=== PATIENT | male | born 1935 | race Caucasian/White ===

== ENCOUNTER 2017-12-12 15:28 | Inpatient (IN) | payer MEDICARE, OTHER, SELFPAY ==
[2017-12-12 15:45] VITALS: BP 153/55; PULSE 68; RESP 19; TEMP 37; O2SAT 97
--- NOTE | 2017-12-12 16:36 | DI.RAD.S_ITS ---
PROCEDURE: XR KNEE RT 3V INDICATIONS: pain TECHNIQUE: 3 views of the knee were acquired. COMPARISON: None. FINDINGS: Bones: No fractures or dislocations but there is calcific tendinitis involving the quadriceps tendon insertion on the superior anterior border of the patella and also the patellar tendon insertion on the anterior tibial tubercle. No suspicious bony lesions. Soft tissues: No definite joint effusion but there does appear to be mild soft tissue swelling in the suprapatellar soft tissues seen on the lateral view and also anterior to the patella on the patellar sunrise view. No suspicious soft tissue calcifications. IMPRESSION: A fracture is not seen. There is soft tissue swelling adjacent to the upper anterior border of the patella and perhaps this results from some recent form of trauma to the soft tissues. Please also correlate for whether infection in the soft tissues might be present. Incidental mode is made of mild calcific tendinitis as discussed. Dictated by: Eran Delatorre M.D. on 12/12/2017 at 16:58 Approved by: Eran Delatorre M.D. on 12/12/2017 at 17:01
[2017-12-12 16:41] VITALS: BMI 24.5
[2017-12-12 16:53] VITALS: BP 153/55; PULSE 68; RESP 19; TEMP 37; O2SAT 97
--- NOTE | 2017-12-12 17:14 | PM.HP.1 ---
History of Present Illness Date Patient Seen: 12/12/17 Time Patient Seen: 13:16 Chief complaint: DIRECT ADMIT Narrative: Patient has a known hx of severe gout for some time. He developed particular pain in r knee a cuple mos ago that grew increasingly disabling, to the point were he has spend most of the ensuing mos in bed, ardly able to get to the bath or other ADLs. Has pain diffusely, but sarah in the knee. Wif finally talked him in to being seen, so was brought to office by brother in law, who said it was all they could do to get him out of his bedroom and into the car, did not feel they could do the reverse. Pt feels OK about admission and SNF as needed. Just wants help with the pain and to get backon his feet. Given this admission was required, and feel he is likely to need more than 2 mn staty to get this sorted out and tx underway. Patient History Comment: CABG Ankle surgery Greater tuberosity fx, ORIF Family & Social History Family History: Reviewed 12/12/17 by Andrew Alexandra MD Family history unavailable: No Social History: household members spouse,family,children Safety & Behavioral: Feels Safe in Current Yes Environment Been Physically Hurt or No Threatened By a Person Suicidal Ideation Description None Suicide Plan Description No Plan Tobacco & Substance use: Smoking Status Never smoker alcohol intake current alcohol intake frequency a few times a month Substance Use Type does not use Meds Home Medications Medication Instructions Recorded Confirmed Type probenecid 500 mg PO AMCC #0 tab 02/16/16 History sertraline 100 mg PO QDAY #0 tab 02/16/16 History VITAMIN D (Vitamin D3) 5,000 u PO QDAY #0 06/23/17 History clopidogrel [Plavix] 75 mg PO 1200 #30 tab 06/29/17 Rx pantoprazole [Protonix] 40 mg IV Q12H #30 tab 06/29/17 Rx prednisone 60 mg PO QDAY 14 Days #0 tab 06/29/17 Rx probenecid 500 mg PO AMCC #30 tab 06/29/17 Rx sertraline [Zoloft] 100 mg PO 1200 #30 06/29/17 Rx clopidogrel PO DAILY 12/12/17 History Review of Systems Constitutional Constitutional: Reports body ache(s), Reports fatigue, Reports malaise and Reports weakness Eyes Eyes: Reports system reviewed; no additional complaints, except as documented ENT Ears, Nose, Mouth, and Throat: Yes system reviewed; no additional complaints, except as documented Cardiovascular Cardiovascular: Reports system reviewed; no additional complaints, except as documented Respiratory Respiratory: Reports system reviewed and no additional complaints, except as documented Gastrointestinal Gastrointestinal: Reports system reviewed and no additional complaints, except as documented Genitourinary Genitourinary: Reports system reviewed and no additional complaints, except as documented Musculoskeletal Musculoskeletal: Reports abnormal gait, Reports myalgias, Reports arthralgias, Reports joint swelling and Reports muscle weakness Integumentary/Breasts Skin/Breast: Reports system reviewed and no additional complaints, except as documented Neurologic Neurologic: Reports abnormal gait, Reports confusion and Reports weakness Psychiatric Psychiatric: Reports confusion and Reports depression Endocrine Endocrine: Reports system reviewed and no additional complaints, except as documented and Reports fatigue Hematologic/Lymphatic Hematologic/Lymphatic: Reports system reviewed and no additional complaints, except as documented Allergic/Immunologic Allergic/Immunologic: Reports system reviewed and no additional complaints, except as documented Exam Vital Signs (past 8 hours): Vital Signs - 8 hr 12/12/17 15:45 12/12/17 16:53 Temperature 98.6 F 98.6 F Pulse Rate 68 68 Respiratory Rate 19 19 Blood Pressure 153/55 H 153/55 H Pulse Oximetry 97 97 Pulse Oximetry 97 Const General: frail appearing and ill appearing [facility] Head: normocephalic and atraumatic Ears: external ears normal Nose: external nose normal Face and sinus: normal facial exam Mouth: oral mucosae normal Teeth and gingiva: dentition normal Eyes General: appearance normal, both eyes and all related structures Neck Neck: normal visual inspection Thyroid: thyroid normal Chest Chest: normal inspection of the chest Resp Effort & Inspection: normal respiratory effort and able to speak in complete sentences Cardio Palpation: normal PMI Rate: regular rate Rhythm: regular rhythm GI Inspection: normal to inspection Palpation: soft and no hepatosplenomegaly Auscultation: normal bowel sounds Back/Spine/Pelvis Back: normal to inspection and back tenderness Thoracic/Lumbar Spine: thoracic and lumbar spine normal to inspection Skin General: no rashes or lesions noted Neuro General: alert, awake, oriented x3, moves all extremities, no focal motor deficits and CN's II-XI intact bilaterally Cognition: abnormal cognition Speech: speech normal Gait: ataxic Motor: muscle tone normal throughout Extrem Right upper extremity: normal to inspection Left upper extremity: normal to inspection Right lower extremity: knee Details: tenderness and swelling Left lower extremity: foot Details: tenderness Psych Appearance: grossly normal Mental Status: mental status grossly normal Assessment & Plan (1) Gout: Problem details: Chronic and worsening, now profoundly disabling Current visit: Yes Status: Acute (2) Gouty tophi: Problem details: multiple, some painful Current visit: Yes Status: Acute (3) Generalized weakness: Problem details: Worsening, essentially bed-bound Current visit: Yes Status: Acute (4) Myalgia: Problem details: Some hx of PMR Current visit: Yes Status: Acute (5) Arthralgia: Problem details: as above Current visit: Yes Status: Acute (6) Chronic renal failure, stage 3 (moderate): Problem details: long hx Current visit: No Status: Acute (7) Coronary artery disease: Problem details: not a current concern Current visit: No Status: Acute (8) Depression: Problem details: ongoing medication Current visit: No Status: Acute (9) Hyperlipidemia: Problem details: on med Current visit: No Status: Acute (10) Polymyalgia rheumatica: Problem details: not certain of current status, followed by rheum. Current visit: No Status: Acute (11) Systolic murmur: Current visit: No Status: Acute (12) Chronic pain: Problem details: as above. Current visit: Yes Status: Acute (13) Anemia: Current visit: No Status: Acute Plan: Assessment/Plan Narrative: will treat gout aggressively with combo of uloric, colchicine, prednisone, and narcotics. Check x-ray of knee, and labs. Eval by PT and OT. Likely SNF to follow. Quality VTE Deep Vein Thrombosis/Pulmonary Embolism Present on Admission: No
[2017-12-12] MEDS: PANTOPRAZOLE 40 MG VIAL IV (17:31)
[2017-12-12] MEDS: predniSONE 20 MG TABLET 60 MG PO (17:31)
[2017-12-12] MEDS: SERTRALINE 50 MG TABLET 100 MG PO (17:31)
[2017-12-12] MEDS: OXYCODONE IR 10 MG TABLET PO (17:32)
[2017-12-12 17:54] LABS: Hematocrit 31.6 % (41-53); Hemoglobin 10.4 g/dL (13.5-17.5); Mean Corpuscular HGB Conc 32.8 % (30-36); Mean Corpuscular Hemoglobin 28.3 PG (26-34); Mean Corpuscular Volume 86.2 fL (80-100); Platelet Count 256 X10^3/uL (150-400); Red Blood Cell Count 3.66 X10^6/uL (4.5-5.9); Red Cell Distribution Width 17.9 % (11.6-14.8); White Blood Cell Count 11.6 X10^3/uL (4.5-11.0)
[2017-12-12 17:59] LABS: Add Manual Diff / Slide Review YES
[2017-12-12 19:06] LABS: Alanine Aminotransferase 59 IU/L (21-72); Albumin 3.4 g/dL (3.5-5.0); Albumin Globulin Ratio 0.9 (1.0-2.8); Alkaline Phosphatase 78 U/L (38-126); Aspartate Aminotransferase 36 IU/L (17-59); Bilirubin Total 0.4 mg/dL (0.2-1.3); Blood Urea Nitrogen 64 mg/dL (9-20); Calcium 9.7 mg/dL (8.4-10.2); Carbon Dioxide 22 mmol/L (22-32); Chloride 107 mmol/L (98-107); Estimated Glomerular Filt Rate 32.3 mL/min (>60); Globulin 3.7 g/dL (1.7-4.1); Glucose 116 mg/dL (80-110); HEMOLYSIS 41 (0-50); Potassium 4.2 mmol/L (3.4-5.1); Sodium 142 mmol/L (137-145); Total Protein 7.1 g/dL (6.3-8.2); Uric Acid 5.7 mg/dL (3.5-8.5)
[2017-12-12 19:08] LABS: Neutrophils Absolute Manual 8816 /uL (3000-5900); Nucleated Red Blood Cells 1 #/Diff; Total Cells Counted 100
[2017-12-12 19:09] LABS: Anisocytosis 1+
[2017-12-12 20:30] VITALS: BP 156/74; PULSE 69; RESP 19; TEMP 37.1; O2SAT 96
[2017-12-12 20:37] LABS: Erythrocyte Sedimentation Rate 133 MM/HR (0-15)
[2017-12-12] MEDS: COLCHICINE 0.6 MG TABLET PO (20:55)
[2017-12-12 23:00] VITALS: BP 164/71; PULSE 55; RESP 16; TEMP 36.7; O2SAT 98
[2017-12-13] VITALS (10 sets, daily range): BP systolic 147–191; BP diastolic 60–81; PULSE 47–59; RESP 16–18; TEMP 35.8–37.1; O2SAT 95–99
[2017-12-13] MEDS: OXYCODONE IR 10 MG TABLET PO ×4 (00:21→23:50)
[2017-12-13] MEDS: PANTOPRAZOLE 40 MG VIAL IV ×2 (04:26→16:54)
[2017-12-13] MEDS: SODIUM CHLORIDE 0.9% FLUSH 10 ML IV ×4 (04:26→21:09)
[2017-12-13] MEDS: COLCHICINE 0.6 MG TABLET PO (09:16)
[2017-12-13] MEDS: ENOXAPARIN 40 MG/0.4 ML SYRINGE SUBCUT (09:16)
[2017-12-13] MEDS: FEBUXOSTAT PO (09:17)
[2017-12-13] MEDS: predniSONE 20 MG TABLET 60 MG PO (09:21)
[2017-12-13] MEDS: SERTRALINE 50 MG TABLET 100 MG PO (09:21)
--- NOTE | 2017-12-13 12:21 | PT.IIE ---
Current Diagnoses Anemia, unspecified (12/12/17) Hyperlipidemia, unspecified (12/12/17) Major depressive disorder, single episode, unspecified (12/12/17) Atherosclerotic heart disease of [place] coronary artery without angina pectoris (12/12/17) Chronic gout, unspecified, with tophus (tophi) (12/12/17) Pain in unspecified joint (12/12/17) Polymyalgia rheumatica (12/12/17) Myalgia (12/12/17) Chronic kidney disease, stage 3 (moderate) (12/12/17) Cardiac murmur, unspecified (12/12/17) Physical Therapy Inpatient Evaluation/Re-Eval M1 PT/OT-IP Prior Functional Status Start: 12/13/17 12:10 Freq: NEEDED Status: Active Protocol: Document 12/13/17 12:11 AB (Rec: 12/13/17 12:21 AB [id number]) Medical Review Prior Functional Status Medical History Reviewed Yes Mobility and Gait per daughter: pt requires assists with all tasks. spouse has been assistng pt for the ~ last 7 months and pt not able to ambulate without physical assist even with use of FWW. Activities of Daily Living and IADL's requires assist with all ADLs Social History Household Members spouse Living Arrangements House Number of Floors (Floors) Two Floors Number of Stairs To Enter/Railing? 1 step to enter; 15 steps + landing+15 steps to 2nd floor bed room with R rail ascending Home Environment Standard Height Toilet Walk in Shower Home Equipment Front Wheel Walker Shower Seat with Backrest Employment Status Retired M2 PT-IP Current Condition Start: 12/13/17 12:10 Freq: NEEDED Status: Active Protocol: Document 12/13/17 12:11 AB (Rec: 12/13/17 12:21 AB [id number]) Physical Therapy Current Condition Current Condition Evaluation Date 12/13/17 Treatment Diagnosis R knee pain Onset Date 12/12/17 M3 PT-IP Subjective Start: 12/13/17 12:10 Freq: NEEDED Status: Active Protocol: Document 12/13/17 12:11 AB (Rec: 12/13/17 12:21 AB [id number]) Subjective Physical Therapy Visit Type Type Initial Evaluation Visit Start Time 10:55 Visit Stop Time 11:30 Total Visit Minutes 35 Number of LEASING PROPERTY MANAGER Visits 0 Physical Therapy Visit Comments Patient Comments pt agreeable to do therapy Therapy Pain Assessment Pain When Pain Assessed At Rest Pain Present Pain Present Pain Reported Location Right Knee Intensity 6 Scale Used Numeric (1 - 10) M4 PT-IP Mobility and Gait Start: 12/13/17 12:10 Freq: NEEDED Status: Active Protocol: Document 12/13/17 12:11 AB (Rec: 12/13/17 12:21 AB [id number]) PT-Bed Mobility Assessment Supine to Sit Supine to Sit Standby Assistance Bedrails PT-Transfer Assessment Sit to and From Stand Sit to and from Stand Moderate Assistance Maximum Assistance Transfers Transfer Destination Chair Comments Mobility Comments required mod to max A and cues for sit <>stand; initially was not weight bearing on R knee and required instruction/ cue to weight bear Gait Assessment Gait Gait Assistance Required: Moderate Assistance Maximum Assistance Distance (Feet) (feet) 15 Able to Maintain Weight Bearing Status Yes During Gait Assistive Devices Assistive Device Gait Belt Front Wheeled Walker Gait Deviations General Gait Pattern Antalgic Decreased Stride Length Decreased Feet Clearance Factors Limiting Gait Function Factors Limiting Gait Function Decreased Activity Tolerance Decreased Strength Pain Poor Balance Poor Safety Awareness Comments Gait Comments increase R knee flexion during standing/ambulation; initial ambulation requiring mod A but required max A towards end of ambulation PT-Balance Assessment Sitting Balance and Reactions Static Sitting Balance Ability Good Dynamic Sitting Balance Ability Fair Standing Balance and Reactions Static Standing Balance Ability Fair Dynamic Standing Balance Ability Poor M5 PT-IP Objective Assessments Start: 12/13/17 12:10 Freq: NEEDED Status: Active Protocol: Document 12/13/17 12:11 AB (Rec: 12/13/17 12:21 AB [id number]) Orientation Orientation/Cognition Level of Alertness Alert Orientation Name Place Situation Safety Awareness Decreased Safety Awareness Memory Description Short Term Impaired Jail Impaired Gross Range of Motion Lower Extremity ROM Assessment Bilaterally Impaired Impairments R knee flexion contracture of ~ 30 deg Strength Lower Extremity Strength Assessment Bilaterally Impaired Comments Strength Comments RLE 3+/5 LLE4-/5 M6 PT-IP Treatment Start: 12/13/17 12:10 Freq: NEEDED Status: Active Protocol: Document 12/13/17 12:11 AB (Rec: 12/13/17 12:21 AB [id number]) Physical Therapy Treatment Education Education Provided Safety M7 PT-IP Assessment and Plan Start: 12/13/17 12:10 Freq: NEEDED Status: Active Protocol: Document 12/13/17 12:11 AB (Rec: 12/13/17 12:21 AB [id number]) PT Summary Assessment and Plan Potential Rehabilitation Potential Fair Status of Condition at Evaluation Evolving Summary Impairments Pain ROM Strength Balance Tone Cognition Bed Mobility Transfers Gait Activity Tolerance Assessment Summary pt requiring mod to max A with mobility and has decrease activity tolerance requiring increase assistance towards end of ambulation. pt will require SNF rehab to improve function. Goals Bed Mobility Goal Contact Guard Assistance Transfer Goal Contact Guard Assistance Gait Goal Contact Guard Assistance Gait Distance 50 Other Goals up/down 1 step using FWW; ~ 30 steps using R rail ascending CGA Days to Meet Goals 5 Frequency of Treatment Frequency Of Treatment Twice a Day Treatment Plan Physical Therapy Treatment Plan Bed Mobility Training Transfer Training Gait Training Therapeutic Exercise Balance Retraining Post Op Education Discharge Planning Hot or Cold Pack Neuromuscular Re-ed Coordination Retraining Manual Therapy Other Recommendations and Next Treatment ambulation Focus Recommendations To Nursing Amount of Assist Needed 1 Person Assist Discharge Recommendations PT Discharge Recommendations SNF Rehab Provider Visit Care Team Role Provider Type Richard Espino MD Other Providers Physician Primary Care Provider Specialty: Family Practice Andrew Alexandra MD Admit Provider Physician Attending Provider Specialty: Family Practice
--- NOTE | 2017-12-13 13:19 | P.PN_ITS ---
Subjective Date Patient Seen: 12/13/17 Time Patient Seen: 13:13 Interval history: Patient continues with stable vital signs. Labs pending for this morning's findings. Blood pressure is elevated probably secondary to discomfort. Patient quite weak from weeks if not more of immobility secondary to pain. She has had severe and refractory gout being managed by Oncology also a component of polymyalgia rheumatica. All these things leading to sed rates of 130+. Patient also has significant component of depression as well as chronic pain. All these think are affecting clear cognitive behavior patient refused to come in for medical appointment until medication becomes too ill to take care of ADLs and gets weak enough that he can get out of bed no component of chest pain or significant shortness of breath. X-rays and lab work show borderline white count normal x-ray of knee except for soft tissue which could be a gouty tophus. Patient is on prednisone now should start the level things out in short order will need PT and probably Exam Vital Signs (past 8 hours): Vital Signs - 8 hr 3 12/13/17 08:00 12/13/17 09:20 12/13/17 12:09 Temperature 98.1 F 97.8 F Pulse Rate 47 L 55 L Respiratory Rate 18 17 Blood Pressure 166/68 H 158/81 H Pulse Oximetry 98 95 99 Pulse Oximetry 99 Oxygen Delivery Method Room Air Oxygen Flow Rate 0 Narrative Exam Narrative: Patient alert and responsive speaking clearly Other signs stable afebrile PERRLA Neck without mass or thyromegaly Lungs clear to auscultation and percussion Cardiovascular shows regular rate rhythm without as the 3 does have slight systolic murmur unchanged and no significant edema except around inflammatory areas of gout. GI with no CVA area pain and. No mass no pedal splenomegaly no rebound and no guarding. Back is spine and pelvis unremarkable. Skin is diffuse areas of inflammatory tophi I doubt there primarily infectious. I think that there probably large gouty deposits which if patient has some severe and refractory gout on multiple medications has not been hydrating or managing very well at home. Neuro shows patient alert oriented sensorimotor intact and symmetrical. Psych shows patient to be depressed flat affect not clearly mentating extremely well Objective Labs Result Diagrams: 12/12/17 17:20 12/12/17 17:20 Labs: Laboratory Results - last 24 hr 06/05/18 06/05/18 06/05/18 17:20 17:20 17:20 WBC 11.6 H RBC 3.66 L Hgb 10.4 L Hct 31.6 L MCV 86.2 MCH 28.3 MCHC 32.8 RDW 17.9 H Plt Count 256 Neut % (Auto) Not Reportable Lymph % (Auto) Not Reportable Mcdonough % (Auto) Not Reportable Eos % (Auto) Not Reportable Baso % (Auto) Not Reportable Total Counted 100 Seg Neutrophils % 76.0 H Lymphocytes % (Manual) 16.0 L Monocytes % (Manual) 5.0 Eosinophils % (Manual) 1.0 L Myelocytes % 2.0 H Neutrophils # (Manual) 8816 H Nucleated RBCs 1 H RBC Morphology Not Reportable Anisocytosis 1+ H ESR 133 H Sodium 142 Potassium 4.2 Chloride 107 Carbon Dioxide 22 BUN 64 H Creatinine 2.00 H Estimated GFR 32.3 L BUN/Creatinine Ratio 32.0 H Glucose 116 H Uric Acid 5.7 Calcium 9.7 Total Bilirubin 0.4 AST 36 ALT 59 Alkaline Phosphatase 78 Total Protein 7.1 Albumin 3.4 L Globulin 3.7 Albumin/Globulin Ratio 0.9 L Assessment & Plan Plan: Assessment/Plan Narrative: Assessment 1. Patient with severe refractory gout with intolerance of a number of medications. Patient is admitted for hydration started and prednisone initiated will continue on Uloric as well. Assessment 2. Weakness think patient is be come dehydrated and immobilized by pain to the point where he is unable stand move himself safely in anyway anticipate extended period of physical therapy required to get him to a safe point. Assessment 3. History of PMR. This could account for a muscular component to some of his pain as opposed to just gouty arthropathy. Has had elevated sed rate to 130 and that would match more with the polymyalgia component. Very complex presentation. Assessment 4. Chronic renal failure with acute renal failure superimposed. Creatinine at 2. Will hydrate and monitor values. 4. Assessment 5. Dehydration the patient was mobilized not drinking fluids while this has led to aggravation of his gout and also lead to constipation issues I think as well. Will give fluids and work on oral hydration Assessment 6 anemia. I think this is the anemia of chronic disease as well as probably related to his renal functions. Patient has continued to have long- term outs patient management with Rheumatology as well as Nephrology for managing this and all probability will monitor currently here anticipated hydration may dilute his hematocrit some. Quality VTE Deep Vein Thrombosis/Pulmonary Embolism Present on Admission: No
[2017-12-13] MEDS: CLOPIDOGREL 75 MG TABLET PO (13:58)
[2017-12-13] MEDS: DEXTROSE 5%-0.9% NS 1,000 ML 125 ML IV ×2 (14:00→22:11)
[2017-12-13 14:38] LABS: Hemoglobin 10.4 g/dL (13.5-17.5); Mean Corpuscular HGB Conc 32.5 % (30-36); Mean Corpuscular Hemoglobin 28.2 PG (26-34); Mean Corpuscular Volume 86.5 fL (80-100); Platelet Count 250 X10^3/uL (150-400); Red Blood Cell Count 3.71 X10^6/uL (4.5-5.9); Red Cell Distribution Width 17.9 % (11.6-14.8)
[2017-12-13 14:39] LABS: Add Manual Diff / Slide Review YES
[2017-12-13 14:58] LABS: Alanine Aminotransferase 54 IU/L (21-72); Albumin 3.1 g/dL (3.5-5.0); Alkaline Phosphatase 81 U/L (38-126); Aspartate Aminotransferase 21 IU/L (17-59); BUN Creatinine Ratio 32.8 (6-22); Bilirubin Total 0.3 mg/dL (0.2-1.3); Blood Urea Nitrogen 59 mg/dL (9-20); Calcium 9.5 mg/dL (8.4-10.2); Carbon Dioxide 19 mmol/L (22-32); Chloride 104 mmol/L (98-107); Estimated Glomerular Filt Rate 36.5 mL/min (>60); Globulin 3.2 g/dL (1.7-4.1); Glucose 162 mg/dL (80-110); HEMOLYSIS < 15 (0-50); Potassium 5.1 mmol/L (3.4-5.1); Sodium 138 mmol/L (137-145); Total Protein 6.3 g/dL (6.3-8.2)
--- NOTE | 2017-12-13 16:32 | PT.IPTN ---
Current Diagnoses Anemia, unspecified (12/12/17) Hyperlipidemia, unspecified (12/12/17) Major depressive disorder, single episode, unspecified (12/12/17) Atherosclerotic heart disease of [place] coronary artery without angina pectoris (12/12/17) Chronic gout, unspecified, with tophus (tophi) (12/12/17) Pain in unspecified joint (12/12/17) Polymyalgia rheumatica (12/12/17) Myalgia (12/12/17) Chronic kidney disease, stage 3 (moderate) (12/12/17) Cardiac murmur, unspecified (12/12/17) Physical Therapy Treatment Note M2 PT-IP Current Condition Start: 12/13/17 12:10 Freq: NEEDED Status: Active Protocol: Document 12/13/17 16:18 TMS (Rec: 12/13/17 16:32 TMS [id number]) Physical Therapy Current Condition Current Condition Evaluation Date 12/13/17 Treatment Diagnosis R knee pain Onset Date 12/12/17 M3 PT-IP Subjective Start: 12/13/17 12:10 Freq: NEEDED Status: Active Protocol: Document 12/13/17 16:18 TMS (Rec: 12/13/17 16:32 TMS [id number]) Subjective Physical Therapy Visit Type Type Treatment Note Visit Start Time 15:55 Visit Stop Time 16:15 Total Visit Minutes 20 Number of MEDICAL RECORDS LIBRARY PROFESSOR Visits 1 Physical Therapy Visit Comments Patient Comments Pt. sitting in chair, states he walked to bathroom earlier. M4 PT-IP Mobility and Gait Start: 12/13/17 12:10 Freq: NEEDED Status: Active Protocol: Document 12/13/17 16:18 TMS (Rec: 12/13/17 16:32 TMS [id number]) PT-Transfer Assessment Sit to and From Stand Sit to and from Stand Minimal Assistance Equipment Transfer Assistive Device Front Wheeled Walker Orthotic/Prosthetic Devices or Brace: No Transfers Transfer Destination Chair Comments Mobility Comments Less assist needed for sit> stand this PM, needed min-A and cues. Gait Assessment Gait Gait Assistance Required: Minimum Assistance 1 Person Assist Distance (Feet) (feet) 25 Able to Maintain Weight Bearing Status Yes During Gait Assistive Devices Assistive Device Gait Belt Front Wheeled Walker Gait Deviations General Gait Pattern Antalgic Decreased Stride Length Decreased Feet Clearance Factors Limiting Gait Function Factors Limiting Gait Function Decreased Activity Tolerance Decreased Strength Pain Poor Balance Poor Safety Awareness Comments Gait Comments Pt. unable to put full weight on right foot with gait, needed cues to use U.E's more, also cues for sequencing. PT-Balance Assessment Sitting Balance and Reactions Static Sitting Balance Ability Good Dynamic Sitting Balance Ability Fair Standing Balance and Reactions Static Standing Balance Ability Fair Dynamic Standing Balance Ability Poor M5 PT-IP Objective Assessments Start: 12/13/17 12:10 Freq: NEEDED Status: Active Protocol: Document 12/13/17 12:11 AB (Rec: 12/13/17 12:21 AB [id number]) Orientation Orientation/Cognition Level of Alertness Alert Orientation Name Place Situation Safety Awareness Decreased Safety Awareness Memory Description Short Term Impaired Long-Term Impaired Gross Range of Motion Lower Extremity ROM Assessment Bilaterally Impaired Impairments R knee flexion contracture of ~ 30 deg Strength Lower Extremity Strength Assessment Bilaterally Impaired Comments Strength Comments RLE 3+/5 LLE4-/5 M6 PT-IP Treatment Start: 12/13/17 12:10 Freq: NEEDED Status: Active Protocol: Document 12/13/17 12:11 AB (Rec: 12/13/17 12:21 AB [id number]) Physical Therapy Treatment Education Education Provided Safety M7 PT-IP Assessment and Plan Start: 12/13/17 12:10 Freq: NEEDED Status: Active Protocol: Document 12/13/17 16:18 TMS (Rec: 12/13/17 16:32 TMS [id number]) PT Summary Assessment and Plan Frequency of Treatment Frequency Of Treatment Twice a Day Treatment Plan Physical Therapy Treatment Plan Bed Mobility Training Transfer Training Gait Training Therapeutic Exercise Coordination Retraining Recommendations To Nursing Amount of Assist Needed 1 Person Assist Discharge Recommendations PT Discharge Recommendations SNF Rehab
--- NOTE | 2017-12-13 16:32 | PT.IPTN ---
Current Diagnoses Anemia, unspecified (12/12/17) Hyperlipidemia, unspecified (12/12/17) Major depressive disorder, single episode, unspecified (12/12/17) Atherosclerotic heart disease of [place] coronary artery without angina pectoris (12/12/17) Chronic gout, unspecified, with tophus (tophi) (12/12/17) Pain in unspecified joint (12/12/17) Polymyalgia rheumatica (12/12/17) Myalgia (12/12/17) Chronic kidney disease, stage 3 (moderate) (12/12/17) Cardiac murmur, unspecified (12/12/17) Physical Therapy Treatment Note M2 PT-IP Current Condition Start: 12/13/17 12:10 Freq: NEEDED Status: Active Protocol: Document 12/13/17 16:18 TMS (Rec: 12/13/17 16:32 TMS [id number]) Physical Therapy Current Condition Current Condition Evaluation Date 12/13/17 Treatment Diagnosis R knee pain Onset Date 12/12/17 M3 PT-IP Subjective Start: 12/13/17 12:10 Freq: NEEDED Status: Active Protocol: Document 12/13/17 16:18 TMS (Rec: 12/13/17 16:32 TMS [id number]) Subjective Physical Therapy Visit Type Type Treatment Note Visit Start Time 15:55 Visit Stop Time 16:15 Total Visit Minutes 20 Number of CRANK HAND Visits 1 Physical Therapy Visit Comments Patient Comments Pt. sitting in chair, states he walked to bathroom earlier. M4 PT-IP Mobility and Gait Start: 12/13/17 12:10 Freq: NEEDED Status: Active Protocol: Document 12/13/17 16:18 TMS (Rec: 12/13/17 16:32 TMS [id number]) PT-Transfer Assessment Sit to and From Stand Sit to and from Stand Minimal Assistance Equipment Transfer Assistive Device Front Wheeled Walker Orthotic/Prosthetic Devices or Brace: No Transfers Transfer Destination Chair Comments Mobility Comments Less assist needed for sit> stand this PM, needed min-A and cues. Gait Assessment Gait Gait Assistance Required: Minimum Assistance 1 Person Assist Distance (Feet) (feet) 25 Able to Maintain Weight Bearing Status Yes During Gait Assistive Devices Assistive Device Gait Belt Front Wheeled Walker Gait Deviations General Gait Pattern Antalgic Decreased Stride Length Decreased Feet Clearance Factors Limiting Gait Function Factors Limiting Gait Function Decreased Activity Tolerance Decreased Strength Pain Poor Balance Poor Safety Awareness Comments Gait Comments Pt. unable to put full weight on right foot with gait, needed cues to use U.E's more, also cues for sequencing. PT-Balance Assessment Sitting Balance and Reactions Static Sitting Balance Ability Good Dynamic Sitting Balance Ability Fair Standing Balance and Reactions Static Standing Balance Ability Fair Dynamic Standing Balance Ability Poor M5 PT-IP Objective Assessments Start: 12/13/17 12:10 Freq: NEEDED Status: Active Protocol: Document 12/13/17 12:11 AB (Rec: 12/13/17 12:21 AB [id number]) Orientation Orientation/Cognition Level of Alertness Alert Orientation Name Place Situation Safety Awareness Decreased Safety Awareness Memory Description Short Term Impaired Mcfp Impaired Gross Range of Motion Lower Extremity ROM Assessment Bilaterally Impaired Impairments R knee flexion contracture of ~ 30 deg Strength Lower Extremity Strength Assessment Bilaterally Impaired Comments Strength Comments RLE 3+/5 LLE4-/5 M6 PT-IP Treatment Start: 12/13/17 12:10 Freq: NEEDED Status: Active Protocol: Document 12/13/17 12:11 AB (Rec: 12/13/17 12:21 AB [id number]) Physical Therapy Treatment Education Education Provided Safety M7 PT-IP Assessment and Plan Start: 12/13/17 12:10 Freq: NEEDED Status: Active Protocol: Document 12/13/17 16:18 TMS (Rec: 12/13/17 16:32 TMS [id number]) PT Summary Assessment and Plan Frequency of Treatment Frequency Of Treatment Twice a Day Treatment Plan Physical Therapy Treatment Plan Bed Mobility Training Transfer Training Gait Training Therapeutic Exercise Coordination Retraining Recommendations To Nursing Amount of Assist Needed 1 Person Assist Discharge Recommendations PT Discharge Recommendations SNF Rehab
[2017-12-13 16:52] LABS: Neutrophils Absolute Manual 10010 /uL (3000-5900); Total Cells Counted 100
[2017-12-13 16:53] LABS: Anisocytosis 1+
--- NOTE | 2017-12-13 19:41 | OT.IP.EVAL ---
Current Diagnoses Anemia, unspecified (12/12/17) Hyperlipidemia, unspecified (12/12/17) Major depressive disorder, single episode, unspecified (12/12/17) Atherosclerotic heart disease of [place] coronary artery without angina pectoris (12/12/17) Chronic gout, unspecified, with tophus (tophi) (12/12/17) Pain in unspecified joint (12/12/17) Polymyalgia rheumatica (12/12/17) Myalgia (12/12/17) Chronic kidney disease, stage 3 (moderate) (12/12/17) Cardiac murmur, unspecified (12/12/17) Occupational Therapy Inpatient Evaluation/Re-Eval M1 PT/OT-IP Prior Functional Status Start: 12/13/17 19:26 Freq: NEEDED Status: Active Protocol: Document 12/13/17 19:26 CARLOS (Rec: 12/13/17 19:41 RAGHAVENDRA [id number]) Medical Review Prior Functional Status Medical History Reviewed Yes Diet/Fluid Consistency Regular Communication WFL Mobility and Gait per daughter: pt requires assists with all tasks. spouse has been assisting pt for the ~ last 7 months and pt not able to ambulate without physical assist even with use of FWW. 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 Social History Household Members spouse Living Arrangements House Number of Floors (Floors) Two Floors Number of Stairs To Enter/Railing? 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 M2 OT-IP Current Condition Start: 12/13/17 19:26 Freq: Status: Active Protocol: Document 12/13/17 19:26 CARLOS (Rec: 12/13/17 19:41 RAGHAVENDRA [id number]) Occupational Therapy Current Condition Current Condition Evaluation Date 12/13/17 Treatment Diagnosis decreased self care and functional mobility Diagnosis Onset Date 12/12/17 M3 OT- IP Subjective and Pain Start: 12/13/17 19:26 Freq: Status: Active Protocol: Document 12/13/17 19:26 PJKatty (Rec: 12/13/17 19:41 [facility] [id number]) OT- Subjective Occupational Therapy Visit Type Type Initial Evaluation Visit Start Time 14:35 Visit Stop Time 15:00 Total Visit Minutes 25 Occupational Therapy Visit Comments Patient Comments I have really gotten weaker over the past couple months. Patient/Caregiver Goals to be able to walk and go home OT Pain Assessment Pain When Pain Assessed At Rest Pain Present Pain Present Pain Reported Location Right Knee Intensity 2 Scale Used Numeric (1 - 10) Description Chronic Pain Behaviors Facial Grimacing Management Techniques Timing of Activity with Medications M4 OT- IP ADL's Start: 12/13/17 19:26 Freq: Status: Active Protocol: Document 12/13/17 19:26 PJ (Rec: 12/13/17 19:41 [facility] [id number]) OT [id number] General Evaluation Self-Feeding Ability Independent OT ADL-Grooming General Evaluation Grooming Ability Standby Assistance Comments OT Grooming Comments after set up in bed for face washing OT ADL-Dressing General Eval Upper Body Dressing Ability Minimal Assistance Lower Body Dressing Ability Total Assistance Comments OT Dressing Comments Min assist with gown in bed. Pt unable to reach below knees due to knee pain and stiffness. Pt has no AED at home. OT ADL-Toileting General Evaluation Toileting Ability Maximum Assistance OT ADL-Bathing Bathing Type Bathing Type Sponge Bath General Evaluation Bathing Ability Maximal Assistance M5 OT- IP IADL's Start: 12/13/17 19:26 Freq: Status: Active Protocol: Document 12/13/17 19:26 PJ (Rec: 12/13/17 19:41 [facility] [id number]) OT-Instrumental Activities of Daily Living Deficits IADL Deficits Identified Deficits Home Safety Awareness Awareness of Need for Assistance at Home Good Awareness Medication Management Medication Management Caregiver Provides Supervision Money Management Money Management Caregiver Provides Supervision Meal Preparation Meal Preparation Caregiver Provides Assist Police Surgeon Police Surgeon Caregiver Provides Assist Driving Driving Caregiver Provides Assist M6 OT- IP Functional Cognition Start: 12/13/17 19:26 Freq: Status: Active Protocol: Document 12/13/17 19:26 PJ (Rec: 12/13/17 19:41 [facility] [id number]) Cognitive Factors Limiting Selfcare Function Cognitive Ability Level of Alertness Alert Patient Orientation Name Attention Span Ability Capable of Focused Attention Ability to Follow Commands Able to Follow One Step Commands Memory Description Short Term Impaired Safety Awareness Underestimates Need for Assistance Problem Solving Ability Needs Assist to Identify Solutions Cognitive Comments Cognitive Assessment Comments Pt needs min cues for exact date and year. Mildly slowed speed of processing noted. OT- Vision and Hearing OT- Hearing Assessment OT- Hearing Assessment WFL OT- Vision Assessment Visual Acuity WFL Glasses For Reading M8 OT- IP Objective Assessments Start: 12/13/17 19:26 Freq: Status: Active Protocol: Document 12/13/17 19:26 PJ (Rec: 12/13/17 19:41 PJ [id number]) OT Gross Range of Motion Upper Extremity Range of Motion Assessment Left Impaired ROM Impairments B shoulder scaption limited to about 110 degrees by stiffness. OT Strength Upper Extremity Strength Assessment Bilaterally Impaired Shoulder 4-/5 Elbow 4/5 Hand 4-/5 Comments Strength Comments generally decreased BUE strength, no focal weakness noted OT- Coordination Assessment Comments Coordination Comments appears WFL BUE, but with stiffness in IP's OT-Muscle Tone Assessment Muscle Tone WNL Yes OT Sensation Assessment Comments Summary Comments Pt denies sensory deficits in BUE's Edema Edema Present Edema Comments R knee and L elbow swollen M9 OT- IP Assessment and Plan Start: 12/13/17 19:26 Freq: Status: Active Protocol: Document 12/13/17 19:26 PJM (Rec: 12/13/17 19:41 PJ [id number]) OT Summary Assessment and Plan Potential Analytic Complexity at Evaluation Low Summary OT Impairments Pain Strength Balance Functional Mobility Dressing Toileting Bathing Toilet Transfers Shower Transfers Assessment Summary Low complexity OT assessment completed. Pt has performance deficits in BUE strength/ endurance , all functional mobility/transfers, standing grooming, dressing, bathing and toileting. Pt does not appear safe to return home at this time and note that he has 2 flights of stairs up to his bedroom. He states there is no shower on the main floor. Recommend SNF at d/c for further subacute rehab services. Goals Grooming Goal Standby Assistance Dressing Goal Minimal Assistance Dressing Stick Long Handled Shoe Horn Lathe [place] Toileting Goal Minimal Assistance Bathing Goal Moderate Assistance Grab Bars Hand Held Shower Sprayer Long Handled Sponge or Council Toilet Transfer Goal Contact Guard Assistance Bedside Commode Shower Transfer Goal Minimal Assistance OT-Other Goals Pt will score WNL on cognitive screening task. Pt will complete BUE ex program with min cues. Days to Meet Goals 3 Frequency of Treatment Frequency Of Treatment Once a Day Treatment Plan OT Treatment Plan ADL Training Therapeutic Exercises Patient/Family Education Discharge Planning Discharge Recommendations OT Discharge Recommendations SNF Rehab
--- NOTE | 2017-12-13 23:41 | PC.NURSE ---
Patients concerned with with cognitive status, states he has become increasingly forgetful. BA active and call light within reach.
[2017-12-14] VITALS (9 sets, daily range): BP systolic 152–192; BP diastolic 57–91; PULSE 53–71; RESP 16–20; TEMP 36.5–36.8; O2SAT 97–98
[2017-12-14] MEDS: PANTOPRAZOLE 40 MG VIAL IV ×2 (03:59→17:03)
[2017-12-14 05:47] LABS: Hematocrit 27.6 % (41-53); Hemoglobin 9.1 g/dL (13.5-17.5); Mean Corpuscular HGB Conc 33.1 % (30-36); Mean Corpuscular Hemoglobin 28.3 PG (26-34); Mean Corpuscular Volume 85.6 fL (80-100); Platelet Count 222 X10^3/uL (150-400); Red Blood Cell Count 3.22 X10^6/uL (4.5-5.9); Red Cell Distribution Width 17.8 % (11.6-14.8); White Blood Cell Count 11.6 X10^3/uL (4.5-11.0)
[2017-12-14 05:48] LABS: Add Manual Diff / Slide Review YES
[2017-12-14] MEDS: OXYCODONE IR 10 MG TABLET PO (06:03)
[2017-12-14 06:16] LABS: Neutrophils Absolute Manual 9048 /uL (3000-5900); Total Cells Counted 100
[2017-12-14 06:17] LABS: Anisocytosis 1+; Rouleaux 2+
[2017-12-14] MEDS: DEXTROSE 5%-0.9% NS 1,000 ML 125 ML IV ×2 (06:30→15:49)
--- NOTE | 2017-12-14 09:06 | OT.IP.TRT ---
Current Diagnoses Anemia, unspecified (12/12/17) Hyperlipidemia, unspecified (12/12/17) Major depressive disorder, single episode, unspecified (12/12/17) Atherosclerotic heart disease of [place] coronary artery without angina pectoris (12/12/17) Chronic gout, unspecified, with tophus (tophi) (12/12/17) Pain in unspecified joint (12/12/17) Polymyalgia rheumatica (12/12/17) Myalgia (12/12/17) Chronic kidney disease, stage 3 (moderate) (12/12/17) Cardiac murmur, unspecified (12/12/17) Occupational Therapy Treatment Note M2 OT-IP Current Condition Start: 12/13/17 19:26 Freq: Status: Active Protocol: Document 12/13/17 19:26 PJ (Rec: 12/13/17 19:41 [facility] [id number]) Occupational Therapy Current Condition Current Condition Evaluation Date 12/13/17 Treatment Diagnosis decreased self care and functional mobility Diagnosis Onset Date 12/12/17 M3 OT- IP Subjective and Pain Start: 12/13/17 19:26 Freq: Status: Active Protocol: Document 12/14/17 08:45 [facility] (Rec: 12/14/17 09:06 [facility] [id number]) OT- Subjective Occupational Therapy Visit Type Type Treatment Note Visit Start Time 07:55 Visit Stop Time 08:25 Total Visit Minutes 30 Occupational Therapy Visit Comments Patient Comments Pt states know has gotten weak . OT Pain Assessment Pain When Pain Assessed At Rest Pain Present Pain Present Pain Reported M4 OT- IP ADL's Start: 12/13/17 19:26 Freq: Status: Active Protocol: Document 12/14/17 08:45 [facility] (Rec: 12/14/17 09:06 [facility] [id number]) OT ADL-Grooming General Evaluation Grooming Ability Minimal Assistance Comments OT Grooming Comments Chika for balance while standing at the sink, assist for opening all items. M5 OT- IP IADL's Start: 12/13/17 19:26 Freq: Status: Active Protocol: Document 12/13/17 19:26 PJ (Rec: 12/13/17 19:41 [facility] [id number]) OT-Instrumental Activities of Daily Living Deficits IADL Deficits Identified Deficits Home Safety Awareness Awareness of Need for Assistance at Home Good Awareness Medication Management Medication Management Caregiver Provides Supervision Money Management Money Management Caregiver Provides Supervision Meal Preparation Meal Preparation Caregiver Provides Assist Spot Welder Body Assembly Spot Welder Body Assembly Caregiver Provides Assist Driving Driving Caregiver Provides Assist M6 OT- IP Functional Cognition Start: 12/13/17 19:26 Freq: Status: Active Protocol: Document 12/14/17 08:45 [facility] (Rec: 12/14/17 09:06 [facility] [id number]) Cognitive Factors Limiting Selfcare Function Cognitive Ability Level of Alertness Alert Patient Orientation Name Attention Span Ability Capable of Focused Attention Ability to Follow Commands Able to Follow One Step Commands Memory Description Short Term Impaired Halfway Impaired Safety Awareness Underestimates Need for Assistance Problem Solving Ability Needs Assist to Identify Solutions Cognitive Comments Cognitive Assessment Comments Pt states nows that he has difficulty for STM and healviily relizes on his family for assist. M7 OT- IP Mobility and Balance Start: 12/13/17 19:26 Freq: Status: Active Protocol: Document 12/14/17 08:45 [facility] (Rec: 12/14/17 09:06 [facility] [id number]) OT- Bed Mobility Assessment Rolling Type of Rolling Roll to Left Level of Assistance Standby Assistance Bedrails Supine to Sit Supine to Sit Assist Standby Assistance Bedrails Scooting Scooting to Edge of Bed Standby Assistance OT-Transfer Assessment Sit to and From Stand Sit to and from Stand Minimal Assistance Moderate Assistance Transfers Transfer Ability Standby Assistance Technique Transfer Destination Chair Transfer Technique Stand Step Pivot Devices Transfer Assistive Devices Gait Belt Front Wheeled Walker Comments Mobility Comments Pt needing assist for vc for safety to be sure to push up from surface before standing and also needing assist from sit to stand and steadying once up as pt heavily uses arms on FWW and only putting 30% on his weight on RLE due to knee pain. OT- Balance Assessment Sitting Balance and Reactions Static Sitting Balance Ability Good Dynamic Sitting Balance Ability Fair Standing Balance and Reactions Static Standing Balance Ability Poor Dynamic Standing Balance Ability Poor M8 OT- IP Objective Assessments Start: 12/13/17 19:26 Freq: Status: Active Protocol: Document 12/13/17 19:26 PJM (Rec: 12/13/17 19:41 PJM [id number]) OT Gross Range of Motion Upper Extremity Range of Motion Assessment Left Impaired ROM Impairments B shoulder scaption limited to about 110 degrees by stiffness. OT Strength Upper Extremity Strength Assessment Bilaterally Impaired Shoulder 4-/5 Elbow 4/5 Hand 4-/5 Comments Strength Comments generally decreased BUE strength, no focal weakness noted OT- Coordination Assessment Comments Coordination Comments appears WFL BUE, but with stiffness in IP's OT-Muscle Tone Assessment Muscle Tone WNL Yes OT Sensation Assessment Comments Summary Comments Pt denies sensory deficits in BUE's Edema Edema Present Edema Comments R knee and L elbow swollen M9 OT- IP Assessment and Plan Start: 12/13/17 19:26 Freq: Status: Active Protocol: Document 12/14/17 08:45 [facility] (Rec: 12/14/17 09:06 [facility] [id number]) OT Summary Assessment and Plan Potential Analytic Complexity at Evaluation Low Summary OT Impairments Pain Strength Balance Functional Mobility Dressing Toileting Bathing Toilet Transfers Shower Transfers Progress Towards Goals Slow Progress due to Pain Slow Progress due to Activity Tolerance Slow Progress due to Cognition Goals Grooming Goal Standby Assistance Dressing Goal Minimal Assistance Dressing Stick Long Handled Shoe [place] Toileting Goal Minimal Assistance Bathing Goal Moderate Assistance Grab Bars Hand Held Shower Sprayer Long Handled Sponge or [place] Toilet Transfer Goal Contact Guard Assistance Bedside Commode Shower Transfer Goal Minimal Assistance Days to Meet Goals 3 Frequency of Treatment Frequency Of Treatment Once a Day Treatment Plan OT Treatment Plan ADL Training Therapeutic Exercises Patient/Family Education Discharge Planning Discharge Recommendations OT Discharge Recommendations SNF Rehab
--- NOTE | 2017-12-14 09:12 | PT.IPTN ---
Current Diagnoses Anemia, unspecified (12/12/17) Hyperlipidemia, unspecified (12/12/17) Major depressive disorder, single episode, unspecified (12/12/17) Atherosclerotic heart disease of [place] coronary artery without angina pectoris (12/12/17) Chronic gout, unspecified, with tophus (tophi) (12/12/17) Pain in unspecified joint (12/12/17) Polymyalgia rheumatica (12/12/17) Myalgia (12/12/17) Chronic kidney disease, stage 3 (moderate) (12/12/17) Cardiac murmur, unspecified (12/12/17) Physical Therapy Treatment Note M2 PT-IP Current Condition Start: 12/13/17 12:10 Freq: NEEDED Status: Active Protocol: Document 12/13/17 16:18 TMS (Rec: 12/13/17 16:32 TMS [id number]) Physical Therapy Current Condition Current Condition Evaluation Date 12/13/17 Treatment Diagnosis R knee pain Onset Date 12/12/17 M3 PT-IP Subjective Start: 12/13/17 12:10 Freq: NEEDED Status: Active Protocol: Document 12/13/17 16:18 TMS (Rec: 12/13/17 16:32 TMS [id number]) Subjective Physical Therapy Visit Type Type Treatment Note Visit Start Time 15:55 Visit Stop Time 16:15 Total Visit Minutes 20 Number of PANMAN Visits 1 Physical Therapy Visit Comments Patient Comments Pt. sitting in chair, states he walked to bathroom earlier. M4 PT-IP Mobility and Gait Start: 12/13/17 12:10 Freq: NEEDED Status: Active Protocol: Document 12/13/17 16:18 TMS (Rec: 12/13/17 16:32 TMS [id number]) PT-Transfer Assessment Sit to and From Stand Sit to and from Stand Minimal Assistance Equipment Transfer Assistive Device Front Wheeled Walker Orthotic/Prosthetic Devices or Brace: No Transfers Transfer Destination Chair Comments Mobility Comments Less assist needed for sit> stand this PM, needed min-A and cues. Gait Assessment Gait Gait Assistance Required: Minimum Assistance 1 Person Assist Distance (Feet) (feet) 25 Able to Maintain Weight Bearing Status Yes During Gait Assistive Devices Assistive Device Gait Belt Front Wheeled Walker Gait Deviations General Gait Pattern Antalgic Decreased Stride Length Decreased Feet Clearance Factors Limiting Gait Function Factors Limiting Gait Function Decreased Activity Tolerance Decreased Strength Pain Poor Balance Poor Safety Awareness Comments Gait Comments Pt. unable to put full weight on right foot with gait, needed cues to use U.E's more, also cues for sequencing. PT-Balance Assessment Sitting Balance and Reactions Static Sitting Balance Ability Good Dynamic Sitting Balance Ability Fair Standing Balance and Reactions Static Standing Balance Ability Fair Dynamic Standing Balance Ability Poor M5 PT-IP Objective Assessments Start: 12/13/17 12:10 Freq: NEEDED Status: Active Protocol: Document 12/13/17 12:11 AB (Rec: 12/13/17 12:21 AB [id number]) Orientation Orientation/Cognition Level of Alertness Alert Orientation Name Place Situation Safety Awareness Decreased Safety Awareness Memory Description Short Term Impaired Alf Impaired Gross Range of Motion Lower Extremity ROM Assessment Bilaterally Impaired Impairments R knee flexion contracture of ~ 30 deg Strength Lower Extremity Strength Assessment Bilaterally Impaired Comments Strength Comments RLE 3+/5 LLE4-/5 M6 PT-IP Treatment Start: 12/13/17 12:10 Freq: NEEDED Status: Active Protocol: Document 12/13/17 12:11 AB (Rec: 12/13/17 12:21 AB [id number]) Physical Therapy Treatment Education Education Provided Safety M7 PT-IP Assessment and Plan Start: 12/13/17 12:10 Freq: NEEDED Status: Active Protocol: Document 12/13/17 16:18 TMS (Rec: 12/13/17 16:32 TMS [id number]) PT Summary Assessment and Plan Frequency of Treatment Frequency Of Treatment Twice a Day Treatment Plan Physical Therapy Treatment Plan Bed Mobility Training Transfer Training Gait Training Therapeutic Exercise Coordination Retraining Recommendations To Nursing Amount of Assist Needed 1 Person Assist Discharge Recommendations PT Discharge Recommendations SNF Rehab
--- NOTE | 2017-12-14 09:20 | PC.NURSE ---
reported elevated BP to dr. Espino this morning when he saw patient. Patient up to chair with ot, ate breakfast. comfortable at this time with iv fluids infusing. continue to monitor.
[2017-12-14] MEDS: predniSONE 20 MG TABLET 60 MG PO (09:41)
[2017-12-14] MEDS: FEBUXOSTAT PO (09:42)
[2017-12-14] MEDS: ENOXAPARIN 40 MG/0.4 ML SYRINGE SUBCUT (09:42)
[2017-12-14] MEDS: SERTRALINE 50 MG TABLET 100 MG PO (09:42)
[2017-12-14] MEDS: COLCHICINE 0.6 MG TABLET PO ×2 (09:42→21:51)
--- NOTE | 2017-12-14 11:33 | PT.IPTN ---
Current Diagnoses Anemia, unspecified (12/12/17) Hyperlipidemia, unspecified (12/12/17) Major depressive disorder, single episode, unspecified (12/12/17) Atherosclerotic heart disease of [place] coronary artery without angina pectoris (12/12/17) Chronic gout, unspecified, with tophus (tophi) (12/12/17) Pain in unspecified joint (12/12/17) Polymyalgia rheumatica (12/12/17) Myalgia (12/12/17) Chronic kidney disease, stage 3 (moderate) (12/12/17) Cardiac murmur, unspecified (12/12/17) Physical Therapy Treatment Note M2 PT-IP Current Condition Start: 12/13/17 12:10 Freq: NEEDED Status: Active Protocol: Document 12/14/17 10:30 GGD (Rec: 12/14/17 11:32 GGD [id number]) Physical Therapy Current Condition Current Condition Evaluation Date 12/13/17 Treatment Diagnosis R knee pain Onset Date 12/12/17 M3 PT-IP Subjective Start: 12/13/17 12:10 Freq: NEEDED Status: Active Protocol: Document 12/14/17 10:30 GGD (Rec: 12/14/17 11:32 GGD [id number]) Subjective Physical Therapy Visit Type Type Treatment Note Visit Start Time 10:05 Visit Stop Time 10:30 Total Visit Minutes 25 Number of PATTERN GATER Visits 2 Physical Therapy Visit Comments Patient Comments Pt states he needs to use the bathroom. Therapy Pain Assessment Pain When Pain Assessed At Rest M4 PT-IP Mobility and Gait Start: 12/13/17 12:10 Freq: NEEDED Status: Active Protocol: Document 12/14/17 10:30 GGD (Rec: 12/14/17 11:32 GGD [id number]) PT-Transfer Assessment Sit to and From Stand Sit to and from Stand Minimal Assistance Equipment Transfer Assistive Device Front Wheeled Walker Orthotic/Prosthetic Devices or Brace: No Transfers Transfer Destination Chair Toilet Gait Assessment Gait Gait Assistance Required: Contact Guard Assist 1 Person Assist Distance (Feet) (feet) 50 Assistive Devices Assistive Device Gait Belt Front Wheeled Walker Gait Deviations General Gait Pattern Antalgic Decreased Stride Length Decreased Feet Clearance Factors Limiting Gait Function Factors Limiting Gait Function Decreased Activity Tolerance Decreased Strength Pain Poor Balance Poor Safety Awareness Comments Gait Comments Pt heavy use of UE with gait. M5 PT-IP Objective Assessments Start: 12/13/17 12:10 Freq: NEEDED Status: Active Protocol: Document 12/13/17 12:11 AB (Rec: 12/13/17 12:21 AB [id number]) Orientation Orientation/Cognition Level of Alertness Alert Orientation Name Place Situation Safety Awareness Decreased Safety Awareness Memory Description Short Term Impaired Agency Service Coordinator Impaired Gross Range of Motion Lower Extremity ROM Assessment Bilaterally Impaired Impairments R knee flexion contracture of ~ 30 deg Strength Lower Extremity Strength Assessment Bilaterally Impaired Comments Strength Comments RLE 3+/5 LLE4-/5 M6 PT-IP Treatment Start: 12/13/17 12:10 Freq: NEEDED Status: Active Protocol: Document 12/14/17 10:30 GGD (Rec: 12/14/17 11:32 GGD [id number]) Physical Therapy Treatment Exercises Exercises Ankle Pumps Quad Sets Heel Slides M7 PT-IP Assessment and Plan Start: 12/13/17 12:10 Freq: NEEDED Status: Active Protocol: Document 12/14/17 10:30 GGD (Rec: 12/14/17 11:32 GGD [id number]) PT Summary Assessment and Plan Summary Assessment Summary Pt improving with mobility and need less assist for sit to stand. He still has heavy use of UE and decrease weight bearing tolerance with gait. Frequency of Treatment Frequency Of Treatment Twice a Day Treatment Plan Other Recommendations and Next Treatment bed mobility, gait and knee Focus rom Recommendations To Nursing Amount of Assist Needed 1 Person Assist Discharge Recommendations PT Discharge Recommendations SNF Rehab
[2017-12-14] MEDS: CLOPIDOGREL 75 MG TABLET PO (13:16)
--- NOTE | 2017-12-14 14:05 | PT.IPTN ---
Current Diagnoses Anemia, unspecified (12/12/17) Hyperlipidemia, unspecified (12/12/17) Major depressive disorder, single episode, unspecified (12/12/17) Atherosclerotic heart disease of [place] coronary artery without angina pectoris (12/12/17) Chronic gout, unspecified, with tophus (tophi) (12/12/17) Pain in unspecified joint (12/12/17) Polymyalgia rheumatica (12/12/17) Myalgia (12/12/17) Chronic kidney disease, stage 3 (moderate) (12/12/17) Cardiac murmur, unspecified (12/12/17) Physical Therapy Treatment Note M2 PT-IP Current Condition Start: 12/13/17 12:10 Freq: NEEDED Status: Active Protocol: Document 12/14/17 13:51 GGD (Rec: 12/14/17 14:05 GGD [email or web address]) Physical Therapy Current Condition Current Condition Evaluation Date 12/13/17 Treatment Diagnosis R knee pain Onset Date 12/12/17 M3 PT-IP Subjective Start: 12/13/17 12:10 Freq: NEEDED Status: Active Protocol: Document 12/14/17 13:51 GGD (Rec: 12/14/17 14:05 GGD [email or web address]) Subjective Physical Therapy Visit Type Type Treatment Note Visit Start Time 13:10 Visit Stop Time 13:45 Total Visit Minutes 30 Number of [place] AND SILVERWARE SALESPERSON Visits 3 Physical Therapy Visit Comments Patient Comments Pt states that he just got to bed. M4 PT-IP Mobility and Gait Start: 12/13/17 12:10 Freq: NEEDED Status: Active Protocol: Document 12/14/17 13:51 GGD (Rec: 12/14/17 14:05 GGD [email or web address]) PT-Bed Mobility Assessment Supine to Sit Supine to Sit Standby Assistance Bedrails Sit to Supine Sit to Supine Standby Assistance PT-Transfer Assessment Sit to and From Stand Sit to and from Stand Contact Guard Assistance Use of Upper Extremities Equipment Transfer Assistive Device Front Wheeled Walker Orthotic/Prosthetic Devices or Brace: No Transfers Transfer Destination Bed Toilet Comments Mobility Comments Pt uses other LE to lift right LE. Gait Assessment Gait Gait Assistance Required: Contact Guard Assist 1 Person Assist Distance (Feet) (feet) 50 Assistive Devices Assistive Device Gait Belt Front Wheeled Walker Gait Deviations General Gait Pattern Antalgic Decreased Stride Length Decreased Feet Clearance Factors Limiting Gait Function Factors Limiting Gait Function Decreased Activity Tolerance Decreased Strength Pain Poor Balance Poor Safety Awareness Comments Gait Comments Pt fatigues quickly with gait. M5 PT-IP Objective Assessments Start: 12/13/17 12:10 Freq: NEEDED Status: Active Protocol: Document 12/13/17 12:11 AB (Rec: 12/13/17 12:21 AB [id number]) Orientation Orientation/Cognition Level of Alertness Alert Orientation Name Place Situation Safety Awareness Decreased Safety Awareness Memory Description Short Term Impaired Correction Impaired Gross Range of Motion Lower Extremity ROM Assessment Bilaterally Impaired Impairments R knee flexion contracture of ~ 30 deg Strength Lower Extremity Strength Assessment Bilaterally Impaired Comments Strength Comments RLE 3+/5 LLE4-/5 M6 PT-IP Treatment Start: 12/13/17 12:10 Freq: NEEDED Status: Active Protocol: Document 12/14/17 13:51 GGD (Rec: 12/14/17 14:05 GGD [email or web address]) Physical Therapy Treatment Exercises Exercises Ankle Pumps Quad Sets Heel Slides Straight Leg Raises M7 PT-IP Assessment and Plan Start: 12/13/17 12:10 Freq: NEEDED Status: Active Protocol: Document 12/14/17 13:51 GGD (Rec: 12/14/17 14:05 GGD [email or web address]) PT Summary Assessment and Plan Summary Assessment Summary Pt need cues for safety with mobility. He need cues for gait Frequency of Treatment Frequency Of Treatment Twice a Day Treatment Plan Other Recommendations and Next Treatment bed mobility, gait and knee Focus rom Recommendations To Nursing Amount of Assist Needed 1 Person Assist Discharge Recommendations PT Discharge Recommendations SNF Rehab
--- NOTE | 2017-12-14 14:47 | CM.DANOTE ---
DCP Assessment: Pt is an 81 yo male, resident of [place]. Pt under obs for severe gout pain and weakness. Pt's PCP is Dr Espino; Insurance is Medicare/[employer]. Reviewed chart, spoke w/Dr Espino, spoke w/UR RN Mikey, pt remains observation status and PT/OT recommending SNF. Met w/pt, his Twyla and his dtr (lives in [place], spouse in [place], their 2 yo son here also). Pt/spouse have 3 adult children, one son lives locally but is unable to provide any assistance d/t demands from his job. Twyla teary throughout our conversation as she describes pt's decline since June and pt's multiple falls at home. Pt awake during our conversation but does not care to be a part of it; watches TV. Twyla reviews her concerns re pt's (inpatient) admission in June: that PT did not complete a thorough assessment of pt's functional limitations. PT recommended pt DC home in June; notes indicate pt was walking 200 feet w/SBA on Jun 28 2017. Pt went home w/HH. Twyla complains of pt's sporadic and extensive weakness sec to his severe and refractory gout. He has fallen multiple times at home and Twyla has had to call family or friends to come and assist her get pt up from the floor. Pt has h/o IV infusion for his gout/polymyalgia. Twyla does not want to take pt home and states many times that pt is not safe to come home at this time. Twyla also relays concern about pt's declining cognitive status. Pt w/notable confusion at home re where he is. Pt also has become increasingly agitated and negative over slight changes in his environment. Twyla would like pt to DC to a SNF before coming home, in hopes pt will make remarkable progress w/skilled PT/OT at SNF. Reviewed obs status vs inpt briefly in relation to SNF and DC planning options. Twyla quite upset that pt is not an inpt and requested addtl information from UR RN about this determination. Mikey, BOOM RN, to f/u. Twyla mentioned she might be able to fund a private cost SNF stay with some creative financing. Following closely. This DIRECTOR PHARMACOLOGY will need to review DCP options again w/spouse Monday. MARYAN Ahmadi
[2017-12-14] MEDS: METOPROLOL ER 25 MG TABLET PO (21:50)
[2017-12-14] MEDS: SODIUM CHLORIDE 0.9% FLUSH 10 ML IV (21:51)
--- NOTE | 2017-12-14 22:18 | PC.NURSE ---
[place] note: Dr. Espino notified regarding BP 190/84, patient at rest, denied pain. No headache, dizziness, or blurry vision. New order obtained, resume home medication Metopropol 25 mg PO. Patient ambulated in hallway with steady gait noted, using front wheel walker.
[2017-12-15] VITALS (13 sets, daily range): BP systolic 148–195; BP diastolic 59–95; PULSE 48–75; RESP 16–20; TEMP 36.4–37; O2SAT 96–99
[2017-12-15] MEDS: OXYCODONE IR 10 MG TABLET PO (00:08)
--- NOTE | 2017-12-15 01:10 | PC.NURSE ---
Pt is alert and oriented, forgetful. he has elevated BP 190's. Pt received metoprolol PO during olga lidia shift and oxycodone at midnight, but BP still around 190's. he is asymptomatic. his pain is 3-4/10. pt is comfortable laying in bed and wanting to sleep. pulse 64bpm. notified MD. orders were to monitor pt and see how he is in the morning since pulse is 64.
[2017-12-15] MEDS: DEXTROSE 5%-0.9% NS 1,000 ML 125 ML IV ×3 (01:25→17:45)
[2017-12-15] MEDS: PANTOPRAZOLE 40 MG VIAL IV ×2 (03:50→16:36)
[2017-12-15 05:20] LABS: Hematocrit 27.2 % (41-53); Hemoglobin 8.9 g/dL (13.5-17.5); Mean Corpuscular HGB Conc 32.7 % (30-36); Mean Corpuscular Hemoglobin 28.3 PG (26-34); Mean Corpuscular Volume 86.4 fL (80-100); Platelet Count 216 X10^3/uL (150-400); Red Blood Cell Count 3.15 X10^6/uL (4.5-5.9); Red Cell Distribution Width 17.6 % (11.6-14.8); White Blood Cell Count 11.1 X10^3/uL (4.5-11.0)
[2017-12-15 05:22] LABS: Alanine Aminotransferase 43 IU/L (21-72); Albumin 2.5 g/dL (3.5-5.0); Albumin Globulin Ratio 0.8 (1.0-2.8); Alkaline Phosphatase 64 U/L (38-126); Aspartate Aminotransferase 20 IU/L (17-59); Bilirubin Total 0.2 mg/dL (0.2-1.3); Blood Urea Nitrogen 45 mg/dL (9-20); Calcium 8.6 mg/dL (8.4-10.2); Carbon Dioxide 19 mmol/L (22-32); Chloride 111 mmol/L (98-107); Globulin 3.1 g/dL (1.7-4.1); Glucose 144 mg/dL (80-110); HEMOLYSIS < 15 (0-50); Potassium 4.5 mmol/L (3.4-5.1); Sodium 139 mmol/L (137-145); Total Protein 5.6 g/dL (6.3-8.2)
[2017-12-15 05:23] LABS: Add Manual Diff / Slide Review YES
[2017-12-15 05:56] LABS: Anisocytosis 2+
--- NOTE | 2017-12-15 08:08 | PT.IPTN ---
Current Diagnoses Anemia, unspecified (12/12/17) Hyperlipidemia, unspecified (12/12/17) Major depressive disorder, single episode, unspecified (12/12/17) Atherosclerotic heart disease of [place] coronary artery without angina pectoris (12/12/17) Chronic gout, unspecified, with tophus (tophi) (12/12/17) Pain in unspecified joint (12/12/17) Polymyalgia rheumatica (12/12/17) Myalgia (12/12/17) Chronic kidney disease, stage 3 (moderate) (12/12/17) Cardiac murmur, unspecified (12/12/17) Physical Therapy Treatment Note M2 PT-IP Current Condition Start: 12/13/17 12:10 Freq: NEEDED Status: Active Protocol: Document 12/14/17 13:51 GGD (Rec: 12/14/17 14:05 GGD [email or web address]) Physical Therapy Current Condition Current Condition Evaluation Date 12/13/17 Treatment Diagnosis R knee pain Onset Date 12/12/17 M3 PT-IP Subjective Start: 12/13/17 12:10 Freq: NEEDED Status: Active Protocol: Document 12/15/17 08:01 AMB (Rec: 12/15/17 08:07 AMB [email or web address]) Subjective Physical Therapy Visit Type Type Treatment Note Visit Start Time 07:40 Visit Stop Time 08:00 Total Visit Minutes 20 Number of CANCER REGISTRY MANAGER Visits 0 Physical Therapy Visit Comments Patient Comments Pt in bed, present in the room. Therapy Pain Assessment Pain When Pain Assessed At Rest Pain Present Pain Present Pain Reported M4 PT-IP Mobility and Gait Start: 12/13/17 12:10 Freq: NEEDED Status: Active Protocol: Document 12/15/17 08:01 AMB (Rec: 12/15/17 08:07 AMB [email or web address]) PT-Bed Mobility Assessment Supine to Sit Supine to Sit Standby Assistance Bedrails Sit to Supine Sit to Supine Standby Assistance PT-Transfer Assessment Sit to and From Stand Sit to and from Stand Standby Assistance Use of Upper Extremities Equipment Transfer Assistive Device Front Wheeled Walker Orthotic/Prosthetic Devices or Brace: No Transfers Transfer Destination Chair Comments Mobility Comments Pt uses other LE to lift right LE. Gait Assessment Gait Gait Assistance Required: Contact Guard Assist 1 Person Assist Distance (Feet) (feet) 75 Assistive Devices Assistive Device Gait Belt Front Wheeled Walker Gait Deviations General Gait Pattern Antalgic Decreased Stride Length Decreased Feet Clearance Factors Limiting Gait Function Factors Limiting Gait Function Decreased Activity Tolerance Decreased Strength Pain Poor Balance Poor Safety Awareness Comments Gait Comments Antalgic gait decreased once patient was walking for the first 20 feet, but then increased the last 20 feet. M5 PT-IP Objective Assessments Start: 12/13/17 12:10 Freq: NEEDED Status: Active Protocol: Document 12/13/17 12:11 AB (Rec: 12/13/17 12:21 AB [id number]) Orientation Orientation/Cognition Level of Alertness Alert Orientation Name Place Situation Safety Awareness Decreased Safety Awareness Memory Description Short Term Impaired Detention Impaired Gross Range of Motion Lower Extremity ROM Assessment Bilaterally Impaired Impairments R knee flexion contracture of ~ 30 deg Strength Lower Extremity Strength Assessment Bilaterally Impaired Comments Strength Comments RLE 3+/5 LLE4-/5 M6 PT-IP Treatment Start: 12/13/17 12:10 Freq: NEEDED Status: Active Protocol: Document 12/14/17 13:51 GGD (Rec: 12/14/17 14:05 GGD [email or web address]) Physical Therapy Treatment Exercises Exercises Ankle Pumps Quad Sets Heel Slides Straight Leg Raises M7 PT-IP Assessment and Plan Start: 12/13/17 12:10 Freq: NEEDED Status: Active Protocol: Document 12/15/17 08:01 AMB (Rec: 12/15/17 08:07 AMB [email or web address]) PT Summary Assessment and Plan Summary Assessment Summary Blood pressure increased this morning, nursing aware. 194/ 83 after walking, 179/98 at 6am at rest per nursing. Frequency of Treatment Frequency Of Treatment Twice a Day Recommendations To Nursing Amount of Assist Needed 1 Person Assist Discharge Recommendations PT Discharge Recommendations SNF Rehab
--- NOTE | 2017-12-15 08:30 | P.PN_ITS ---
Subjective Date Patient Seen: 12/14/17 Time Patient Seen: 08:00 Interval history: Patient with severe inflammatory gouty arthropathy renal failure superimposed I think probably a component of polymyalgia rheumatica with sed rate to 133 and had been and so a weakened and debilitated by Disease unable to move stand secondary to severe pain. Had been falling at home and knee x-ray obtained shows no clear evidence of fracture. Patient seems a little more clear mind this morning and has had a assisted ambulation around in the ward for short distance. Patient clearly so debilitated and weakened he is going to need rehabilitation after this admission. High-dose steroids are affecting his inflammatory gout but there also affecting blood sugars and and blood pressure and certainly dangers for his kidney function and cognitive function. Work on trying to an improved blood pressure control watch blood sugars closely and try and improve his strength with rehab Exam Vital Signs (past 8 hours): Vital Signs - 8 hr 3 12/15/17 00:40 12/15/17 00:50 12/15/17 04:00 Temperature 98.3 F Pulse Rate 64 50 L Respiratory Rate 16 Blood Pressure 194/70 H 195/80 H 191/70 H Pulse Oximetry 97 Pulse Oximetry 97 Oxygen Delivery Method Room Air Oxygen Flow Rate 0 Narrative Exam Narrative: Patient sits in bed seems alert but I think is not following extremely well. PRLA a EOMs intact Neck without mass Lungs clear to auscultation and percussion The CV is shows regular rate and rhythm with occasional extrasystole but no murmur S3 and no edema except Abdomen nontender no hepatosplenomegaly or mass Neuro shows symmetrical sensory and motor function some numbness in feet but minimal Back without significant lesion Skin with inflammatory areas around presumed gouty areas Objective Labs Result Diagrams: 12/15/17 04:54 12/15/17 04:54 Labs: Laboratory Results - last 24 hr 12/15/17 12/15/17 04:54 04:54 WBC 11.1 H RBC 3.15 L Hgb 8.9 L Hct 27.2 L MCV 86.4 MCH 28.3 MCHC 32.7 RDW 17.6 H Plt Count 216 Neut % (Auto) Not Reportable Lymph % (Auto) Not Reportable [place] % (Auto) Not Reportable Eos % (Auto) Not Reportable Baso % (Auto) Not Reportable Seg Neutrophils % 79.0 H Band Neutrophils % 3.0 Lymphocytes % (Manual) 14.0 L Monocytes % (Manual) 3.0 Myelocytes % 1.0 H RBC Morphology Not Reportable Anisocytosis 2+ H Sodium 139 Potassium 4.5 Chloride 111 H Carbon Dioxide 19 L BUN 45 H Creatinine 1.50 H Estimated GFR 45.0 L BUN/Creatinine Ratio 30.0 H Glucose 144 H Calcium 8.6 Total Bilirubin 0.2 AST 20 ALT 43 Alkaline Phosphatase 64 Total Protein 5.6 L Albumin 2.5 L Globulin 3.1 Albumin/Globulin Ratio 0.8 L Assessment & Plan Plan: Assessment/Plan Narrative: Assessment 1. Patient with severe weakness and debility secondary to poorly defined inflammatory process. Some of this is gouty and a patient's severe refractory back out but uric acid levels currently normal and tophi are severe and patient may also have a component of polymyalgia rheumatica. Unclear which of these is the primary culprit at this point were treating with anti- inflammatories levels of steroids aggressively. Assessment 2. Hypertension so this is by I think steroid related some at at this point is having been off of some of his medicines at the time of admission. Some of this is probably pain related have re-initiated beta- blockers will add amlodipine today and low-dose trying to get better blood pressure control to preserve renal function and cognitive function. Assessment 3 renal failure chronic with acute superimposed on a little bit persistent at this point will continue hydration Assessment for anemia no clear bleeding source but merits further evaluation certainly a contributor to weakness and could be based on his renal function with the decreased erythropoietin levels Assessment 5 history of atherosclerotic cardiovascular disease stable at this time with appropriate medications continued Quality VTE Deep Vein Thrombosis/Pulmonary Embolism Present on Admission: No
--- NOTE | 2017-12-15 08:33 | PM.CN ---
History of Present Illness Reason for consult: UR Physicain Advisor Consult Narrative: 81-year-old male with severe worsening gout unable to ambulate admitted under observation status for treatment and assessment. Patient with chronic renal failure with mild worsening of creatinine now back to baseline and mild chronic anemia. Patient being treated with steroids and colchicine for the gout also physical therapy. Patient does not appear to meet criteria for inpatient admission would recommend continued observation status. Will continue to monitor his medical progress. If the clinical condition changes he may be appropriate for inpatient at some point. [facility] Family History: Reviewed 12/12/17 by Andrew Alexandra MD Social History household members: spouse Smoking Status: Never smoker alcohol intake: current Meds Home Medications Medication Instructions Recorded Confirmed Type cholecalciferol (vitamin D3) 5,000 unit PO DAILY #0 06/23/17 12/13/17 History [Vitamin D3] atorvastatin 20 mg PO DAILY 12/12/17 12/13/17 History clopidogrel 75 mg PO DAILY 12/12/17 12/13/17 History colchicine 0.6 mg PO DIRECTED 12/12/17 12/13/17 History febuxostat [Uloric] 40 mg PO DAILY 12/12/17 12/13/17 History prednisone 1 dose PO DIRECTED 12/12/17 12/13/17 History probenecid 500 mg PO DAILY 12/12/17 12/13/17 History sertraline 100 mg PO DAILY 12/12/17 12/13/17 History pantoprazole [Protonix] 40 mg PO QAM 12/13/17 12/13/17 History metoprolol succinate 25 mg PO QAM 12/14/17 12/15/17 History Allergies Allergy/AdvReac Type Severity Reaction Status Date / Time No Known Drug Allergies Allergy Verified 12/12/17 21:16 Exam Vital Signs (past 8 hours): Vital Signs - 8 hr 12/15/17 00:40 12/15/17 00:50 12/15/17 04:00 Temperature 98.3 F Pulse Rate 64 50 L Respiratory Rate 16 Blood Pressure 194/70 H 195/80 H 191/70 H Pulse Oximetry 97 Pulse Oximetry 97 Oxygen Delivery Method Room Air Oxygen Flow Rate 0 Objective Labs Result Diagrams: 12/15/17 04:54 12/15/17 04:54 Labs: Laboratory Results - last 24 hr 12/15/17 12/15/17 04:54 04:54 WBC 11.1 H RBC 3.15 L Hgb 8.9 L Hct 27.2 L MCV 86.4 MCH 28.3 MCHC 32.7 RDW 17.6 H Plt Count 216 Neut % (Auto) Not Reportable Lymph % (Auto) Not Reportable [place] % (Auto) Not Reportable Eos % (Auto) Not Reportable Baso % (Auto) Not Reportable Seg Neutrophils % 79.0 H Band Neutrophils % 3.0 Lymphocytes % (Manual) 14.0 L Monocytes % (Manual) 3.0 Myelocytes % 1.0 H RBC Morphology Not Reportable Anisocytosis 2+ H Sodium 139 Potassium 4.5 Chloride 111 H Carbon Dioxide 19 L BUN 45 H Creatinine 1.50 H Estimated GFR 45.0 L BUN/Creatinine Ratio 30.0 H Glucose 144 H Calcium 8.6 Total Bilirubin 0.2 AST 20 ALT 43 Alkaline Phosphatase 64 Total Protein 5.6 L Albumin 2.5 L Globulin 3.1 Albumin/Globulin Ratio 0.8 L
--- NOTE | 2017-12-15 08:38 | P.PN_ITS ---
Subjective Date Patient Seen: 12/15/17 Time Patient Seen: 08:30 Interval history: Patient continues to be weak and in great deal of pain. Diffuse gouty arthropathy and gouty tophi. Patient on steroids and response to initial sed rate of 133 and the setting at this time. Patient also has renal failure chronic with acute superimposed and creatinine is a little bit better today. Patient's hypertension spiked into the 190s systolic and we reinstituted beta-gabby that for some reason had been admitted from home it from his admission orders and patient pressure still high will initiate treatment with amlodipine. 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 Exam Vital Signs (past 8 hours): Vital Signs - 8 hr 3 12/15/17 00:40 12/15/17 00:50 12/15/17 04:00 Temperature 98.3 F Pulse Rate 64 50 L Respiratory Rate 16 Blood Pressure 194/70 H 195/80 H 191/70 H Pulse Oximetry 97 Pulse Oximetry 97 Oxygen Delivery Method Room Air Oxygen Flow Rate 0 Narrative Exam Narrative: Patient generally confused but agreeable answering questions with some lack of clarity PERRLA and EOMs are intact Lungs are clear to auscultation and percussion CV is shows regular rate and rhythm with occasional extra beat no S3 no significant edema edema Abdomen nontender patient is eating well no massive pedal splenomegaly rebound or guarding shows continued incontinence Back shows no signs of skin breakdown pressure lesions no CVA area pain Neuro shows patient to be confused but overall agreeable not able answer in- depth questions about what may have been going on prior to his admission but Extremities patient has a number of inflammatory reddened areas with gouty tophi in all extremities Objective Labs Result Diagrams: 12/15/17 04:54 12/15/17 04:54 Labs: Laboratory Results - last 24 hr 12/15/17 12/15/17 04:54 04:54 WBC 11.1 H RBC 3.15 L Hgb 8.9 L Hct 27.2 L MCV 86.4 MCH 28.3 MCHC 32.7 RDW 17.6 H Plt Count 216 Neut % (Auto) Not Reportable Lymph % (Auto) Not Reportable Brown % (Auto) Not Reportable Eos % (Auto) Not Reportable Baso % (Auto) Not Reportable Seg Neutrophils % 79.0 H Band Neutrophils % 3.0 Lymphocytes % (Manual) 14.0 L Monocytes % (Manual) 3.0 Myelocytes % 1.0 H RBC Morphology Not Reportable Anisocytosis 2+ H Sodium 139 Potassium 4.5 Chloride 111 H Carbon Dioxide 19 L BUN 45 H Creatinine 1.50 H Estimated GFR 45.0 L BUN/Creatinine Ratio 30.0 H Glucose 144 H Calcium 8.6 Total Bilirubin 0.2 AST 20 ALT 43 Alkaline Phosphatase 64 Total Protein 5.6 L Albumin 2.5 L Globulin 3.1 Albumin/Globulin Ratio 0.8 L Assessment & Plan Plan: Assessment/Plan Narrative: Assessment 1. Severe inflammatory condition which seems to involve very severe gout with diffuse gouty tophi and diffuse inflammatory gouty arthritis but also with a component of something that seems very much like polymyalgia rheumatica. He is responding to high-dose steroids at this point. However these are worse aggravating with sugar issues blood pressure issues fluid retention issues so a complicated picture. Assessment to patient's hypertension significantly exacerbated over night with systolic pressures into the 190. Patient without chest pain shortness of breath dizziness neurologic change or headache. Have reinstituted his beta- gabby as of yesterday but no improvement yet this morning will continue that as long as his heart rate is not too low. Will add low-dose amlodipine of 5 mg to his management at this point and see how about pressures go through the day today. Assessment 3. Chronic renal failure with acute renal failure superimposed little bit better today. Hydration seems to be helping that and possibly treating with steroids may be helping as well. I will continue with current regimen regimen for those Assessment 4. Anemia patient's blood count has dropped a little bit over the last 24 hr. No evidence of bleeding and I suspect it is fluid dilution. Another component for his anemia could be his chronic renal failure with a decreased erythropoietin production 5. Depression patient does seem stable at this point will continue with current regimen Assessment 6. I think there is a component of the dimension after talking with family is having very difficult time with clear D and functioning at home for getting safety issues that are important number of falls and progressively worsening ability to participate in his own care Quality VTE Deep Vein Thrombosis/Pulmonary Embolism Present on Admission: No
--- NOTE | 2017-12-15 08:40 | P.CONS_ITS ---
History of Present Illness Reason for consult: UR Physicain Advisor Consult Narrative: 81-year-old male with severe worsening gout unable to ambulate admitted under observation status for treatment and assessment. Patient with chronic renal failure with mild worsening of creatinine now back to baseline and mild chronic anemia. Patient being treated with steroids and colchicine for the gout also physical therapy. Patient does not appear to meet criteria for inpatient admission would recommend continued observation status. Will continue to monitor his medical progress. If the clinical condition changes he may be appropriate for inpatient at some point. [facility] Family History: Reviewed 12/12/17 by Andrew Alexandra MD Social History household members: spouse Smoking Status: Never smoker alcohol intake: current Meds Home Medications Medication Instructions Recorded Confirmed Type cholecalciferol (vitamin D3) 5,000 unit PO DAILY #0 06/23/17 12/13/17 History [Vitamin D3] atorvastatin 20 mg PO DAILY 12/12/17 12/13/17 History clopidogrel 75 mg PO DAILY 12/12/17 12/13/17 History colchicine 0.6 mg PO DIRECTED 12/12/17 12/13/17 History febuxostat [Uloric] 40 mg PO DAILY 12/12/17 12/13/17 History prednisone 1 dose PO DIRECTED 12/12/17 12/13/17 History probenecid 500 mg PO DAILY 12/12/17 12/13/17 History sertraline 100 mg PO DAILY 12/12/17 12/13/17 History pantoprazole [Protonix] 40 mg PO QAM 12/13/17 12/13/17 History metoprolol succinate 25 mg PO QAM 12/14/17 12/15/17 History Allergies Allergy/AdvReac Type Severity Reaction Status Date / Time No Known Drug Allergies Allergy Verified 12/12/17 21:16 Exam Vital Signs (past 8 hours): Vital Signs - 8 hr 3 12/15/17 00:40 12/15/17 00:50 12/15/17 04:00 Temperature 98.3 F Pulse Rate 64 50 L Respiratory Rate 16 Blood Pressure 194/70 H 195/80 H 191/70 H Pulse Oximetry 97 Pulse Oximetry 97 Oxygen Delivery Method Room Air Oxygen Flow Rate 0 Objective Labs Result Diagrams: 12/15/17 04:54 12/15/17 04:54 Labs: Laboratory Results - last 24 hr 12/15/17 12/15/17 04:54 04:54 WBC 11.1 H RBC 3.15 L Hgb 8.9 L Hct 27.2 L MCV 86.4 MCH 28.3 MCHC 32.7 RDW 17.6 H Plt Count 216 Neut % (Auto) Not Reportable Lymph % (Auto) Not Reportable [place] % (Auto) Not Reportable Eos % (Auto) Not Reportable Baso % (Auto) Not Reportable Seg Neutrophils % 79.0 H Band Neutrophils % 3.0 Lymphocytes % (Manual) 14.0 L Monocytes % (Manual) 3.0 Myelocytes % 1.0 H RBC Morphology Not Reportable Anisocytosis 2+ H Sodium 139 Potassium 4.5 Chloride 111 H Carbon Dioxide 19 L BUN 45 H Creatinine 1.50 H Estimated GFR 45.0 L BUN/Creatinine Ratio 30.0 H Glucose 144 H Calcium 8.6 Total Bilirubin 0.2 AST 20 ALT 43 Alkaline Phosphatase 64 Total Protein 5.6 L Albumin 2.5 L Globulin 3.1 Albumin/Globulin Ratio 0.8 L
[2017-12-15] MEDS: COLCHICINE 0.6 MG TABLET PO ×2 (09:06→20:24)
[2017-12-15] MEDS: ENOXAPARIN 40 MG/0.4 ML SYRINGE SUBCUT (09:06)
[2017-12-15] MEDS: AMLODIPINE 5 MG TABLET PO (09:06)
[2017-12-15] MEDS: predniSONE 20 MG TABLET 60 MG PO (09:08)
[2017-12-15] MEDS: SERTRALINE 50 MG TABLET 100 MG PO (09:09)
[2017-12-15] MEDS: FEBUXOSTAT PO (09:09)
[2017-12-15] MEDS: METOPROLOL ER 25 MG TABLET PO (09:16)
[2017-12-15] MEDS: CLOPIDOGREL 75 MG TABLET PO (11:49)
--- NOTE | 2017-12-15 12:31 | OT.IP.TRT ---
Current Diagnoses Anemia, unspecified (12/12/17) Hyperlipidemia, unspecified (12/12/17) Major depressive disorder, single episode, unspecified (12/12/17) Atherosclerotic heart disease of false pass coronary artery without angina pectoris (12/12/17) Chronic gout, unspecified, with tophus (tophi) (12/12/17) Pain in unspecified joint (12/12/17) Polymyalgia rheumatica (12/12/17) Myalgia (12/12/17) Chronic kidney disease, stage 3 (moderate) (12/12/17) Cardiac murmur, unspecified (12/12/17) Occupational Therapy Treatment Note M2 OT-IP Current Condition Start: 12/13/17 19:26 Freq: Status: Active Protocol: Document 12/13/17 19:26 PJM (Rec: 12/13/17 19:41 PJM [id number]) Occupational Therapy Current Condition Current Condition Evaluation Date 12/13/17 Treatment Diagnosis decreased self care and functional mobility Diagnosis Onset Date 12/12/17 M3 OT- IP Subjective and Pain Start: 12/13/17 19:26 Freq: Status: Active Protocol: Document 12/15/17 11:45 [facility] (Rec: 12/15/17 12:30 [facility] [id number]) OT- Subjective Occupational Therapy Visit Type Type Treatment Note Visit Start Time 11:45 Visit Stop Time 12:10 Total Visit Minutes 25 Occupational Therapy Visit Comments Patient Comments Pt wanting to go to the bathroom. OT Pain Assessment Pain When Pain Assessed At Rest Pain Present Pain Present Pain Reported Location Right Knee Intensity 5 Scale Used Numeric (1 - 10) Description Chronic Pain Behaviors Facial Grimacing Management Techniques Timing of Activity with Medications M4 OT- IP ADL's Start: 12/13/17 19:26 Freq: Status: Active Protocol: Document 12/15/17 11:45 [facility] (Rec: 12/15/17 12:30 [facility] [id number]) OT ADL-Toileting General Evaluation Toileting Ability Moderate Assistance Areas Needing Assistance Manage Clothing Devices Toileting Assistive Devices Grab Bars Comments OT Toileting Comments MOD for balance and clothing management , pt very unsteady on his feet when not holding onto objects. M5 OT- IP IADL's Start: 12/13/17 19:26 Freq: Status: Active Protocol: Document 12/13/17 19:26 PJM (Rec: 12/13/17 19:41 PJM [id number]) OT-Instrumental Activities of Daily Living Deficits IADL Deficits Identified Deficits Home Safety Awareness Awareness of Need for Assistance at Home Good Awareness Medication Management Medication Management Caregiver Provides Supervision Money Management Money Management Caregiver Provides Supervision Meal Preparation Meal Preparation Caregiver Provides Assist Radiology Receptionist Radiology Receptionist Caregiver Provides Assist Driving Driving Caregiver Provides Assist M6 OT- IP Functional Cognition Start: 12/13/17 19:26 Freq: Status: Active Protocol: Document 12/15/17 11:45 [facility] (Rec: 12/15/17 12:30 [facility] [id number]) Cognitive Factors Limiting Selfcare Function Cognitive Ability Level of Alertness Alert Patient Orientation Name Attention Span Ability Capable of Focused Attention Ability to Follow Commands Able to Follow One Step Commands Memory Description Short Term Impaired Breeder Hen Service Technician Impaired Safety Awareness Underestimates Need for Assistance Problem Solving Ability Needs Assist to Identify Solutions Cognitive Comments Cognitive Assessment Comments Pt still needing vc for safety , forgot still holding toilet paper which he had just cleaned himself. M7 OT- IP Mobility and Balance Start: 12/13/17 19:26 Freq: Status: Active Protocol: Document 12/15/17 11:45 [facility] (Rec: 12/15/17 12:30 [facility] [id number]) OT- Bed Mobility Assessment Rolling Type of Rolling Roll to Left Level of Assistance Standby Assistance Bedrails OT-Transfer Assessment Sit to and From Stand Sit to and from Stand Minimal Assistance Moderate Assistance Transfers Transfer Ability Standby Assistance Technique Transfer Destination Chair Transfer Technique Stand Step Pivot Devices Transfer Assistive Devices Gait Belt Front Wheeled Walker M8 OT- IP Objective Assessments Start: 12/13/17 19:26 Freq: Status: Active Protocol: Document 12/13/17 19:26 PJ (Rec: 12/13/17 19:41 PJM [id number]) OT Gross Range of Motion Upper Extremity Range of Motion Assessment Left Impaired ROM Impairments B shoulder scaption limited to about 110 degrees by stiffness. OT Strength Upper Extremity Strength Assessment Bilaterally Impaired Shoulder 4-/5 Elbow 4/5 Hand 4-/5 Comments Strength Comments generally decreased BUE strength, no focal weakness noted OT- Coordination Assessment Comments Coordination Comments appears WFL BUE, but with stiffness in IP's OT-Muscle Tone Assessment Muscle Tone WNL Yes OT Sensation Assessment Comments Summary Comments Pt denies sensory deficits in BUE's Edema Edema Present Edema Comments R knee and L elbow swollen M9 OT- IP Assessment and Plan Start: 12/13/17 19:26 Freq: Status: Active Protocol: Document 12/15/17 11:45 [facility] (Rec: 12/15/17 12:30 [facility] [id number]) OT Summary Assessment and Plan Potential Analytic Complexity at Evaluation Low Summary OT Impairments Pain Strength Balance Functional Mobility Dressing Toileting Bathing Toilet Transfers Shower Transfers Progress Towards Goals Slow Progress due to Pain Slow Progress due to Activity Tolerance Slow Progress due to Cognition Goals Days to Meet Goals 3 Frequency of Treatment Frequency Of Treatment Once a Day Treatment Plan OT Treatment Plan ADL Training Therapeutic Exercises Patient/Family Education Discharge Planning Other Treatment Recommendations and Next Attmpt to shower pt if Treatment Focus appropriate. Discharge Recommendations OT Discharge Recommendations SNF Rehab
[2017-12-15] MEDS: MORPHINE PCA 30 MG/30 ML PCA.VIAL IV ×2 (14:21→21:32)
[2017-12-15] MEDS: methylPREDNISolone 125 MG/2 ML VIAL 60 MG IV ×2 (14:28→21:23)
--- NOTE | 2017-12-15 15:49 | PC.NURSE ---
Addendum entered by Octavio Saeed R.N. 12/15/17 19:07: Had a long conversation with (Megan) in ward concerning recent changes in patients behavior. reports these concerns have not yet been discussed fully with Dr. Espino and this nurse did encourage that to happen. states patient has been increasingly forgetful, aggitated about little things such as things dropping out of his hand or items being on the floor. Patient also has been at moments thinking of things and having inappropriate responses to thoughts. explains one time patient was thinking of a famous astronaut and patient began to get very tearful and remorseful about person and no longer being alive. Patient the other evening also believed to be in a hotel when he was in his own room. is concerns that these new cognitive changes may be related to some early onset of dementia. Discussed following up with Dr. Espino regarding these concerns and perhaps a consult with a neuro and a CT scan may be helpful for patient to further explore what the underlining cause of this change may be if any. asked this nurse If I would be willing to make mention of this conversation that was exchanged, thus prompting this note entry. Also discussed w/ possibility of patient being able to d/c to SNIF after he has had 3 midnight stays to be able to rehab at facility and cont. treatment if need be. is very happy and appreciative w/ this plan and encouraging of d/c to SN. Original Note: Addendum entered by Octavio Saeed R.N. 12/15/17 16:15: Patient has returned back to bed from walking in halls w/ PT. Per PT patient did better today then prev. days and patient reports he feels good w/ his walking. Patient is A&O x3 but is known to be forgetful, impulsive and a bit concussed at times. Patient has yet to have any of these sxs for olga lidia shift nurse. IVF infusing per MAR orders, BUFFING WHEEL INSPECTOR in place per MAR orders and patient has used 1mg since beginning of olga lidia shift. RLE (Knee and foot) appear to be slightly edematous but is cool to the touch w/ no erythema. Discussed Hx of Gout w/ patient, discussed if he was aware of the Gout diet. Asked if he would like more information on this said diet, patient states he believes his was already given information on this. If is seen on olga lidia shift, this nurse will discuss this w/ . call light w/in reach, bed in low pos. alarm is active. Original Note: PT in room w/ patient working. Nurse will return to do shift asses. after PT has finished.
--- NOTE | 2017-12-15 16:14 | CM.DPC ---
DCP Cont: Spoke w/Dr Reynolds and Dr Espino this morning. Pt qualifies for inpt status and has been changed as of today 12/15/17. This PANTRY GOODS MAKER was unable to contact spouse Twyla today to review DCP options. Did not see spouse or dtr at bedside today. Following closely. Pt will need SNF stay and has been made an inpt as of today. Pt/spouse agree SNF will be needed, and now SNF choice needs to be confirmed. [facility]
--- NOTE | 2017-12-15 16:34 | PT.IPTN ---
Current Diagnoses Anemia, unspecified (12/12/17) Hyperlipidemia, unspecified (12/12/17) Major depressive disorder, single episode, unspecified (12/12/17) Atherosclerotic heart disease of [place]ag[place] coronary artery without angina pectoris (12/12/17) Chronic gout, unspecified, with tophus (tophi) (12/12/17) Pain in unspecified joint (12/12/17) Polymyalgia rheumatica (12/12/17) Myalgia (12/12/17) Chronic kidney disease, stage 3 (moderate) (12/12/17) Cardiac murmur, unspecified (12/12/17) Physical Therapy Treatment Note M2 PT-IP Current Condition Start: 12/13/17 12:10 Freq: NEEDED Status: Active Protocol: Document 12/15/17 16:22 TMS (Rec: 12/15/17 16:34 TMS [id number]) Physical Therapy Current Condition Current Condition Evaluation Date 12/13/17 Treatment Diagnosis R knee pain Onset Date 12/12/17 M3 PT-IP Subjective Start: 12/13/17 12:10 Freq: NEEDED Status: Active Protocol: Document 12/15/17 16:22 TMS (Rec: 12/15/17 16:34 TMS [id number]) Subjective Physical Therapy Visit Type Type Treatment Note Visit Start Time 15:45 Visit Stop Time 16:10 Total Visit Minutes 25 Number of CAGER OPERATOR Visits 1 Physical Therapy Visit Comments Patient Comments Son present initially, pt. willing to walk. Therapy Pain Assessment Pain When Pain Assessed At Rest Pain Present Pain Present Pain Reported M4 PT-IP Mobility and Gait Start: 12/13/17 12:10 Freq: NEEDED Status: Active Protocol: Document 12/15/17 16:22 TMS (Rec: 12/15/17 16:34 TMS [id number]) PT-Bed Mobility Assessment Supine to Sit Supine to Sit Standby Assistance Bedrails Sit to Supine Sit to Supine Standby Assistance Scooting Scooting to Edge of Bed Standby Assistance PT-Transfer Assessment Sit to and From Stand Sit to and from Stand Standby Assistance Use of Upper Extremities Equipment Transfer Assistive Device Front Wheeled Walker Orthotic/Prosthetic Devices or Brace: No Comments Mobility Comments Pt uses left LE to lift right LE into bed. Pt. stood at bedside with FWW/CGA to use urinal. Gait Assessment Gait Gait Assistance Required: Contact Guard Assist 1 Person Assist Distance (Feet) (feet) 125 Able to Maintain Weight Bearing Status Yes During Gait Assistive Devices Assistive Device Gait Belt Front Wheeled Walker Gait Deviations General Gait Pattern Antalgic Decreased Stride Length Decreased Feet Clearance Factors Limiting Gait Function Factors Limiting Gait Function Decreased Activity Tolerance Decreased Strength Pain Poor Balance Poor Safety Awareness Comments Gait Comments Pt. needed cues for gait sequencing. Initially unable to do step through gait pattern, needs cues to slow down with gait. M5 PT-IP Objective Assessments Start: 12/13/17 12:10 Freq: NEEDED Status: Active Protocol: Document 12/13/17 12:11 AB (Rec: 12/13/17 12:21 AB [id number]) Orientation Orientation/Cognition Level of Alertness Alert Orientation Name Place Situation Safety Awareness Decreased Safety Awareness Memory Description Short Term Impaired Bale Coverer Impaired Gross Range of Motion Lower Extremity ROM Assessment Bilaterally Impaired Impairments R knee flexion contracture of ~ 30 deg Strength Lower Extremity Strength Assessment Bilaterally Impaired Comments Strength Comments RLE 3+/5 LLE4-/5 M6 PT-IP Treatment Start: 12/13/17 12:10 Freq: NEEDED Status: Active Protocol: Document 12/15/17 16:22 TMS (Rec: 12/15/17 16:34 TMS [id number]) Physical Therapy Treatment Exercises Exercises Ankle Pumps Heel Slides Short Arc Quads M7 PT-IP Assessment and Plan Start: 12/13/17 12:10 Freq: NEEDED Status: Active Protocol: Document 12/15/17 16:22 TMS (Rec: 12/15/17 16:34 TMS [id number]) PT Summary Assessment and Plan Summary Assessment Summary BP improved since this AM; 164 /76. Pt. moves too quickly at times, needs cues for safety when on feet. Frequency of Treatment Frequency Of Treatment Twice a Day Treatment Plan Other Recommendations and Next Treatment bed mobility, gait and knee Focus rom Recommendations To Nursing Amount of Assist Needed 1 Person Assist Discharge Recommendations PT Discharge Recommendations SNF Rehab
[2017-12-16] VITALS (8 sets, daily range): BP systolic 129–179; BP diastolic 61–89; PULSE 50–62; RESP 14–18; TEMP 36.1–36.9; O2SAT 95–100
[2017-12-16] MEDS: PANTOPRAZOLE 40 MG VIAL IV ×2 (04:39→16:48)
[2017-12-16] MEDS: DEXTROSE 5%-0.9% NS 1,000 ML 125 ML IV (04:39)
[2017-12-16] MEDS: methylPREDNISolone 125 MG/2 ML VIAL 60 MG IV ×3 (05:20→21:24)
[2017-12-16] MEDS: MORPHINE PCA 30 MG/30 ML PCA.VIAL IV ×3 (06:23→21:27)
[2017-12-16 06:51] LABS: Hematocrit 26.9 % (41-53); Hemoglobin 8.9 g/dL (13.5-17.5); Mean Corpuscular HGB Conc 33.1 % (30-36); Mean Corpuscular Hemoglobin 28.5 PG (26-34); Mean Corpuscular Volume 86.1 fL (80-100); Platelet Count 222 X10^3/uL (150-400); Red Blood Cell Count 3.13 X10^6/uL (4.5-5.9); Red Cell Distribution Width 17.8 % (11.6-14.8); White Blood Cell Count 11.1 X10^3/uL (4.5-11.0)
[2017-12-16 06:55] LABS: Add Manual Diff / Slide Review YES
[2017-12-16 07:02] LABS: Alanine Aminotransferase 44 IU/L (21-72); Albumin 2.7 g/dL (3.5-5.0); Alkaline Phosphatase 65 U/L (38-126); Aspartate Aminotransferase 17 IU/L (17-59); BUN Creatinine Ratio 31.7 (6-22); Bilirubin Total 0.2 mg/dL (0.2-1.3); Blood Urea Nitrogen 38 mg/dL (9-20); Calcium 8.4 mg/dL (8.4-10.2); Carbon Dioxide 21 mmol/L (22-32); Chloride 111 mmol/L (98-107); Estimated Glomerular Filt Rate 58.3 mL/min (>60); Globulin 2.8 g/dL (1.7-4.1); Glucose 195 mg/dL (80-110); HEMOLYSIS < 15 (0-50); Potassium 4.2 mmol/L (3.4-5.1); Sodium 140 mmol/L (137-145); Total Protein 5.5 g/dL (6.3-8.2)
[2017-12-16 07:25] LABS: Neutrophils Absolute Manual 9213 /uL (3000-5900); Total Cells Counted 100
[2017-12-16] MEDS: AMLODIPINE 5 MG TABLET PO (08:21)
[2017-12-16] MEDS: METOPROLOL ER 25 MG TABLET PO (08:21)
[2017-12-16] MEDS: FEBUXOSTAT PO (08:21)
[2017-12-16] MEDS: COLCHICINE 0.6 MG TABLET PO ×2 (08:21→21:23)
[2017-12-16] MEDS: ENOXAPARIN 40 MG/0.4 ML SYRINGE SUBCUT (08:21)
[2017-12-16] MEDS: SERTRALINE 50 MG TABLET 100 MG PO (08:21)
--- NOTE | 2017-12-16 10:30 | PT.IPTN ---
Current Diagnoses Anemia, unspecified (12/12/17) Hyperlipidemia, unspecified (12/12/17) Major depressive disorder, single episode, unspecified (12/12/17) Atherosclerotic heart disease of [place] coronary artery without angina pectoris (12/12/17) Chronic gout, unspecified, with tophus (tophi) (12/12/17) Pain in unspecified joint (12/12/17) Polymyalgia rheumatica (12/12/17) Myalgia (12/12/17) Chronic kidney disease, stage 3 (moderate) (12/12/17) Cardiac murmur, unspecified (12/12/17) Physical Therapy Treatment Note M2 PT-IP Current Condition Start: 12/13/17 12:10 Freq: NEEDED Status: Active Protocol: Document 12/16/17 09:28 RCC (Rec: 12/16/17 10:30 [facility] [id number]) Physical Therapy Current Condition Current Condition Evaluation Date 12/13/17 Treatment Diagnosis R knee pain Onset Date 12/12/17 Weight Bearing Status Weight Bearing Status Weight Bear as Tolerated M3 PT-IP Subjective Start: 12/13/17 12:10 Freq: NEEDED Status: Active Protocol: Document 12/16/17 09:28 RCC (Rec: 12/16/17 10:30 [facility] [id number]) Subjective Physical Therapy Visit Type Type Treatment Note Visit Start Time 09:03 Visit Stop Time 09:28 Total Visit Minutes 25 Notes Pt switched to inpatient status per CM on 12/15/2017. Number of ESE TEACHER Visits 0 Physical Therapy Visit Comments Patient Comments Pt reports that he still does not feel strong enough to try stairs, he does not think he could manage at home at this point. Therapy Pain Assessment Pain When Pain Assessed At Rest Pain Present Pain Present Pain Reported Location Right Knee Intensity 2 Scale Used Numeric (1 - 10) Description Burning Sharp Pain Behaviors Facial Grimacing Pain Management Techniques Modification of Treatment M4 PT-IP Mobility and Gait Start: 12/13/17 12:10 Freq: NEEDED Status: Active Protocol: Document 12/16/17 09:28 RCC (Rec: 12/16/17 10:30 [facility] [id number]) PT-Bed Mobility Assessment Sit to Supine Sit to Supine Contact Guard Assistance Scooting Scooting to Edge of Bed Standby Assistance Scooting Up and Down in Bed Minimal Assistance PT-Transfer Assessment Sit to and From Stand Sit to and from Stand Contact Guard Assistance Equipment Transfer Assistive Device Front Wheeled Walker Orthotic/Prosthetic Devices or Brace: No Transfers Transfer Destination Bed Transfer Technique Stand Step Pivot Comments Mobility Comments LLE to support RLE getting into bed. CGA standing at EOB to urinate, but pt required assistance with management of gown and urinal. Gait Assessment Gait Gait Assistance Required: Contact Guard Assist 1 Person Assist Distance (Feet) (feet) 130 Able to Maintain Weight Bearing Status Yes During Gait Assistive Devices Assistive Device Gait Belt Front Wheeled Walker Gait Deviations General Gait Pattern Antalgic Decreased Stride Length Decreased Feet Clearance Step-to Gait Factors Limiting Gait Function Factors Limiting Gait Function Decreased Activity Tolerance Decreased Strength Limited Range of Motion Pain Poor Balance Poor Safety Awareness Comments Gait Comments Step-to pattern due to R knee pain (L foot step-to, decreased foot clearance) PT-Balance Assessment Sitting Balance and Reactions Static Sitting Balance Ability Good Dynamic Sitting Balance Ability Fair Standing Balance and Reactions Static Standing Balance Ability Fair Dynamic Standing Balance Ability Fair M5 PT-IP Objective Assessments Start: 12/13/17 12:10 Freq: NEEDED Status: Active Protocol: Document 12/13/17 12:11 AB (Rec: 12/13/17 12:21 AB [id number]) Orientation Orientation/Cognition Level of Alertness Alert Orientation Name Place Situation Safety Awareness Decreased Safety Awareness Memory Description Short Term Impaired Organizational Effectiveness Director Impaired Gross Range of Motion Lower Extremity ROM Assessment Bilaterally Impaired Impairments R knee flexion contracture of ~ 30 deg Strength Lower Extremity Strength Assessment Bilaterally Impaired Comments Strength Comments RLE 3+/5 LLE4-/5 M7 PT-IP Assessment and Plan Start: 12/13/17 12:10 Freq: NEEDED Status: Active Protocol: Document 12/16/17 09:28 RCC (Rec: 12/16/17 10:30 [facility] [id number]) PT Summary Assessment and Plan Summary Assessment Summary Pt still unable to achieve R knee extension fully, therefore demonstrates increased R knee flexion throughout gait, and unable to perform step-through gait pattern. Pt's activity tolerance appears to be improving slowly, but is making improvements and demonstrates that pt is benefitting from skilled physical therapy services. Pt is not safe at this time to d/ c home, as he is unable to tolerate stairs which he will need to be able to manage 15 steps x2 to be able to get to/ from bedroom of his home. Goals Bed Mobility Goal Contact Guard Assistance Transfer Goal Contact Guard Assistance Gait Goal Contact Guard Assistance Gait Distance 50 Other Goals up/down 1 step using FWW; ~ 30 steps using R rail ascending CGA Days to Meet Goals 5 Frequency of Treatment Frequency Of Treatment Twice a Day Treatment Plan Physical Therapy Treatment Plan Transfer Training Gait Training Therapeutic Exercise Balance Retraining Other Recommendations and Next Treatment prog. gait, knee ROM and Focus strength, stairs when able Recommendations To Nursing Amount of Assist Needed 1 Person Assist Discharge Recommendations PT Discharge Recommendations SNF Rehab
[2017-12-16] MEDS: CLOPIDOGREL 75 MG TABLET PO (12:01)
--- NOTE | 2017-12-16 12:04 | P.PN_ITS ---
Subjective Date Patient Seen: 12/16/17 Time Patient Seen: 11:59 Interval history: Feeling a bit better. I see him just after he has had a shower with OT and that seemed to go okay. His right leg is feeling a bit stronger a little less pain but still needs quite a bit of assistance. Otherwise okay no chest pain now appetite is okay a little concerned about the frequency of urination he says this is ongoing and has been treated in various ways in the past without much success but would be willing to try something again. Also reviewed for the record his code status preference and he is inclined to request full code. Exam Vital Signs (past 8 hours): Vital Signs - 8 hr 3 12/16/17 08:19 Temperature 97.0 F L Pulse Rate 62 Respiratory Rate 16 Blood Pressure 129/68 H Pulse Oximetry 100 Pulse Oximetry 100 Oxygen Delivery Method Room Air Oxygen Flow Rate 0 Narrative Exam Narrative: In bed lying quietly no acute distress conversant and appropriate. HEENT unremarkable neck is benign chest is clear heart regular without murmur abdomen soft nontender nondistended normoactive bowel tones right knee shows some tenderness a little puffy but improved other extremities benign neurologically benign Objective Labs Result Diagrams: 12/16/17 06:44 12/16/17 06:44 Labs: Laboratory Results - last 24 hr 12/16/17 12/16/17 06:44 06:44 WBC 11.1 H RBC 3.13 L Hgb 8.9 L Hct 26.9 L MCV 86.1 MCH 28.5 MCHC 33.1 RDW 17.8 H Plt Count 222 Neut % (Auto) Not Reportable Lymph % (Auto) Not Reportable [place] % (Auto) Not Reportable Eos % (Auto) Not Reportable Baso % (Auto) Not Reportable Total Counted 100 Seg Neutrophils % 80.0 H Band Neutrophils % 3.0 Lymphocytes % (Manual) 17.0 L Neutrophils # (Manual) 9213 H RBC Morphology Not Reportable Sodium 140 Potassium 4.2 Chloride 111 H Carbon Dioxide 21 L BUN 38 H Creatinine 1.20 Estimated GFR 58.3 L BUN/Creatinine Ratio 31.7 H Glucose 195 H Calcium 8.4 Total Bilirubin 0.2 AST 17 ALT 44 Alkaline Phosphatase 65 Total Protein 5.5 L Albumin 2.7 L Globulin 2.8 Albumin/Globulin Ratio 1.0 Assessment & Plan (1) Generalized weakness: Problem details: Somewhat better, slow progress after being essentially bed-bound for months. Current visit: Yes Status: Acute (2) Gout: Problem details: Somewhat better I suspected due at least in part due to higher dose IV steroids now. Current visit: Yes Status: Acute (3) Arthralgia: Problem details: As above Current visit: Yes Status: Acute (4) Anemia: Problem details: Somewhat worse seems to be more of an acute on chronic process no evidence of blood loss will check nutritional indices Current visit: No Status: Acute (5) BPH loc w urin obs/LUTS: Problem details: Will start tamsulosin consider other options. May need to consider Urology for other options. Current visit: Yes Status: Acute (6) Chronic pain: Problem details: as above. Current visit: Yes Status: Acute (7) Coronary artery disease: Problem details: not a current concern Current visit: No Status: Acute (8) Depression: Problem details: ongoing medication Current visit: No Status: Acute Plan: Assessment/Plan Narrative: Continue all for now will follow labs for anemia, cut back his IV fluids a bit. Continue OT and PT. Still likely to require SNF after discharge. May be ready for that on Monday. Quality VTE Deep Vein Thrombosis/Pulmonary Embolism Present on Admission: No
--- NOTE | 2017-12-16 12:30 | OT.IP.EVAL ---
Current Diagnoses Anemia, unspecified (12/12/17) Hyperlipidemia, unspecified (12/12/17) Major depressive disorder, single episode, unspecified (12/12/17) Atherosclerotic heart disease of [place] coronary artery without angina pectoris (12/12/17) Chronic gout, unspecified, with tophus (tophi) (12/12/17) Pain in unspecified joint (12/12/17) Polymyalgia rheumatica (12/12/17) Myalgia (12/12/17) Chronic kidney disease, stage 3 (moderate) (12/12/17) Benign prostatic hyperplasia with lower urinary tract symptoms (12/12/17) Cardiac murmur, unspecified (12/12/17) Occupational Therapy Inpatient Evaluation/Re-Eval M1 PT/OT-IP Prior Functional Status Start: 12/13/17 19:26 Freq: NEEDED Status: Active Protocol: Document 12/13/17 19:26 PJKatty (Rec: 12/13/17 19:41 PJ [id number]) Medical Review Prior Functional Status Medical History Reviewed Yes Diet/Fluid Consistency Regular Communication WFL Mobility and Gait per daughter: pt requires assists with all tasks. spouse has been assistng pt for the ~ last 7 months and pt not able to ambulate without physical assist even with use of FWW. Activities of Daily Living and IADL's requires assist with all ADLs Prior Functional Level (Other details) does all IADLS and helps manage their [employer] business. Social History Household Members spouse Living Arrangements House Number of Floors (Floors) Two Floors Number of Stairs To Enter/Railing? 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 M2 OT-IP Current Condition Start: 12/13/17 19:26 Freq: Status: Active Protocol: Document 12/13/17 19:26 PJM (Rec: 12/13/17 19:41 PJ [id number]) Occupational Therapy Current Condition Current Condition Evaluation Date 12/13/17 Treatment Diagnosis decreased self care and functional mobility Diagnosis Onset Date 12/12/17 M3 OT- IP Subjective and Pain Start: 12/13/17 19:26 Freq: Status: Active Protocol: Document 12/16/17 10:50 [facility] (Rec: 12/16/17 12:29 [facility] [id number]) OT- Subjective Occupational Therapy Visit Type Type Treatment Note Visit Start Time 10:50 Visit Stop Time 11:50 Total Visit Minutes 60 Occupational Therapy Visit Comments Patient Comments Pt wanting to use the bathroom and shower. Patient/Caregiver Goals To be able to get stronger and do more for himself. OT Pain Assessment Pain When Pain Assessed At Rest Pain Present Pain Present Pain Reported Location Right Knee Intensity 3 Scale Used Numeric (1 - 10) Description Chronic Pain Behaviors Facial Grimacing M4 OT- IP ADL's Start: 12/13/17 19:26 Freq: Status: Active Protocol: Document 12/16/17 10:50 [facility] (Rec: 12/16/17 12:29 [facility] [id number]) OT ADL-Grooming General Evaluation Grooming Ability Contact Guard Assistance Comments OT Grooming Comments CGA at times for balacne when pt not holding FWW or counter. VC for completeness of sequencing for tasks. OT ADL-Dressing General Eval Upper Body Dressing Ability Minimal Assistance Lower Body Dressing Ability Maximum Assistance Comments OT Dressing Comments Today increased ability to assist with LB dressing, able to pull up and down brief, and estela left leg into brief. OT ADL-Toileting General Evaluation Toileting Ability Minimal Assistance Areas Needing Assistance Manage Clothing Devices Toileting Assistive Devices Grab Bars Comments OT Toileting Comments Improved to MARLENA for balance while pt doing clothing and pericare needs. OT ADL-Bathing Bathing Type Bathing Type Shower General Evaluation Bathing Ability Moderate Assistance Areas Needing Assistance Retrieving/Setting Up Items Wash/Dry Back Wash/Dry Lower Extremities Devices Bathing Equipment Hand Held Shower Sprayer Shower Chair with Arms Grab Bars Comments OT Bathing Comments Assist for back , and LE, and MARLENA for balance while standing. MAX vc for completeness and sequencing as needing reminders to wash pericare area. Pt heavily relizes on the grab bars while standing. Decreased safety as trying to place head on the wall to help with his balance while standing versus just use of shower chair to sit. M5 OT- IP IADL's Start: 12/13/17 19:26 Freq: Status: Active Protocol: Document 12/13/17 19:26 PJM (Rec: 12/13/17 19:41 PJM [id number]) OT-Instrumental Activities of Daily Living Deficits IADL Deficits Identified Deficits Home Safety Awareness Awareness of Need for Assistance at Home Good Awareness Medication Management Medication Management Caregiver Provides Supervision Money Management Money Management Caregiver Provides Supervision Meal Preparation Meal Preparation Caregiver Provides Assist Refund Clerk Refund Clerk Caregiver Provides Assist Driving Driving Caregiver Provides Assist M6 OT- IP Functional Cognition Start: 12/13/17 19:26 Freq: Status: Active Protocol: Document 12/16/17 10:50 [facility] (Rec: 12/16/17 12:29 [facility] [id number]) Cognitive Factors Limiting Selfcare Function Cognitive Ability Level of Alertness Alert Patient Orientation Name Attention Span Ability Capable of Focused Attention Ability to Follow Commands Able to Follow One Step Commands Memory Description Short Term Impaired Intermediate Impaired Safety Awareness Underestimates Need for Assistance Problem Solving Ability Needs Assist to Identify Solutions Cognitive Comments Cognitive Assessment Comments VC for safety, place hand back before sitting and to help push up, keep FWW in front of him at all times, and sequncing through ADl needs. M7 OT- IP Mobility and Balance Start: 12/13/17 19:26 Freq: Status: Active Protocol: Document 12/16/17 10:50 [facility] (Rec: 12/16/17 12:29 [facility] [id number]) OT- Bed Mobility Assessment Rolling Type of Rolling Roll to Left Level of Assistance Standby Assistance Bedrails OT-Transfer Assessment Sit to and From Stand Sit to and from Stand Minimal Assistance Moderate Assistance Transfers Transfer Ability Contact Guard Assistance Technique Transfer Destination Chair Transfer Technique Stand Step Pivot Devices Transfer Assistive Devices Gait Belt Front Wheeled Walker OT- Balance Assessment Sitting Balance and Reactions Static Sitting Balance Ability Good Dynamic Sitting Balance Ability Good Standing Balance and Reactions Static Standing Balance Ability Fair Dynamic Standing Balance Ability Poor M8 OT- IP Objective Assessments Start: 12/13/17 19:26 Freq: Status: Active Protocol: Document 12/13/17 19:26 PJ (Rec: 12/13/17 19:41 [facility] [id number]) OT Gross Range of Motion Upper Extremity Range of Motion Assessment Left Impaired ROM Impairments B shoulder scaption limited to about 110 degrees by stiffness. OT Strength Upper Extremity Strength Assessment Bilaterally Impaired Shoulder 4-/5 Elbow 4/5 Hand 4-/5 Comments Strength Comments generally decreased BUE strength, no focal weakness noted OT- Coordination Assessment Comments Coordination Comments appears WFL BUE, but with stiffness in IP's OT-Muscle Tone Assessment Muscle Tone WNL Yes OT Sensation Assessment Comments Summary Comments Pt denies sensory deficits in BUE's Edema Edema Present Edema Comments R knee and L elbow swollen M9 OT- IP Assessment and Plan Start: 12/13/17 19:26 Freq: Status: Active Protocol: Document 12/16/17 10:50 [facility] (Rec: 12/16/17 12:29 [facility] [id number]) OT Summary Assessment and Plan Potential Rehabilitation Potential Good Analytic Complexity at Evaluation Low Summary OT Impairments Pain Strength Balance Functional Mobility Dressing Toileting Bathing Toilet Transfers Shower Transfers Progress Towards Goals Slow Progress due to Pain Slow Progress due to Activity Tolerance Slow Progress due to Cognition Goals Dressing Goal Minimal Assistance Dressing Stick Long Handled Shoe [place] [employer] Security Engineer Toileting Goal Standby Assistance Bathing Goal Minimal Assistance Toilet Transfer Goal Standby Assistance Shower Transfer Goal Standby Assistance OT-Other Goals OT goals upgraded as pt doing better. Days to Meet Goals 5 Frequency of Treatment Frequency Of Treatment Once a Day Treatment Plan OT Treatment Plan ADL Training Therapeutic Exercises Patient/Family Education Discharge Planning Other Treatment Recommendations and Next Safety for Adl needs. Treatment Focus Discharge Recommendations OT Discharge Recommendations SNF Rehab
[2017-12-16] MEDS: TAMSULOSIN 0.4 MG CAPSULE PO (12:54)
[2017-12-16] MEDS: DEXTROSE 5%-0.9% NS 1,000 ML 75 ML IV (13:30)
--- NOTE | 2017-12-16 15:40 | PT.IPTN ---
Current Diagnoses Anemia, unspecified (12/12/17) Hyperlipidemia, unspecified (12/12/17) Major depressive disorder, single episode, unspecified (12/12/17) Atherosclerotic heart disease of [place] coronary artery without angina pectoris (12/12/17) Chronic gout, unspecified, with tophus (tophi) (12/12/17) Pain in unspecified joint (12/12/17) Polymyalgia rheumatica (12/12/17) Myalgia (12/12/17) Chronic kidney disease, stage 3 (moderate) (12/12/17) Benign prostatic hyperplasia with lower urinary tract symptoms (12/12/17) Cardiac murmur, unspecified (12/12/17) Physical Therapy Treatment Note M2 PT-IP Current Condition Start: 12/13/17 12:10 Freq: NEEDED Status: Active Protocol: Document 12/16/17 15:00 [facility] (Rec: 12/16/17 15:40 [facility] [id number]) Physical Therapy Current Condition Current Condition Evaluation Date 12/13/17 Treatment Diagnosis R knee pain Onset Date 12/12/17 Weight Bearing Status Weight Bearing Status Weight Bear as Tolerated M3 PT-IP Subjective Start: 12/13/17 12:10 Freq: NEEDED Status: Active Protocol: Document 12/16/17 15:00 [facility] (Rec: 12/16/17 15:40 [facility] [id number]) Subjective Physical Therapy Visit Type Type Treatment Note Visit Start Time 14:45 Visit Stop Time 15:00 Total Visit Minutes 15 Notes Pt switched to inpatient status per on 12/15/2017. Number of TEXT TRANSCRIBER Visits 0 Physical Therapy Visit Comments Patient Comments Pt agreeable to ambulate, states pain is improving but still using MOLECULAR TECHNOLOGIST. Therapy Pain Assessment Pain When Pain Assessed At Rest Pain Present Pain Present Pain Reported Location Right Knee Intensity 4 Scale Used Numeric (1 - 10) Description Burning Sharp Pain Behaviors Facial Grimacing Pain Management Techniques Modification of Treatment M4 PT-IP Mobility and Gait Start: 12/13/17 12:10 Freq: NEEDED Status: Active Protocol: Document 12/16/17 15:00 [facility] (Rec: 12/16/17 15:40 [facility] [id number]) PT-Bed Mobility Assessment Supine to Sit Supine to Sit Contact Guard Assistance Sit to Supine Sit to Supine Contact Guard Assistance Scooting Scooting to Edge of Bed Standby Assistance PT-Transfer Assessment Sit to and From Stand Sit to and from Stand Contact Guard Assistance Equipment Transfer Assistive Device Front Wheeled Walker Orthotic/Prosthetic Devices or Brace: No Transfers Transfer Destination Bed Transfer Technique Stand Step Pivot Comments Mobility Comments LLE assist RLE back into bed but able to do short SLR to get out with the RLE. Gait Assessment Gait Gait Assistance Required: Contact Guard Assist 1 Person Assist Distance (Feet) (feet) 140 Able to Maintain Weight Bearing Status Yes During Gait Assistive Devices Assistive Device Gait Belt Front Wheeled Walker Gait Deviations General Gait Pattern Antalgic Decreased Stride Length Decreased Feet Clearance Step-to Gait Factors Limiting Gait Function Factors Limiting Gait Function Decreased Activity Tolerance Decreased Strength Limited Range of Motion Pain Poor Balance Poor Safety Awareness Comments Gait Comments Slight increase in step length on the L, but still step-to PT-Balance Assessment Sitting Balance and Reactions Static Sitting Balance Ability Good Dynamic Sitting Balance Ability Fair Standing Balance and Reactions Static Standing Balance Ability Fair Dynamic Standing Balance Ability Fair Device Used FWW M5 PT-IP Objective Assessments Start: 12/13/17 12:10 Freq: NEEDED Status: Active Protocol: Document 12/13/17 12:11 AB (Rec: 12/13/17 12:21 AB [id number]) Orientation Orientation/Cognition Level of Alertness Alert Orientation Name Place Situation Safety Awareness Decreased Safety Awareness Memory Description Short Term Impaired Line Clearance Foreman Impaired Gross Range of Motion Lower Extremity ROM Assessment Bilaterally Impaired Impairments R knee flexion contracture of ~ 30 deg Strength Lower Extremity Strength Assessment Bilaterally Impaired Comments Strength Comments RLE 3+/5 LLE4-/5 M6 PT-IP Treatment Start: 12/13/17 12:10 Freq: NEEDED Status: Active Protocol: Document 12/16/17 15:00 [facility] (Rec: 12/16/17 15:40 [facility] [id number]) Physical Therapy Treatment Exercises Exercises Short Arc Quads M7 PT-IP Assessment and Plan Start: 12/13/17 12:10 Freq: NEEDED Status: Active Protocol: Document 12/16/17 15:00 [facility] (Rec: 12/16/17 15:40 [facility] [id number]) PT Summary Assessment and Plan Summary Assessment Summary Pt initially slightly unsteady standing due to pain in R knee, and unable to achieve full R knee extension at any time during mobility. Pt is below his prior level of function, and began to have increased antalgic gait and fatigue with ambulation using FWW. Goals Bed Mobility Goal Contact Guard Assistance Transfer Goal Contact Guard Assistance Gait Goal Contact Guard Assistance Gait Distance 50 Other Goals up/down 1 step using FWW; ~ 30 steps using R rail ascending CGA Days to Meet Goals 5 Frequency of Treatment Frequency Of Treatment Twice a Day Treatment Plan Physical Therapy Treatment Plan Transfer Training Gait Training Therapeutic Exercise Balance Retraining Other Recommendations and Next Treatment continue gait, R knee Focus exercises, stairs when able. Recommendations To Nursing Amount of Assist Needed 1 Person Assist Discharge Recommendations PT Discharge Recommendations SNF Rehab
[2017-12-17] VITALS (11 sets, daily range): BP systolic 141–194; BP diastolic 64–101; PULSE 50–62; RESP 16; TEMP 36.3–37; O2SAT 95–98
[2017-12-17] MEDS: DEXTROSE 5%-0.9% NS 1,000 ML 75 ML IV ×2 (02:40→14:41)
[2017-12-17] MEDS: PANTOPRAZOLE 40 MG VIAL IV ×2 (04:30→16:35)
[2017-12-17] MEDS: methylPREDNISolone 125 MG/2 ML VIAL 60 MG IV ×3 (04:45→20:15)
[2017-12-17 05:37] LABS: BUN Creatinine Ratio 29.2 (6-22); Blood Urea Nitrogen 38 mg/dL (9-20); Calcium 8.7 mg/dL (8.4-10.2); Carbon Dioxide 22 mmol/L (22-32); Chloride 110 mmol/L (98-107); Estimated Glomerular Filt Rate 53.1 mL/min (>60); Glucose 164 mg/dL (80-110); HEMOLYSIS < 15 (0-50); Potassium 4.1 mmol/L (3.4-5.1); Sodium 141 mmol/L (137-145)
[2017-12-17 05:46] LABS: Hematocrit 28.3 % (41-53); Hemoglobin 9.2 g/dL (13.5-17.5); Mean Corpuscular HGB Conc 32.7 % (30-36); Mean Corpuscular Hemoglobin 28.1 PG (26-34); Mean Corpuscular Volume 85.9 fL (80-100); Platelet Count 224 X10^3/uL (150-400); Red Blood Cell Count 3.29 X10^6/uL (4.5-5.9); Red Cell Distribution Width 18.2 % (11.6-14.8); White Blood Cell Count 13.6 X10^3/uL (4.5-11.0)
[2017-12-17 05:48] LABS: HEMOLYSIS < 15 (0-50); Iron 57 ug/dL (49-181)
[2017-12-17 05:56] LABS: Add Manual Diff / Slide Review YES
[2017-12-17 05:59] LABS: Percent Iron Saturation 23 % (20-50); Total Iron Binding Capacity 253 ug/dL (261-462); Transferrin 183 mg/dL (206-381)
[2017-12-17] MEDS: MORPHINE PCA 30 MG/30 ML PCA.VIAL IV ×3 (06:18→22:29)
[2017-12-17 06:42] LABS: Folate 4.6 ng/mL (2.76-20.0); Vitamin B12 824 pg/mL (239-931)
[2017-12-17 07:56] LABS: Anisocytosis 1+; Neutrophils Absolute Manual 11016 /uL (3000-5900); Total Cells Counted 100
[2017-12-17 07:57] LABS: Hypochromasia 1+
[2017-12-17] MEDS: AMLODIPINE 5 MG TABLET PO (09:16)
[2017-12-17] MEDS: COLCHICINE 0.6 MG TABLET PO ×2 (09:16→20:15)
[2017-12-17] MEDS: ENOXAPARIN 40 MG/0.4 ML SYRINGE SUBCUT (09:17)
[2017-12-17] MEDS: METOPROLOL ER 25 MG TABLET PO (09:17)
[2017-12-17] MEDS: TAMSULOSIN 0.4 MG CAPSULE PO (09:18)
[2017-12-17] MEDS: SERTRALINE 50 MG TABLET 100 MG PO (09:18)
--- NOTE | 2017-12-17 09:58 | PC.NURSE ---
Addendum entered by Millicent Anderson R.N. 12/17/17 13:20: Ambulated [facility] with PT twice after lunch, then back to bed per patient request. Reports minimal pain in R knee, has not used CREDIT PRODUCTS OFFICER this shift. Denies needs now. Light in reach, bed alarm on. Original Note: Addendum entered by Millicent Anderson R.N. 12/17/17 12:29: BP and HR- This creative services writer let Dr Alexandra know that patient is hypertensive, and his heart rate has been 49-[address]. [address] Alexandra that a.m. BP meds were given as ordered, patient has been asymptomatic (no dizziness, lightheadedness with ambulation). MD noted info and was going to take a look at things and will POM any new orders. Original Note: Alert and oriented X3. Reports 3/10 pain in R knee. Has not used CREDIT PRODUCTS OFFICER this morning, but is aware it's available PRN. He reports improvement in his mobility as compared to admit. Lungs CTA, HRR. HTN, HR luisa around 50, asymptomatic. IVF per order, site in R forearm WNL. Able to make needs known and calls appropriately. Light in reach, chair alarm on. PT in to see now.
--- NOTE | 2017-12-17 10:09 | CM.DPNOTE ---
Addendum entered by MARYAN Cali 12/18/17 08:38: [facility]/Sana left voicemail: able to accept patient. Original Note: SNF Planning: Patient currently IP status and requiring SNF at discharge. Met with patient: Patient was provided with medicare choice list. Patient agreeable to SNF and gave preference to [facility]. Patient will update family on choice. Called [facility]: She will review patient for acceptance. Patients will become Medicare eligible for SNF coverage Monday 12/18. Plan: SNF. SW to complete PASRR and follow up with [facility] for acceptance.
--- NOTE | 2017-12-17 10:22 | PT.IPTN ---
Current Diagnoses Anemia, unspecified (12/15/17) Hyperlipidemia, unspecified (12/15/17) Major depressive disorder, single episode, unspecified (12/15/17) Other chronic pain (12/15/17) Atherosclerotic heart disease of [place] coronary artery without angina pectoris (12/15/17) Gout, unspecified (12/15/17) Chronic gout, unspecified, with tophus (tophi) (12/15/17) Pain in unspecified joint (12/15/17) Polymyalgia rheumatica (12/15/17) Myalgia (12/15/17) Chronic kidney disease, stage 3 (moderate) (12/15/17) Benign prostatic hyperplasia with lower urinary tract symptoms (12/15/17) Cardiac murmur, unspecified (12/15/17) Weakness (12/15/17) Physical Therapy Treatment Note M2 PT-IP Current Condition Start: 12/13/17 12:10 Freq: NEEDED Status: Active Protocol: Document 12/16/17 15:00 RCC (Rec: 12/16/17 15:40 RCC [id number]) Physical Therapy Current Condition Current Condition Evaluation Date 12/13/17 Treatment Diagnosis R knee pain Onset Date 12/12/17 Weight Bearing Status Weight Bearing Status Weight Bear as Tolerated M3 PT-IP Subjective Start: 12/13/17 12:10 Freq: NEEDED Status: Active Protocol: Document 12/17/17 09:50 CLB (Rec: 12/17/17 10:22 CLB [id number]) Subjective Physical Therapy Visit Type Type Treatment Note Visit Start Time 09:50 Visit Stop Time 10:07 Total Visit Minutes 17 Number of EDGE BONDER Visits 1 Physical Therapy Visit Comments Patient Comments Pt agreeable to do therapy. Therapy Pain Assessment Pain When Pain Assessed During Mobility Pain Present Pain Present Pain Reported M4 PT-IP Mobility and Gait Start: 12/13/17 12:10 Freq: NEEDED Status: Active Protocol: Document 12/17/17 09:50 CLB (Rec: 12/17/17 10:22 CLB [id number]) PT-Transfer Assessment Sit to and From Stand Sit to and from Stand Contact Guard Assistance Equipment Transfer Assistive Device Front Wheeled Walker Orthotic/Prosthetic Devices or Brace: No Transfers Transfer Destination Chair Gait Assessment Gait Gait Assistance Required: Contact Guard Assist 1 Person Assist Distance (Feet) (feet) 150 Able to Maintain Weight Bearing Status Yes During Gait Assistive Devices Assistive Device Gait Belt Front Wheeled Walker Gait Deviations General Gait Pattern Antalgic Decreased Stride Length Factors Limiting Gait Function Factors Limiting Gait Function Decreased Activity Tolerance Decreased Strength Limited Range of Motion Pain Poor Balance Poor Safety Awareness Comments Gait Comments Pt using a small step through gait pattern with decreased pain in RLE. Stair Climbing Assessment Comments Stair Climbing Comments Pt not feeling he could manage stairs at this time. PT-Balance Assessment Sitting Balance and Reactions Static Sitting Balance Ability Good Dynamic Sitting Balance Ability Fair Standing Balance and Reactions Static Standing Balance Ability Fair Dynamic Standing Balance Ability Fair Device Used FWW M5 PT-IP Objective Assessments Start: 12/13/17 12:10 Freq: NEEDED Status: Active Protocol: Document 12/13/17 12:11 AB (Rec: 12/13/17 12:21 AB [id number]) Orientation Orientation/Cognition Level of Alertness Alert Orientation Name Place Situation Safety Awareness Decreased Safety Awareness Memory Description Short Term Impaired Wet Finisher Impaired Gross Range of Motion Lower Extremity ROM Assessment Bilaterally Impaired Impairments R knee flexion contracture of ~ 30 deg Strength Lower Extremity Strength Assessment Bilaterally Impaired Comments Strength Comments RLE 3+/5 LLE4-/5 M6 PT-IP Treatment Start: 12/13/17 12:10 Freq: NEEDED Status: Active Protocol: Document 12/17/17 09:50 CLB (Rec: 12/17/17 10:22 CLB [id number]) Physical Therapy Treatment Exercises Exercises Seated Knee Flexion/Extension M7 PT-IP Assessment and Plan Start: 12/13/17 12:10 Freq: NEEDED Status: Active Protocol: Document 12/17/17 09:50 CLB (Rec: 12/17/17 10:22 CLB [id number]) PT Summary Assessment and Plan Summary Assessment Summary Pt continues to seem slightly unsteady with standing balance and requires CGA. Pt using small step through gait pattern. Pt is unable to fully extend R knee. Goals Bed Mobility Goal Contact Guard Assistance Transfer Goal Contact Guard Assistance Gait Goal Contact Guard Assistance Gait Distance 50 Other Goals up/down 1 step using FWW; ~ 30 steps using R rail ascending CGA Days to Meet Goals 5 Frequency of Treatment Frequency Of Treatment Twice a Day Treatment Plan Physical Therapy Treatment Plan Transfer Training Gait Training Therapeutic Exercise Balance Retraining Other Recommendations and Next Treatment continue gait, R knee Focus exercises, stairs when able. Recommendations To Nursing Amount of Assist Needed 1 Person Assist Discharge Recommendations PT Discharge Recommendations SNF Rehab
--- NOTE | 2017-12-17 12:10 | PM.PN.1 ---
Subjective Date Patient Seen: 12/17/17 Time Patient Seen: 12:10 Interval history: Seen with , Twyla, this morning. He indicates that he is feeling steadily better. His right knee which has been a primary source of concern has still been a bit of a pain but steadily improving less swollen. He has been working with Physical therapy see their note still needing some assistance but moving more freely. Still recommending SNF placement. Reviewed status, Twyla helps fill in some of the gaps of history, there was a injectable agent that was used every couple of weeks for awhile early on trying to get his uric acid and gout under control but he developed allergic symptoms and response to subsequent doses of that was stopped. 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 Sounds like the patient was a little confused about that so was not very clear that he was doing that. But has been struggling with this knee pain in general disability for some months but especially the last several weeks. Exam Vital Signs (past 8 hours): Vital Signs - 8 hr 12/17/17 08:00 12/17/17 09:15 12/17/17 09:52 Temperature 97.3 F L Pulse Rate 51 L 50 L Respiratory Rate 16 Blood Pressure 194/69 H 168/64 H Pulse Oximetry 95 98 Pulse Oximetry 98 Oxygen Delivery Method Room Air Oxygen Flow Rate 0 Narrative Exam Narrative: Fairly healthy-appearing sitting up in a chair no obvious distress, interacting appropriately although somewhat wondering thought processes. HEENT unremarkable neck is benign chest is clear heart regular with same murmur abdomen is soft nontender nondistended, extremities mostly benign but the right knee is still a bit swollen tender and warm compared to the left although no detectable redness. Objective Labs Result Diagrams: 12/17/17 04:58 12/17/17 04:58 Labs: Laboratory Results - last 24 hr 12/17/17 12/17/17 12/17/17 04:58 04:58 04:58 WBC 13.6 H RBC 3.29 L Hgb 9.2 L Hct 28.3 L MCV 85.9 MCH 28.1 MCHC 32.7 RDW 18.2 H Plt Count 224 Neut % (Auto) Not Reportable Lymph % (Auto) Not Reportable [place] % (Auto) Not Reportable Eos % (Auto) Not Reportable Baso % (Auto) Not Reportable Total Counted 100 Seg Neutrophils % 79.0 H Band Neutrophils % 2.0 L Lymphocytes % (Manual) 11.0 L Monocytes % (Manual) 1.0 L Metamyelocytes % 1.0 H Myelocytes % 6.0 H Neutrophils # (Manual) 14833 H RBC Morphology Not Reportable Hypochromasia 1+ H Anisocytosis 1+ H Sodium 141 Potassium 4.1 Chloride 110 H Carbon Dioxide 22 BUN 38 H Creatinine 1.30 H Estimated GFR 53.1 L BUN/Creatinine Ratio 29.2 H Glucose 164 H Calcium 8.7 Iron 57 TIBC 253 L % Saturation 23 Transferrin 183 L Vitamin B12 Folate 12/17/17 04:58 WBC RBC Hgb Hct MCV MCH MCHC RDW Plt Count Neut % (Auto) Lymph % (Auto) [place] % (Auto) Eos % (Auto) Baso % (Auto) Total Counted Seg Neutrophils % Band Neutrophils % Lymphocytes % (Manual) Monocytes % (Manual) Metamyelocytes % Myelocytes % Neutrophils # (Manual) RBC Morphology Hypochromasia Anisocytosis Sodium Potassium Chloride Carbon Dioxide BUN Creatinine Estimated GFR BUN/Creatinine Ratio Glucose Calcium Iron TIBC % Saturation Transferrin Vitamin B12 824 Folate 4.6 Assessment & Plan (1) Uncontrolled pain: Problem details: Related to gout and likely polymyalgia rheumatica. We are finally seen some improvement with current regimen. But this has been a primary source of disability. Current visit: Yes Status: Acute (2) Gout: Problem details: Somewhat better I suspect due at least in part due to higher dose IV steroids now. Also now on more consistent Uloric and colchicine. Will likely require extended oral cortisone at discharge Current visit: Yes Status: Acute (3) Gouty tophi: Problem details: multiple, some painful, perhaps some better. Current visit: Yes Status: Acute (4) Arthralgia: Problem details: As above Current visit: Yes Status: Acute (5) Chronic pain: Problem details: as above. Current visit: Yes Status: Acute (6) Anemia: Problem details: Lab show no nutritional issues number has improved a little over night will continue to monitor. Current visit: Yes Status: Acute (7) Chronic renal failure, stage 3 (moderate): Problem details: long hx, stable today. Current visit: Yes Status: Acute (8) BPH loc w urin obs/LUTS: Problem details: Will start tamsulosin consider other options. He has not noticed any improvement as yet. May need to consider Urology for other options. Current visit: Yes Status: Acute (9) Sedimentation rate elevation: Problem details: Marker elevation on admission will recheck in the morning. Current visit: No Status: Acute (10) CRP elevated: Problem details: Also very high on admission recheck. Will also recheck uric acid Current visit: No Status: Acute (11) Generalized weakness: Problem details: Seems somewhat better based on PT report will require further treatment after discharge Current visit: Yes Status: Acute Plan: Assessment/Plan Narrative: I believe he will be ready for discharge to SNF tomorrow. Will check labs in the morning to confirm status anticipating switched to oral cortisone continue Uloric, colchicine, tamsulosin and others. Quality VTE Deep Vein Thrombosis/Pulmonary Embolism Present on Admission: No
[2017-12-17] MEDS: CLOPIDOGREL 75 MG TABLET PO (12:38)
--- NOTE | 2017-12-17 13:19 | PT.IPTN ---
Current Diagnoses Anemia, unspecified (12/15/17) Hyperlipidemia, unspecified (12/15/17) Major depressive disorder, single episode, unspecified (12/15/17) Other chronic pain (12/15/17) Atherosclerotic heart disease of [place] coronary artery without angina pectoris (12/15/17) Gout, unspecified (12/15/17) Chronic gout, unspecified, with tophus (tophi) (12/15/17) Pain in unspecified joint (12/15/17) Polymyalgia rheumatica (12/15/17) Myalgia (12/15/17) Chronic kidney disease, stage 3 (moderate) (12/15/17) Benign prostatic hyperplasia with lower urinary tract symptoms (12/15/17) Cardiac murmur, unspecified (12/15/17) Pain, unspecified (12/15/17) Weakness (12/15/17) Elevated erythrocyte sedimentation rate (12/15/17) Elevated C-reactive protein (CRP) (12/15/17) Physical Therapy Treatment Note M2 PT-IP Current Condition Start: 12/13/17 12:10 Freq: NEEDED Status: Active Protocol: Document 12/16/17 15:00 RCC (Rec: 12/16/17 15:40 RCC [id number]) Physical Therapy Current Condition Current Condition Evaluation Date 12/13/17 Treatment Diagnosis R knee pain Onset Date 12/12/17 Weight Bearing Status Weight Bearing Status Weight Bear as Tolerated M3 PT-IP Subjective Start: 12/13/17 12:10 Freq: NEEDED Status: Active Protocol: Document 12/17/17 12:45 CLB (Rec: 12/17/17 13:19 CLB [id number]) Subjective Physical Therapy Visit Type Type Treatment Note Visit Start Time 12:45 Visit Stop Time 13:02 Total Visit Minutes 17 Number of VEGETABLE PACKER Visits 2 Physical Therapy Visit Comments Patient Comments Pt agreeable to do therapy then wanting to get back into bed. Therapy Pain Assessment Pain When Pain Assessed During Mobility Pain Present Pain Present Pain Reported Location Right Knee Intensity 2 Scale Used Numeric (1 - 10) M4 PT-IP Mobility and Gait Start: 12/13/17 12:10 Freq: NEEDED Status: Active Protocol: Document 12/17/17 12:45 CLB (Rec: 12/17/17 13:19 CLB [id number]) PT-Bed Mobility Assessment Sit to Supine Sit to Supine Standby Assistance PT-Transfer Assessment Sit to and From Stand Sit to and from Stand Contact Guard Assistance Equipment Transfer Assistive Device Front Wheeled Walker Orthotic/Prosthetic Devices or Brace: No Transfers Transfer Destination Bed Transfer Technique walk Comments Mobility Comments Pt used LLE to assist RLE into bed. Gait Assessment Gait Gait Assistance Required: Contact Guard Assist 1 Person Assist Distance (Feet) (feet) 260 Able to Maintain Weight Bearing Status Yes During Gait Assistive Devices Assistive Device Gait Belt Front Wheeled Walker Gait Deviations General Gait Pattern Antalgic Decreased Stride Length Comments Gait Comments Pt increased distance walking around RN station x2 equaling ~260ft. Pt using small step through gait pattern with antalgic gait of RLE. Stair Climbing Assessment Comments Stair Climbing Comments Pt not feeling he could manage stairs at this time. PT-Balance Assessment Sitting Balance and Reactions Static Sitting Balance Ability Good Dynamic Sitting Balance Ability Fair Standing Balance and Reactions Static Standing Balance Ability Fair Device Used FWW M5 PT-IP Objective Assessments Start: 12/13/17 12:10 Freq: NEEDED Status: Active Protocol: Document 12/13/17 12:11 AB (Rec: 12/13/17 12:21 AB [id number]) Orientation Orientation/Cognition Level of Alertness Alert Orientation Name Place Situation Safety Awareness Decreased Safety Awareness Memory Description Short Term Impaired Senior Care Impaired Gross Range of Motion Lower Extremity ROM Assessment Bilaterally Impaired Impairments R knee flexion contracture of ~ 30 deg Strength Lower Extremity Strength Assessment Bilaterally Impaired Comments Strength Comments RLE 3+/5 LLE4-/5 M6 PT-IP Treatment Start: 12/13/17 12:10 Freq: NEEDED Status: Active Protocol: Document 12/17/17 12:45 CLB (Rec: 12/17/17 13:19 CLB [id number]) Physical Therapy Treatment Exercises Exercises Ankle Pumps Heel Slides Short Arc Quads M7 PT-IP Assessment and Plan Start: 12/13/17 12:10 Freq: NEEDED Status: Active Protocol: Document 12/17/17 12:45 CLB (Rec: 12/17/17 13:19 CLB [id number]) PT Summary Assessment and Plan Summary Assessment Summary Pt seemed steadier up ambulating but needs cues for pacing for safety. Pt increased gait distance. Goals Bed Mobility Goal Contact Guard Assistance Transfer Goal Contact Guard Assistance Gait Goal Contact Guard Assistance Gait Distance 50 Other Goals up/down 1 step using FWW; ~ 30 steps using R rail ascending CGA Frequency of Treatment Frequency Of Treatment Twice a Day Treatment Plan Physical Therapy Treatment Plan Transfer Training Gait Training Therapeutic Exercise Balance Retraining Other Recommendations and Next Treatment continue gait, R knee Focus exercises, stairs when able. Recommendations To Nursing Amount of Assist Needed 1 Person Assist Discharge Recommendations PT Discharge Recommendations SNF Rehab
[2017-12-18 00:30] VITALS: O2SAT 95
[2017-12-18] MEDS: DEXTROSE 5%-0.9% NS 1,000 ML 75 ML IV (03:58)
[2017-12-18 04:16] VITALS: BP 187/85; PULSE 50; RESP 16; TEMP 36.8; O2SAT 96
[2017-12-18] MEDS: PANTOPRAZOLE 40 MG VIAL IV (04:55)
[2017-12-18] MEDS: methylPREDNISolone 125 MG/2 ML VIAL 60 MG IV (04:57)
[2017-12-18 05:37] LABS: Hematocrit 27.6 % (41-53); Hemoglobin 9.2 g/dL (13.5-17.5); Mean Corpuscular HGB Conc 33.3 % (30-36); Mean Corpuscular Hemoglobin 28.6 PG (26-34); Mean Corpuscular Volume 85.6 fL (80-100); Platelet Count 211 X10^3/uL (150-400); Red Blood Cell Count 3.23 X10^6/uL (4.5-5.9); Red Cell Distribution Width 17.8 % (11.6-14.8); White Blood Cell Count 13.4 X10^3/uL (4.5-11.0)
[2017-12-18 05:41] LABS: Add Manual Diff / Slide Review YES; BUN Creatinine Ratio 33.1 (6-22); Blood Urea Nitrogen 43 mg/dL (9-20); C-Reactive Protein Quant 1.4 mg/dL (<1.0); Calcium 8.5 mg/dL (8.4-10.2); Carbon Dioxide 22 mmol/L (22-32); Chloride 110 mmol/L (98-107); Glucose 168 mg/dL (80-110); HEMOLYSIS < 15 (0-50); Sodium 140 mmol/L (137-145); Uric Acid 4.9 mg/dL (3.5-8.5)
[2017-12-18 06:18] LABS: Erythrocyte Sedimentation Rate 38 MM/HR (0-15)
[2017-12-18 08:16] VITALS: BP 185/71; PULSE 53; RESP 16; TEMP 36.4; O2SAT 96
[2017-12-18 08:27] LABS: Neutrophils Absolute Manual 10988 /uL (3000-5900); Total Cells Counted 100
[2017-12-18 08:28] LABS: Anisocytosis 1+
[2017-12-18 08:30] LABS: Poikilocytosis 1+
--- NOTE | 2017-12-18 08:49 | PM.DS.1 ---
History of Present Illness Chief complaint: pain Narrative: Patient has a known hx of severe gout for some time. He developed particular pain in r knee a cuple mos ago that grew increasingly disabling, to the point were he has spend most of the ensuing mos in bed, ardly able to get to the bath or other ADLs. Has pain diffusely, but sarah in the knee. Wif finally talked him in to being seen, so was brought to office by brother in law, who said it was all they could do to get him out of his bedroom and into the car, did not feel they could do the reverse. Pt feels OK about admission and SNF as needed. Just wants help with the pain and to get backon his feet. Given this admission was required, and feel he is likely to need more than 2 mn staty to get this sorted out and tx underway. Discharge Providers Date of admission: 12/15/17 13:55 Primary care physician: Richard Espino MD Consults: 12/12/17 16:25 Consult to Physical Therapy Evaluate & Treat Comment: pain and genralized weakness Physician Instructions: Evaluate and Treat 12/12/17 16:26 Consult to Occupational Therapy Evaluate & Treat Comment: pain and generalized weakness Physician Instructions: Evaluate and treat 12/12/17 17:49 Consult to Casino Cashier Manager Routine Comment: likely need SNF at d/c 12/16/17 12:13 Consult to Casino Cashier Manager Routine Comment: Anticipating SNF perhaps Monday. Options pls Discharge provider: Andrew Alexandra MD Summary Discharge Diagnosis: See discharge order Hospital Course: Admitted with severe right leg pain and general immobility with profound weakness. Started on oral steroids and more aggressive gout therapy with some benefit but not complete so then switched to IV steroids which allowed a greater level of improvement. Monitored for his renal function and anemia as well as bright blood pressure was some adjustments made to medications. Medically stable at the time of discharge and in need of extended SNF. Status at Discharge Cognitive/behavioral status at discharge: Improved still some tendency for confusion but near baseline. Functional status at discharge: uses cane/walker Overall status at discharge: patient is not back to baseline Time Spent with Patient Greater than 30 minutes Exam Vital Signs (past 8 hours): Vital Signs - 8 hr 12/18/17 04:16 12/18/17 08:16 Temperature 98.3 F 97.6 F Pulse Rate 50 L 53 L Respiratory Rate 16 16 Blood Pressure 187/85 H 185/71 H Pulse Oximetry 96 96 Pulse Oximetry 96 Oxygen Delivery Method Room Air Oxygen Flow Rate 0 Narrative Exam Narrative: Resting comfortably no evident distress moving about more freely when up with assistance. HEENT unremarkable chest is clear heart is regular without murmur abdomen extremities benign except for the right knee which did also some tenderness limited range of motion slightly warm. Neurologically nonfocal Objective Labs Result Diagrams: 12/18/17 04:57 12/18/17 04:57 Labs: Laboratory Results - last 24 hr 12/18/17 12/18/17 04:57 04:57 WBC 13.4 H RBC 3.23 L Hgb 9.2 L Hct 27.6 L MCV 85.6 MCH 28.6 MCHC 33.3 RDW 17.8 H Plt Count 211 Neut % (Auto) Not Reportable Lymph % (Auto) Not Reportable [place] % (Auto) Not Reportable Eos % (Auto) Not Reportable Baso % (Auto) Not Reportable Total Counted 100 Seg Neutrophils % 69.0 Band Neutrophils % 13.0 H Lymphocytes % (Manual) 2.0 L Atypical Lymphs % 6.0 H Monocytes % (Manual) 6.0 Myelocytes % 4.0 H Neutrophils # (Manual) 00775 H Plt Morphology Comment RBC Morphology Not Reportable Poikilocytosis 1+ H Anisocytosis 1+ H ESR 38 H Sodium 140 Potassium 4.0 Chloride 110 H Carbon Dioxide 22 BUN 43 H Creatinine 1.30 H Estimated GFR 53.0 L BUN/Creatinine Ratio 33.1 H Glucose 168 H Uric Acid 4.9 Calcium 8.5 C-Reactive Protein 1.4 H Discharge Plan Discharge Plan Transfer to: [facility] Under care of provider: Katty Espino Transportation: Wheelchair Labs: cbc,bmp,ESR,CRP, in one week Consult as needed: Dental, Hearing, Mental health, Podiatry and Vision I certify the postop hospital usp care is medically necessary on a continuing basis for any conditions for which he/ she received care during this hospitalization.: Yes The receiving facility has agreed to accept transfer and provide medical treatment.: Yes Discharge Med Rec/Prescriptions Prescriptions: New tamsulosin [Flomax] 0.4 mg Capsule,Extended Release 24hr 0.4 mg PO DAILY Qty: 30 RF: 0 prednisone 20 mg Tablet 60 mg PO DAILY Qty: 90 RF: 0 amlodipine [Norvasc] 5 mg Tablet 5 mg PO DAILY Qty: 30 RF: 0 Continue cholecalciferol (vitamin D3) [Vitamin D3] 5,000 unit Tablet 5,000 unit PO DAILY Qty: 0 RF: 0 clopidogrel 75 mg tablet 75 mg PO DAILY RF: 0 sertraline 100 mg tablet 100 mg PO DAILY RF: 0 atorvastatin 20 mg tablet 20 mg PO DAILY RF: 0 febuxostat [Uloric] 40 mg tablet 40 mg PO DAILY RF: 0 pantoprazole [Protonix] 40 mg Tablet,Delayed Release (Dr/Ec) 40 mg PO QAM RF: 0 metoprolol succinate 25 mg tablet extended release 24 hr 25 mg PO QAM RF: 0 Changed colchicine 0.6 mg tablet 0.6 mg PO BID Qty: 0 RF: 0 Discontinued prednisone 20 mg tablet 1 dose PO DIRECTED RF: 0 No Action probenecid 500 mg tablet 500 mg PO DAILY RF: 0 Discharge Orders: Discharge (Order); Ordered 12/18/17 Ordered By: Andrew Alexandra Discharge Health Status Multidrug resistant organism: No MDRO MDRO Verified by culture: Yes Precautions: [place] Provider Discharge Instructions Diet: Diet as Tolerated Liquid consistency: Normal/Thin Food texture: Regular Activity: as tolerated [facility] Rehab type: Physical therapy and Occupational therapy Restrictions to mobility: unsteady Discharge Data Primary Care Provider: Richard Espino Attending Provider: Andrew Alexandra Admit Date/Time: 12/15/17 13:55 Quality VTE Deep Vein Thrombosis/Pulmonary Embolism Present on Admission: No
--- NOTE | 2017-12-18 08:56 | P.DS_ITS ---
History of Present Illness Chief complaint: pain Narrative: Patient has a known hx of severe gout for some time. He developed particular pain in r knee a cuple mos ago that grew increasingly disabling, to the point were he has spend most of the ensuing mos in bed, ardly able to get to the bath or other ADLs. Has pain diffusely, but sarah in the knee. Wif finally talked him in to being seen, so was brought to office by brother in law , who said it was all they could do to get him out of his bedroom and into the car, did not feel they could do the reverse. Pt feels OK about admission and SNF as needed. Just wants help with the pain and to get backon his feet. Given this admission was required, and feel he is likely to need more than 2 mn staty to get this sorted out and tx underway. Discharge Providers Date of admission: 12/15/17 13:55 Primary care physician: Richard Espino MD Consults: 12/12/17 16:25 Consult to Physical Therapy Evaluate & Treat Comment: pain and genralized weakness Physician Instructions: Evaluate and Treat 12/12/17 16:26 Consult to Occupational Therapy Evaluate & Treat Comment: pain and generalized weakness Physician Instructions: Evaluate and treat 12/12/17 17:49 Consult to Hardening Machine Operator Routine Comment: likely need SNF at d/c 12/16/17 12:13 Consult to Hardening Machine Operator Routine Comment: Anticipating SNF perhaps Monday. Options pls Discharge provider: Andrew Alexandra MD Summary Discharge Diagnosis: See discharge order Hospital Course: Admitted with severe right leg pain and general immobility with profound weakness. Started on oral steroids and more aggressive gout therapy with some benefit but not complete so then switched to IV steroids which allowed a greater level of improvement. Monitored for his renal function and anemia as well as bright blood pressure was some adjustments made to medications. Medically stable at the time of discharge and in need of extended SNF. Status at Discharge Cognitive/behavioral status at discharge: Improved still some tendency for confusion but near baseline. Functional status at discharge: uses cane/walker Overall status at discharge: patient is not back to baseline Time Spent with Patient Greater than 30 minutes Exam Vital Signs (past 8 hours): Vital Signs - 8 hr 3 12/18/17 04:16 12/18/17 08:16 Temperature 98.3 F 97.6 F Pulse Rate 50 L 53 L Respiratory Rate 16 16 Blood Pressure 187/85 H 185/71 H Pulse Oximetry 96 96 Pulse Oximetry 96 Oxygen Delivery Method Room Air Oxygen Flow Rate 0 Narrative Exam Narrative: Resting comfortably no evident distress moving about more freely when up with assistance. HEENT unremarkable chest is clear heart is regular without murmur abdomen extremities benign except for the right knee which did also some tenderness limited range of motion slightly warm. Neurologically nonfocal Objective Labs Result Diagrams: 12/18/17 04:57 12/18/17 04:57 Labs: Laboratory Results - last 24 hr 12/18/17 12/18/17 04:57 04:57 WBC 13.4 H RBC 3.23 L Hgb 9.2 L Hct 27.6 L MCV 85.6 MCH 28.6 MCHC 33.3 RDW 17.8 H Plt Count 211 Neut % (Auto) Not Reportable Lymph % (Auto) Not Reportable Cavalier % (Auto) Not Reportable Eos % (Auto) Not Reportable Baso % (Auto) Not Reportable Total Counted 100 Seg Neutrophils % 69.0 Band Neutrophils % 13.0 H Lymphocytes % (Manual) 2.0 L Atypical Lymphs % 6.0 H Monocytes % (Manual) 6.0 Myelocytes % 4.0 H Neutrophils # (Manual) 04630 H Plt Morphology Comment RBC Morphology Not Reportable Poikilocytosis 1+ H Anisocytosis 1+ H ESR 38 H Sodium 140 Potassium 4.0 Chloride 110 H Carbon Dioxide 22 BUN 43 H Creatinine 1.30 H Estimated GFR 53.0 L BUN/Creatinine Ratio 33.1 H Glucose 168 H Uric Acid 4.9 Calcium 8.5 C-Reactive Protein 1.4 H Discharge Plan Discharge Plan Transfer to: [facility] Under care of provider: Katty Espino Transportation: Wheelchair Labs: cbc,bmp,ESR,CRP, in one week Consult as needed: Dental, Hearing, Mental health, Podiatry and Vision I certify the postop hospital longterm care is medically necessary on a continuing basis for any conditions for which he/ she received care during this hospitalization.: Yes The receiving facility has agreed to accept transfer and provide medical treatment.: Yes Discharge Med Rec/Prescriptions Prescriptions: New tamsulosin [Flomax] 0.4 mg Capsule,Extended Release 24hr 0.4 mg PO DAILY Qty: 30 RF: 0 prednisone 20 mg Tablet 60 mg PO DAILY Qty: 90 RF: 0 amlodipine [Norvasc] 5 mg Tablet 5 mg PO DAILY Qty: 30 RF: 0 Continue cholecalciferol (vitamin D3) [Vitamin D3] 5,000 unit Tablet 5,000 unit PO DAILY Qty: 0 RF: 0 clopidogrel 75 mg tablet 75 mg PO DAILY RF: 0 sertraline 100 mg tablet 100 mg PO DAILY RF: 0 atorvastatin 20 mg tablet 20 mg PO DAILY RF: 0 febuxostat [Uloric] 40 mg tablet 40 mg PO DAILY RF: 0 pantoprazole [Protonix] 40 mg Tablet,Delayed Release (Dr/Ec) 40 mg PO QAM RF: 0 metoprolol succinate 25 mg tablet extended release 24 hr 25 mg PO QAM RF: 0 Changed colchicine 0.6 mg tablet 0.6 mg PO BID Qty: 0 RF: 0 Discontinued prednisone 20 mg tablet 1 dose PO DIRECTED RF: 0 No Action probenecid 500 mg tablet 500 mg PO DAILY RF: 0 Discharge Orders: Discharge (Order); Ordered 12/18/17 Ordered By: Andrew Alexandra Discharge Health Status Multidrug resistant organism: No MDRO MDRO Verified by culture: Yes Precautions: [facility] Discharge Instructions Diet: Diet as Tolerated Liquid consistency: Normal/Thin Food texture: Regular Activity: as tolerated [facility] Rehab type: Physical therapy and Occupational therapy Restrictions to mobility: unsteady Discharge Data Primary Care Provider: Richard Espino Attending Provider: Andrew Alexandra Admit Date/Time: 12/15/17 13:55 Quality VTE Deep Vein Thrombosis/Pulmonary Embolism Present on Admission: No
--- NOTE | 2017-12-18 09:51 | PT.IPTN ---
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 (12/15/17) Gout, unspecified (12/15/17) Chronic gout, unspecified, with tophus (tophi) (12/15/17) Pain in unspecified joint (12/15/17) Polymyalgia rheumatica (12/15/17) Myalgia (12/15/17) Chronic kidney disease, stage 3 (moderate) (12/15/17) Benign prostatic hyperplasia with lower urinary tract symptoms (12/15/17) Cardiac murmur, unspecified (12/15/17) Pain, unspecified (12/15/17) Weakness (12/15/17) Elevated erythrocyte sedimentation rate (12/15/17) Elevated C-reactive protein (CRP) (12/15/17) Physical Therapy Treatment Note M2 PT-IP Current Condition Start: 12/13/17 12:10 Freq: NEEDED Status: Active Protocol: Document 12/18/17 09:40 TMS (Rec: 12/18/17 09:51 TMS [id number]) Physical Therapy Current Condition Current Condition Evaluation Date 12/13/17 Treatment Diagnosis R knee pain Onset Date 12/12/17 Weight Bearing Status Weight Bearing Status Weight Bear as Tolerated M3 PT-IP Subjective Start: 12/13/17 12:10 Freq: NEEDED Status: Active Protocol: Document 12/18/17 09:40 TMS (Rec: 12/18/17 09:51 TMS [id number]) Subjective Physical Therapy Visit Type Type Treatment Note Visit Start Time 09:00 Visit Stop Time 09:30 Total Visit Minutes 30 Number of GUTTER MOUTH CUTTER Visits 3 Physical Therapy Visit Comments Patient Comments Pt. reports no pain in right knee this morning at rest or with activity. Planning on SNF today. Therapy Pain Assessment Pain When Pain Assessed At Rest Pain Present Pain Present Denied Pain M4 PT-IP Mobility and Gait Start: 12/13/17 12:10 Freq: NEEDED Status: Active Protocol: Document 12/18/17 09:40 TMS (Rec: 12/18/17 09:51 TMS [id number]) PT-Bed Mobility Assessment Supine to Sit Supine to Sit Contact Guard Assistance Scooting Scooting to Edge of Bed Standby Assistance PT-Transfer Assessment Sit to and From Stand Sit to and from Stand Contact Guard Assistance Equipment Transfer Assistive Device Front Wheeled Walker Orthotic/Prosthetic Devices or Brace: No Comments Mobility Comments Pt. needed cues for safe chair approach, cues for hand placement with sit>stand. Gait Assessment Gait Gait Assistance Required: Contact Guard Assist Distance (Feet) (feet) 260 Able to Maintain Weight Bearing Status Yes During Gait Assistive Devices Assistive Device Gait Belt Front Wheeled Walker Gait Deviations General Gait Pattern Antalgic Decreased Stride Length Narrow Based Gait Factors Limiting Gait Function Factors Limiting Gait Function Decreased Strength Poor Safety Awareness Comments Gait Comments Pt. responded well to cues with gait, complained of right foot weakness after gait. M5 PT-IP Objective Assessments Start: 12/13/17 12:10 Freq: NEEDED Status: Active Protocol: Document 12/13/17 12:11 AB (Rec: 12/13/17 12:21 AB [id number]) Orientation Orientation/Cognition Level of Alertness Alert Orientation Name Place Situation Safety Awareness Decreased Safety Awareness Memory Description Short Term Impaired Detention Impaired Gross Range of Motion Lower Extremity ROM Assessment Bilaterally Impaired Impairments R knee flexion contracture of ~ 30 deg Strength Lower Extremity Strength Assessment Bilaterally Impaired Comments Strength Comments RLE 3+/5 LLE4-/5 M6 PT-IP Treatment Start: 12/13/17 12:10 Freq: NEEDED Status: Active Protocol: Document 12/18/17 09:40 TMS (Rec: 12/18/17 09:51 TMS [id number]) Physical Therapy Treatment Exercises Exercises Ankle Pumps Seated Knee Flexion/Extension Other Treatments Other Treatment Performed Also did sitting marching, isometric gastroc strengthening. M7 PT-IP Assessment and Plan Start: 12/13/17 12:10 Freq: NEEDED Status: Active Protocol: Document 12/18/17 09:40 TMS (Rec: 12/18/17 09:51 TMS [id number]) PT Summary Assessment and Plan Summary Assessment Summary Endurance improving as well as stability with gait. Not ready to return home yet, will benefit from short term SNF stay. Frequency of Treatment Frequency Of Treatment Twice a Day Treatment Plan Physical Therapy Treatment Plan Transfer Training Gait Training Therapeutic Exercise Balance Retraining Other Recommendations and Next Treatment continue gait, R knee Focus exercises, stairs when able. Recommendations To Nursing Amount of Assist Needed 1 Person Assist Discharge Recommendations PT Discharge Recommendations SNF Rehab
[2017-12-18] MEDS: COLCHICINE 0.6 MG TABLET PO (09:59)
[2017-12-18] MEDS: predniSONE 20 MG TABLET 60 MG PO (09:59)
[2017-12-18] MEDS: AMLODIPINE 5 MG TABLET PO (09:59)
[2017-12-18] MEDS: METOPROLOL ER 25 MG TABLET PO (10:00)
[2017-12-18] MEDS: SERTRALINE 50 MG TABLET 100 MG PO (10:00)
[2017-12-18] MEDS: TAMSULOSIN 0.4 MG CAPSULE PO (10:01)
[2017-12-18 10:14] VITALS: O2SAT 97
--- NOTE | 2017-12-18 10:36 | PC.NURSE ---
Addendum entered by Millicent Adnerson R.N. 12/18/17 14:26: Uloric prescription: Spoke with Dr Alexandra, requested he send small # [facility] to [facility] with a larger # script to be sent to [facility]. He agreed he would do both. This functional tester typewriters called to update patient's Twyla re: the same, instructed to call Dr Alexandra's office if there are any further issues or concerns. Original Note: Addendum entered by Millicent Anderson R.N. 12/18/17 12:36: SNF transfer: IV dc'd intact. Report called to Wendi at [facility]. Confirmed with patient's that they will need to fill script for Uloric and provide to [facility] since it's a non-formulary med there also. Anticipate transfer to [facility] at 1300. Up to chair for lunch, alarm on. Original Note: A&O x3. Denies pain in R knee this morning. Denies other complaints. Lungs CTA, HRR. Sitting up in chair now after ambulating halls with PT. Plan is to d/c to [facility] today, awaiting time for transfer. Patient aware of the same and agreeable. Able to make needs known. Light in reach, chair alarm on.
--- NOTE | 2017-12-18 10:44 | CM.DPC ---
Patient to discharge to [facility] today. Met with patient: Patient remains agreeable to [facility]. [facility]/Sana: able to olive picker patient at 1300. RN and patient notified. PASRR completed and faxed to [facility]. Plan: Patient to discharge to [facility] today a 1300.
[2017-12-18] MEDS: CLOPIDOGREL 75 MG TABLET PO (12:33)
== END 2017-12-18 13:00 | DRG 554 ==
PROVIDERS: Admitting Provider Family Medicine; PCP Family Medicine; Visit Provider Family Medicine
DX: M1A.9XX1 Chronic gout, unspecified, with tophus (tophi) (principal); N13.8 Other obstructive and reflux uropathy; M35.3 Polymyalgia rheumatica; G89.29 Other chronic pain; N40.1 Benign prostatic hyperplasia with lower urinary tract symptoms; I25.10 Atherosclerotic heart disease of native coronary artery without angina pectoris; D64.9 Anemia, unspecified; N18.3 Chronic kidney disease, stage 3 (moderate); F32.9 Major depressive disorder, single episode, unspecified; E78.5 Hyperlipidemia, unspecified; R53.1 Weakness
CPT/HCPCS: 36415; 36592; 73562; 80048; 80053; 82607; 82746; 83540; 83550; 84550; 85025; 85651; 86140; 97110; 97116; 97162; 97165; 97530; 97535; G0378; C9113; G0379; J1650; J2930

== ENCOUNTER → 2017-12-22 07:38 | Outpatient (REF) | payer SELFPAY ==
[2017-12-12 16:41] VITALS: BMI 24.5
[2017-12-22 08:42] LABS: Hematocrit 32.1 % (41-53); Hemoglobin 10.8 g/dL (13.5-17.5); Mean Corpuscular HGB Conc 33.6 % (30-36); Mean Corpuscular Hemoglobin 28.7 PG (26-34); Mean Corpuscular Volume 85.3 fL (80-100); Platelet Count 180 X10^3/uL (150-400); Red Blood Cell Count 3.76 X10^6/uL (4.5-5.9); Red Cell Distribution Width 18.4 % (11.6-14.8); White Blood Cell Count 9.4 X10^3/uL (4.5-11.0)
[2017-12-22 08:50] LABS: Add Manual Diff / Slide Review YES
[2017-12-22 09:01] LABS: Alanine Aminotransferase 83 IU/L (21-72); Albumin 2.8 g/dL (3.5-5.0); Alkaline Phosphatase 81 U/L (38-126); Aspartate Aminotransferase 27 IU/L (17-59); BUN Creatinine Ratio 29.2 (6-22); Bilirubin Total 0.4 mg/dL (0.2-1.3); Blood Urea Nitrogen 38 mg/dL (9-20); Calcium 8.5 mg/dL (8.4-10.2); Carbon Dioxide 27 mmol/L (22-32); Chloride 106 mmol/L (98-107); Globulin 2.9 g/dL (1.7-4.1); Glucose 97 mg/dL (80-110); HEMOLYSIS < 15 (0-50); Potassium 3.5 mmol/L (3.4-5.1); Sodium 141 mmol/L (137-145); Total Protein 5.7 g/dL (6.3-8.2)
[2017-12-22 09:49] LABS: Erythrocyte Sedimentation Rate 44 MM/HR (0-15)
[2017-12-22 09:55] LABS: Anisocytosis 2+; Neutrophils Absolute Manual 6580 /uL (3000-5900); Total Cells Counted 100
== END ==
LOC: LAB 07:38
PROVIDERS: PCP Family Medicine; Visit Provider Family Medicine
DX: I10 Essential (primary) hypertension (principal)
CPT/HCPCS: 36415; 80053; 85025; 85651

== ENCOUNTER → 2017-12-25 08:32 | Outpatient (REF) | payer MEDICARE, OTHER, SELFPAY ==
[2017-12-12 16:41] VITALS: BMI 24.5
[2017-12-25 09:27] LABS: Blood Urea Nitrogen 39 mg/dL (9-20); C-Reactive Protein Quant < 0.5 mg/dL (<1.0); Calcium 8.5 mg/dL (8.4-10.2); Carbon Dioxide 29 mmol/L (22-32); Chloride 106 mmol/L (98-107); Estimated Glomerular Filt Rate 44.9 mL/min (>60); Glucose 83 mg/dL (80-110); HEMOLYSIS 31 (0-50); Potassium 3.8 mmol/L (3.4-5.1); Sodium 142 mmol/L (137-145)
[2017-12-25 09:41] LABS: Hematocrit 33.8 % (41-53); Hemoglobin 11.3 g/dL (13.5-17.5); Mean Corpuscular HGB Conc 33.5 % (30-36); Mean Corpuscular Hemoglobin 28.9 PG (26-34); Mean Corpuscular Volume 86.3 fL (80-100); Platelet Count 147 X10^3/uL (150-400); Red Blood Cell Count 3.92 X10^6/uL (4.5-5.9); Red Cell Distribution Width 18.8 % (11.6-14.8); White Blood Cell Count 10.8 X10^3/uL (4.5-11.0)
[2017-12-25 09:51] LABS: Add Manual Diff / Slide Review YES
[2017-12-25 11:22] LABS: Erythrocyte Sedimentation Rate 32 MM/HR (0-15)
[2017-12-25 12:23] LABS: Neutrophils Absolute Manual 7452 /uL (3000-5900); Total Cells Counted 100
[2017-12-25 12:24] LABS: Anisocytosis 1+
== END ==
LOC: LAB 08:32
PROVIDERS: PCP Family Medicine; Visit Provider Family Medicine
DX: D64.9 Anemia, unspecified (principal)
CPT/HCPCS: 36415; 80048; 85025; 85651; 86140

== ENCOUNTER 2018-02-24 12:26 | Observation (INO) | payer MEDICARE, OTHER, SELFPAY ==
[2018-02-24] VITALS (13 sets, daily range): BP systolic 85–144; BP diastolic 40–92; PULSE 55–104; RESP 12–94; TEMP 36.6–36.9; O2SAT 94–100; BMI 23.6
--- NOTE | 2018-02-24 12:50 | DI.RAD.S_ITS ---
PROCEDURE: XR CHEST 1V INDICATIONS: chest pain TECHNIQUE: One view of the chest was acquired. COMPARISON: [facility], , CHEST 2 VIEW, 02/20/2010, 15:45. FINDINGS: Surgical changes and devices: Median sternotomy. Screws within the right humeral head. Lungs and pleura: No pleural effusions or pneumothorax. Lungs are clear. Mediastinum: Mediastinal contours appear normal. Heart size is normal. Bones and chest wall: No suspicious bony lesions. Overlying soft tissues appear unremarkable. IMPRESSION: No acute process. Dictated by: Miguel Angel Gonzalez M.D. on 02/24/2018 at 13:34 Approved by: Miguel Angel Gonzalez M.D. on 02/24/2018 at 13:34
[2018-02-24 12:56] LABS: Add Manual Diff / Slide Review NO; Basophils Percent Auto 0.2 % (0-2); Eosinophils Percent Auto 0.9 % (2-4); Hemoglobin 9.6 g/dL (13.5-17.5); Mean Corpuscular HGB Conc 34.4 % (30-36); Mean Corpuscular Hemoglobin 30.1 PG (26-34); Mean Corpuscular Volume 87.8 fL (80-100); Monocytes Percent Auto 9.3 % (3-14); Neutrophils Absolute Auto 4300 /uL (3000-5900); Neutrophils Percent Auto 67.6 % (50-75); Platelet Count 139 X10^3/uL (150-400); Red Blood Cell Count 3.19 X10^6/uL (4.5-5.9); Red Cell Distribution Width 19.4 % (11.6-14.8); White Blood Cell Count 6.4 X10^3/uL (4.5-11.0)
[2018-02-24 13:07] LABS: Alanine Aminotransferase 72 IU/L (21-72); Albumin 3.3 g/dL (3.5-5.0); Albumin Globulin Ratio 1.1 (1.0-2.8); Alkaline Phosphatase 77 U/L (38-126); Aspartate Aminotransferase 47 IU/L (17-59); BUN Creatinine Ratio 15.6 (6-22); Bilirubin Total 0.5 mg/dL (0.2-1.3); Blood Urea Nitrogen 28 mg/dL (9-20); Calcium 9.1 mg/dL (8.4-10.2); Carbon Dioxide 23 mmol/L (22-32); Chloride 107 mmol/L (98-107); Creatine Kinase 33 U/L (55-170); Estimated Glomerular Filt Rate 36.4 mL/min (>60); Glucose 132 mg/dL (80-110); HEMOLYSIS < 15 (0-50); Lipase 585 U/L (23-300); Potassium 4.4 mmol/L (3.4-5.1); Sodium 141 mmol/L (137-145); Total Protein 6.3 g/dL (6.3-8.2)
[2018-02-24 13:19] LABS: Troponin I 0.023 ng/mL (0.01-0.034)
--- NOTE | 2018-02-24 13:34 | DI.CT.S_ITS ---
PROCEDURE: CT ANGIO CHEST ABDOMEN PELVIS INDICATIONS: hypotensive s/p syncope w/ hx c/w AAA TECHNIQUE: Precontrast 5 mm thick sections acquired from the lung apices to the iliac crests. After the administration of intravenous contrast, 2.5 mm thick sections again acquired from the lung apices to the iliac crests. Maximum intensity projection (MIP) oblique sagittal and coronal reformats were then acquired. For radiation dose reduction, the following was used: automated exposure control. COMPARISON: [facility], CT, CHEST/ABD/PEL WITHOUT CONTRAST, 06/19/2017, 15:54. FINDINGS: Image quality: Excellent. AORTA: No evidence of aortic dissection nor significant stenosis. There is mild focal aneurysmal dilatation of the infrarenal abdominal aorta measuring 31 mm. CHEST: Lungs and pleura: No acute airspace opacities. No pleural effusions or pneumothorax. Central and peripheral airways are patent and normal in caliber. Mediastinum: Heart size is normal. Calcification of the coronary vasculature is present. No pericardial effusion. No mediastinal or hilar adenopathy by size criteria. Central pulmonary arteries are normal in size. Esophagus is normal in caliber. No hiatal hernias. Bones and chest wall: Median sternotomy. No axillary adenopathy by size criteria. Thyroid gland is grossly unremarkable. No suspicious bony lesions. No vertebral body compression fractures. ABDOMEN: Vasculature: Celiac trunk and mesenteric arteries are patent. Renal arteries are also patent. Solid organs: Liver is normal in size and enhancement. Gallbladder is grossly unremarkable. Biliary system is non dilated. Pancreas enhances normally. Spleen is normal in size and enhancement. No adrenal nodules. Both kidneys are normal in size and enhancement, without hydronephrosis. No change in bilateral nonobstructing renal calcifications. Peritoneum and bowel: No free fluid or air. Bowel loops are normal in caliber and wall thickness. Normal appendix. Nodes and vessels: No retroperitoneal or mesenteric adenopathy by size criteria. Inferior vena cava is normal in morphology. Miscellaneous: No ventral hernias. PELVIS: Genitourinary: Bladder wall thickness is normal. Miscellaneous: No inguinal hernias or adenopathy. No ventral hernias. Bones: No suspicious bony lesions. No vertebral body compression fractures. IMPRESSION: 1. No evidence of acute process. 2. Mild aneurysmal dilatation of the infrarenal abdominal aorta; annual sonographic surveillance recommended. 3. Coronary artery disease. 4. No change in bilateral nonobstructing renal calcifications. Dictated by: Miguel Angel Gonzalez M.D. on 02/24/2018 at 14:55 Approved by: Miguel Angel Gonzalez M.D. on 02/24/2018 at 14:58
[2018-02-24] MEDS: SODIUM CHLORIDE 0.9% 1,000 ML 1000 ML IV (13:37)
[2018-02-24 13:49] LABS: PTT Partial Thromboplastin Tim 25 SECONDS (26.4-36.2)
[2018-02-24 14:06] LABS: INR 1.1 (0.9-1.3); Prothrombin Time 11.9 SECONDS (10.1-12.7)
--- NOTE | 2018-02-24 16:31 | DI.CT.S_ITS ---
PROCEDURE: CT HEAD/BRAIN WO CON INDICATIONS: ? Normal pressure hydrocephalus TECHNIQUE: Noncontrast 4.5 mm thick angled axial sections acquired from the foramen magnum to the vertex, with coronal and sagittal reformats. For radiation dose reduction, the following was used: automated exposure control, adjustment of mA and/or kV according to patient size. COMPARISON: [facility], CT, HEAD WITHOUT CONTRAST, 08/10/2014, 14:16. FINDINGS: Image quality: Excellent. CSF spaces: Basal cisterns are patent. No extra-axial fluid collections. The ventricles are symmetric in size and shape. Brain: No intracranial bleeds or masses. There is a new chronic versus subacute left parietal infarct measuring 45 mm. There is cerebral volume loss for age, with resultant ventricular and sulcal prominence. There are periventricular and deep white matter chronic small vessel ischemic changes. There is intracranial internal carotid artery atherosclerosis. Skull and face: Calvarium and visualized facial bones appear intact, without suspicious lesions. Sinuses: Visualized sinuses and mastoids are clear. IMPRESSION: 1. No acute intracranial abnormality. No evidence of hydrocephalus. 2. 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 Dictated by: Miguel Angel Gonzalez M.D. on 02/24/2018 at 17:04 Approved by: Miguel Angel Gonzalez M.D. on 02/24/2018 at 17:05
--- NOTE | 2018-02-24 16:33 | ED.SYNCOPE ---
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 Patient denies symptomatology at the present time, denies preceding chest pain, shortness breath, abdominal pain, headache, changes in vision or hearing, or neck pain. * Denies chest pain, shortness of breath, double vision, neck pain, vertigo, headache, arm pain, arm paresthesias, arm numbness, or focal weakness or sensory at change now or the time of their event. * Denies recent chiropractic manipulation of their neck, neck trauma or strains. * Denies a history of seizures. No incontinence today, denies post-syncope confusion. M/S/F/SocHx notable for: please see HPI; remainder reviewed with patient and in chart. ROS: Negative constitutional, eye, cardiovascular, pulmonary, GI, , MSK, skin, neurologic, psychiatric, endocrine unless noted in the HPI. Exam HR 57, BP 85/43, RR 12, T 98.3 ?F, SaO2 94 % on room air. Gen: Pleasant, non-toxic appearing, resting comfortably. HEENT: NC, AT, PEERL, EOMI. Resp: Clear to auscultation bilaterally with a normal work of breathing and no accessory muscle usage. Card: Regular rate and rhythm with no murmurs rubs or gallops, extremities are warm and well perfused, no JVD. GI: Nontender to palpation throughout all quadrants, nondistended : Deferred MSK: No visible deformities, strength and tone WNL. Skin: Normal color with no visible lesions. Neuro: Gen AO x 3, no facial asymmetry, no gaze preference, no slurring of speech. Pupils equal and reactive, EOMI, no facial asymmetry, no nystagmus, phonation intact, SCM 5/5 bilaterally. Cerebellar: bilateral upper extremities without dysmetria. Psych: Mood and affect appropriate. Labs / Imaging (pertinent): WBC 6.4, Hb 9.6, Na 141, K 4.4, total bilirubin 0.5, AST 47, ALT 72, alkaline phosphatase 77, lipase 585, troponin 0.023 EKG: SR at [address]-segment elevations or depressions, T-wave inversions or new LBBB. TN interval 146 msec, QTc 433 msec, no delta waves, epsilon waves, coved or saddle ST-segment changes in leads V1-3, preseptal or inferior lead Q-waves, biphasic P-waves, or T-wave inversions; no LVH. Multiple PACs present. CXR: no acute disease process. CTA chest/abdomen/pelvis: no evidence of acute process. Mild aneurysmal dilatation of the infrarenal abdominal aortic; annual sonographic surveillance recommended. CAD. No change in bilateral nonobstructing renal calcifications. MDM Previous chart, nursing note, and vitals reviewed. 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 DDx and evaluation: * Anemia - Hemoglobin clinically within acceptable limits. * Cardiac - history consistent with an arrhythmia, however EKG, labs, and history without evidence of ACS, AV-block, WPW syndrome, Brugada syndrome, HCM, Long or Short QT-syndrome, or arrhythmogenic RV dysplasia. Heart sounds WNL on exam, no evidence of valvular abnormalities by history or auscultation. * Obstructive - Doubt PE, tamponade, or pulmonary hypertension based upon lack of shortness of breath, chest pain, or historical risk factors on history and the absence of hypoxemia, tachycardia, hypotension, or JVD on exam. * Vascular - As there are no identifiable risk factors on history (injury risk factors, vertiginous symptoms, diplopia, vision changes, TIA risk factors or prior similar events) further evaluation of a possible vertebrobasilar insufficiency. Furthermore, as the patient denies neck pain, recent neck trauma, and there is no evidence of a partial Crow's syndrome, a carotid or vertebral dissection is felt to be unlikely and imaging is not indicated. Similarly, the absence of focal arm symptoms and symmetric perfusion of the upper extremities effectively excludes emergent evaluation of any possible subclavian steal syndrome. Lastly, given the absence of chest pain aortic dissection further evaluation of any possible dissection is not warranted. * Electrolyte - Electrolytes clinically within normal limits. * Hypotension (hypovolemia vs vasovagal vs autonomic instability) - patient mildly symptomatic with orthostatic maneuvers. 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 * Seizure - given the absence of reported seizure history and a presentation today atypical for a seizure strongly doubt that this was the cause of the patient's event. * AAA - patient with suspected abdominal aortic abnormalities, CTA chest abdomen and pelvis without acute pathology. * Dehydration - patient with consistently worsening renal function, creatinine 1.80 on today's evaluation, 1.50 on 12/25, 1.3 on 12/22. Moderately symptomatic orthostatics. Patient given 1 L normal saline. * Other - patient's family noted a concern raised by the patient's PCP of possible indolent NPH, CT requested, this was ordered and pending at time of admission. Disposition: admitted to Dr. Kohli for cardiac monitoring given the patient's 15 minute long syncopal/presyncopal event followed by extended hypotension. Impression: syncope/presyncope (please reference below for remainder of encounter information) Related Data Home Medications Medication Instructions Recorded Confirmed cholecalciferol (vitamin D3) 5,000 unit PO DAILY #0 06/23/17 02/24/18 [Vitamin D3] atorvastatin 20 mg PO DAILY 12/12/17 02/24/18 clopidogrel 75 mg PO DAILY 12/12/17 02/24/18 sertraline 100 mg PO DAILY 12/12/17 02/24/18 pantoprazole [Protonix] 40 mg PO QAM 12/13/17 02/24/18 metoprolol succinate 25 mg PO QAM 12/14/17 02/24/18 Lactobacillus acidophilus 1 cap PO DAILY 02/24/18 02/24/18 [Probiotic] amlodipine [Norvasc] 10 mg PO DAILY 02/24/18 02/24/18 febuxostat [Uloric] 40 mg PO DAILY 02/24/18 02/24/18 Previous Rx's Medication Instructions Recorded colchicine 0.6 mg PO BID #0 tab 12/18/17 tamsulosin [Flomax] 0.4 mg PO DAILY #30 cap 12/18/17 Allergies Allergy/AdvReac Type Severity Reaction Status Date / Time No Known Drug Allergies Allergy Verified 02/24/18 12:34 PFSH Medical History Gout (Acute) Gouty tophi (Acute) Anemia (Acute) Chronic renal failure, stage 3 (moderate) (Acute) Chronic pain (Acute) Coronary artery disease (Acute) Depression (Acute) Hyperlipidemia (Acute) Polymyalgia rheumatica (Acute) Systolic murmur (Acute) Social History household members: spouse Smoking Status: Never smoker alcohol intake: current Exam Initial Vital Signs Initial Vital Signs: Vital Signs Pulse Rate 71 02/24/18 12:34 Respiratory Rate 14 02/24/18 12:34 Blood Pressure 104/68 02/24/18 12:34 Pulse Oximetry 99 02/24/18 12:34 Course Orders Ordered: ED Orders 02/24/18 12:45 Complete Blood Count AUTO DIFF Stat Comprehensive Metabolic Panel Stat Lipase Stat Partial Thromboplastin Time Stat Prothrombin Time INR Stat Troponin & CK Cardiac Panel Stat 02/24/18 12:50 XR chest 1V Stat EKG-12 Lead Stat 02/24/18 13:34 CT angio chest abdomen pelvis Stat 02/24/18 16:31 CT head/brain wo con Stat Discontinued Medications Sodium Chloride (Normal Saline 0.9%) 1,000 mls @ 1,000 mls/hr IV BOLUS ONE Stop: 02/24/18 14:33 Last Infusion: 02/24/18 16:23 Dose: 0 mls/hr Admin: 02/24/18 13:37 Dose: 1,000 mls/hr Vital Signs - 8 hr 02/24/18 12:34 02/24/18 12:57 02/24/18 13:16 Pulse Rate 71 71 70 Pulse Rate [Orthostatic Lying] 72 Pulse Rate [Orthostatic Sitting] 78 Pulse Rate [Orthostatic Standing] 88 Respiratory Rate 14 14 94 H Blood Pressure 104/68 Blood Pressure [Orthostatic Lying] 90/61 Blood Pressure [Orthostatic Sitting] 91/46 L Blood Pressure [Orthostatic Standing] 92/41 L Blood Pressure [Right Arm] 109/43 L 85/43 L Pulse Oximetry 99 96 94 02/24/18 13:23 02/24/18 14:36 02/24/18 14:45 Pulse Rate 70 75 78 Pulse Rate [Orthostatic Lying] Pulse Rate [Orthostatic Sitting] Pulse Rate [Orthostatic Standing] Respiratory Rate 12 14 16 Blood Pressure Blood Pressure [Orthostatic Lying] Blood Pressure [Orthostatic Sitting] Blood Pressure [Orthostatic Standing] Blood Pressure [Right Arm] 89/40 L 124/72 H 119/57 L Pulse Oximetry 94 99 02/24/18 15:07 02/24/18 16:32 Pulse Rate 67 70 Pulse Rate [Orthostatic Lying] Pulse Rate [Orthostatic Sitting] Pulse Rate [Orthostatic Standing] Respiratory Rate 12 14 Blood Pressure Blood Pressure [Orthostatic Lying] Blood Pressure [Orthostatic Sitting] Blood Pressure [Orthostatic Standing] Blood Pressure [Right Arm] 122/75 H 122/90 H Pulse Oximetry 100 96 MDM - Syncope Lab Data Result diagrams: 02/24/18 12:45 02/24/18 12:45 Lab Results 02/24/18 02/24/18 02/24/18 Range/Units 12:45 12:45 12:45 WBC 6.4 (4.5-11.0) X10^3/uL RBC 3.19 L (4.5-5.9) X10^6/uL Hgb 9.6 L (13.5-17.5) g/dL Hct 28.0 L (41-53) % MCV 87.8 (80-100) fL MCH 30.1 (26-34) PG MCHC 34.4 (30-36) % RDW 19.4 H (11.6-14.8) % Plt Count 139 L (150-400) X10^3/uL Neut % (Auto) 67.6 (50-75) % Lymph % (Auto) 22.0 L (25-40) % [place] % (Auto) 9.3 (3-14) % Eos % (Auto) 0.9 L (2-4) % Baso % (Auto) 0.2 (0-2) % Neut # (Auto) 4300 (6192-9921) /uL PT 11.9 (10.1-12.7) SECONDS INR 1.1 (0.9-1.3) APTT 25 L (26.4-36.2) SECONDS Sodium 141 (137-145) mmol/L Potassium 4.4 (3.4-5.1) mmol/L Chloride 107 (98-107) mmol/L Carbon Dioxide 23 (22-32) mmol/L BUN 28 H (9-20) mg/dL Creatinine 1.80 H (0.66-1.25) mg/dL Estimated GFR 36.4 L (>60) mL/min BUN/Creatinine Ratio 15.6 (6-22) Glucose 132 H (80-110) mg/dL Calcium 9.1 (8.4-10.2) mg/dL Total Bilirubin 0.5 (0.2-1.3) mg/dL AST 47 (17-59) IU/L ALT 72 (21-72) IU/L Alkaline Phosphatase 77 (38-126) U/L Total Creatine Kinase 33 L (55-170) U/L Troponin I 0.023 (0.01-0.034) ng/mL Total Protein 6.3 (6.3-8.2) g/dL Albumin 3.3 L (3.5-5.0) g/dL Globulin 3.0 (1.7-4.1) g/dL Albumin/Globulin Ratio 1.1 (1.0-2.8) Lipase 585 H (23-300) U/L Discharge Plan Departure Prescriptions: No Action cholecalciferol (vitamin D3) [Vitamin D3] 5,000 unit Tablet 5,000 unit PO DAILY Qty: 0 RF: 0 clopidogrel 75 mg tablet 75 mg PO DAILY RF: 0 sertraline 100 mg tablet 100 mg PO DAILY RF: 0 atorvastatin 20 mg tablet 20 mg PO DAILY RF: 0 pantoprazole [Protonix] 40 mg Tablet,Delayed Release (Dr/Ec) 40 mg PO QAM RF: 0 metoprolol succinate 25 mg tablet extended release 24 hr 25 mg PO QAM RF: 0 tamsulosin [Flomax] 0.4 mg Capsule,Extended Release 24hr 0.4 mg PO DAILY Qty: 30 RF: 0 colchicine 0.6 mg tablet 0.6 mg PO BID Qty: 0 RF: 0 febuxostat [Uloric] 40 mg Tablet 40 mg PO DAILY RF: 0 Lactobacillus acidophilus [Probiotic] 10 billion cell Capsule 1 cap PO DAILY RF: 0 amlodipine [Norvasc] 5 mg tablet 10 mg PO DAILY RF: 0
--- NOTE | 2018-02-24 19:45 | PC.NURSE ---
Pt has bandaid to left great toe upon admission. Pt reports has provided own care to an ingrown toenail. Pt requests staff not remove this dressing and so request was honored. 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 Mentation and conversation is appropriate other than pt cannot recall year. Requires three guesses to name month, but is spot on with date citing, my brother's birthday is tomorrow. Denies any focal weakness of extremities and is able to feed self, swallow safely and follow commands and directions appropriately. Dr. Kohli was made aware by telephone by this newswriter pt is up on floor. MD states will be in to see patient this evening shift.
--- NOTE | 2018-02-24 20:56 | P.HP_ITS ---
History of Present Illness Date Patient Seen: 02/24/18 Time Patient Seen: 20:46 Chief complaint: PASSED OUT/ HARD TIME COMUNICATING AT TIMES Narrative: Patient is an 82-year-old male patient of Dr. Espino well known to me who presents with syncopal episode. Parent Madelyn patient was overall feeling well. Had been up and ambulating and feels as if he had been drinking enough fluids. He was having lunch with his son feeling fine when he had an episode where he slumped to the side and was semi and nonresponsive. Was nonfocal. Slowly came back to his usual self. He does not have any palpitations chest pain abdominal pain headaches visual symptoms or other changes. By the time he got to the emergency room 1 hr later he was completely back to his normal self. No other significant change. Patient has been feeling well. Has recently been discharged from the hospital secondary to his gout. Does have a history of coronary artery disease but feels as if things have been stable. Has a history of hypertension but apparently that has been well controlled and really has no significant other change or complaint Patient has not had any cough fevers chills abdominal pain change in his bowel movements change in his urine. He has had no skin changes. And otherwise has been doing well. Sometimes he does notice some balance issues he is not sure if it is related to his gout. His gout has been better controlled. 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 Has supportive family in town. Safety & Behavioral: Feels Safe in Current Yes Environment Been Physically Hurt or No Threatened By a Person Suicidal Ideation Description None Tobacco & Substance use: Smoking Status Never smoker alcohol intake current alcohol intake frequency a few times a month Substance Use Type does not use Meds Home Medications Medication Instructions Recorded Confirmed Type cholecalciferol (vitamin D3) 5,000 unit PO DAILY #0 06/23/17 02/24/18 History [Vitamin D3] atorvastatin 20 mg PO DAILY 12/12/17 02/24/18 History clopidogrel 75 mg PO DAILY 12/12/17 02/24/18 History sertraline 100 mg PO DAILY 12/12/17 02/24/18 History pantoprazole [Protonix] 40 mg PO QAM 12/13/17 02/24/18 History metoprolol succinate 25 mg PO QAM 12/14/17 02/24/18 History colchicine 0.6 mg PO BID #0 tab 12/18/17 02/24/18 Rx tamsulosin [Flomax] 0.4 mg PO DAILY #30 cap 12/18/17 02/24/18 Rx Lactobacillus acidophilus 1 cap PO DAILY 02/24/18 02/24/18 History [Probiotic] amlodipine [Norvasc] 10 mg PO DAILY 02/24/18 02/24/18 History febuxostat [Uloric] 40 mg PO DAILY 02/24/18 02/24/18 History Allergies Allergy/AdvReac Type Severity Reaction Status Date / Time No Known Drug Allergies Allergy Verified 02/24/18 12:34 Review of Systems Review of Systems All systems reviewed & are unremarkable except as noted in HPI and below Exam Vital Signs (past 8 hours): - 02/24/18 12:57 02/24/18 13:16 02/24/18 13:23 Temperature Pulse Rate 71 70 70 Pulse Rate [Orthostatic Lying] 72 Pulse Rate [Orthostatic Sitting] 78 Pulse Rate [Orthostatic Standing] 88 Respiratory Rate 14 94 H 12 Blood Pressure Blood Pressure [Orthostatic Lying] 90/61 Blood Pressure [Orthostatic Sitting] 91/46 L Blood Pressure [Orthostatic Standing] 92/41 L Blood Pressure [Right Arm] 109/43 L 85/43 L 89/40 L Pulse Oximetry 96 94 94 02/24/18 14:36 02/24/18 14:45 02/24/18 15:07 Temperature Pulse Rate 75 78 67 Pulse Rate [Orthostatic Lying] Pulse Rate [Orthostatic Sitting] Pulse Rate [Orthostatic Standing] Respiratory Rate 14 16 12 Blood Pressure Blood Pressure [Orthostatic Lying] Blood Pressure [Orthostatic Sitting] Blood Pressure [Orthostatic Standing] Blood Pressure [Right Arm] 124/72 H 119/57 L 122/75 H Pulse Oximetry 99 100 02/24/18 16:32 02/24/18 17:30 02/24/18 19:12 Temperature 97.8 F Pulse Rate 70 55 L Pulse Rate [Orthostatic Lying] 62 Pulse Rate [Orthostatic Sitting] 89 Pulse Rate [Orthostatic Standing] 104 H Respiratory Rate 14 20 Blood Pressure 144/62 H Blood Pressure [Orthostatic Lying] 116/51 L Blood Pressure [Orthostatic Sitting] 123/62 H Blood Pressure [Orthostatic Standing] 142/92 H Blood Pressure [Right Arm] 122/90 H Pulse Oximetry 96 99 02/24/18 19:51 Temperature 98.2 F Pulse Rate 62 Pulse Rate [Orthostatic Lying] Pulse Rate [Orthostatic Sitting] Pulse Rate [Orthostatic Standing] Respiratory Rate 18 Blood Pressure 116/51 L Blood Pressure [Orthostatic Lying] Blood Pressure [Orthostatic Sitting] Blood Pressure [Orthostatic Standing] Blood Pressure [Right Arm] Pulse Oximetry 97 Oxygen Delivery Method Room Air Narrative Exam Narrative: Alert elderly male in no acute distress interactive appropriate Right eye was sub scleral hematoma. Pupils are equal and sponsor light. EOMIs intact. Head is nontraumatic. Oral mucosa is normal. Neck is supple without adenopathy. No thyromegaly no masses. Lungs are clear. Heart regular rate and rhythm without murmurs clicks rubs or gallops. Abdomen is soft positive bowel sounds nontender. Extremities without cyanosis clubbing edema. He does have gouty tophi in his hands and see any other active gout. Neurologic exam cranial nerves 2-12 were intact reflexes are 2+ and symmetric motor is 5/5. He is emotionally intact appears to be interactive and appropriate Objective Labs Result Diagrams: 02/24/18 12:45 02/24/18 12:45 Labs: Laboratory Results - last 24 hr 02/24/18 02/24/18 02/24/18 12:45 12:45 12:45 WBC 6.4 RBC 3.19 L Hgb 9.6 L Hct 28.0 L MCV 87.8 MCH 30.1 MCHC 34.4 RDW 19.4 H Plt Count 139 L Neut % (Auto) 67.6 Lymph % (Auto) 22.0 L [place] % (Auto) 9.3 Eos % (Auto) 0.9 L Baso % (Auto) 0.2 Neut # (Auto) 4300 PT 11.9 INR 1.1 APTT 25 L Sodium 141 Potassium 4.4 Chloride 107 Carbon Dioxide 23 BUN 28 H Creatinine 1.80 H Estimated GFR 36.4 L BUN/Creatinine Ratio 15.6 Glucose 132 H Calcium 9.1 Total Bilirubin 0.5 AST 47 ALT 72 Alkaline Phosphatase 77 Total Creatine Kinase 33 L Troponin I 0.023 Total Protein 6.3 Albumin 3.3 L Globulin 3.0 Albumin/Globulin Ratio 1.1 Lipase 585 H EKG shows no acute changes. CT scan of head abdomen and pelvis show previously known AAA disease but nothing significant. Chest x-ray is negative. Assessment & Plan Plan: Assessment/Plan Narrative: Syncopal episode. Etiology is unclear may be dehydration. No definitive reason for that. Certainly no neurologic changes or cardiac changes. Workup otherwise negative. Will hydrate tonight and re-evaluate in a.m.. Probably home tomorrow. Monitor for cardiac to make sure were not missing an arrhythmia. Renal failure acute on chronic. Probably dehydration but we will see. Responsive to fluids recheck in a.m.. Elevated lipase. The etiology is unclear certainly no symptomatic will obtain repeat lipase in the a.m.. Hypertension. Will hold Norvasc for now with his dehydration and lower blood pressure. Will continue beta-gabby and re-evaluate in a.m.. May go home without Norvasc for now. Anemia. Patient has previously been anemic. There does not appear to be any bleeding. We will guaiac stool. Code status full code. Depression. Seems to be well tolerated at this time. No change in medication. Gout. Currently appears to be minimally symptomatic. Will follow. Disposition. Observation for the night. Must some changes go home tomorrow depending on multiple lab evaluations. Patient understands questions answered. Quality VTE Deep Vein Thrombosis/Pulmonary Embolism Present on Admission: No
[2018-02-24] MEDS: SODIUM CHLORIDE 0.45% 1,000 ML 100 ML IV (21:52)
[2018-02-24] MEDS: COLCHICINE 0.6 MG TABLET PO (21:56)
[2018-02-24] MEDS: SODIUM CHLORIDE 0.9% FLUSH 10 ML IV (22:47)
[2018-02-25 04:00] VITALS: BP 141/78; PULSE 90; RESP 16; TEMP 36.3; O2SAT 98
[2018-02-25 05:42] LABS: Lipase 727 U/L (23-300)
[2018-02-25 05:45] LABS: Alanine Aminotransferase 59 IU/L (21-72); Albumin 2.8 g/dL (3.5-5.0); Alkaline Phosphatase 75 U/L (38-126); Aspartate Aminotransferase 39 IU/L (17-59); BUN Creatinine Ratio 16.9 (6-22); Bilirubin Total 0.3 mg/dL (0.2-1.3); Blood Urea Nitrogen 27 mg/dL (9-20); Calcium 8.8 mg/dL (8.4-10.2); Carbon Dioxide 23 mmol/L (22-32); Chloride 110 mmol/L (98-107); Estimated Glomerular Filt Rate 41.7 mL/min (>60); Globulin 2.7 g/dL (1.7-4.1); Glucose 86 mg/dL (80-110); HEMOLYSIS < 15 (0-50); Potassium 4.2 mmol/L (3.4-5.1); Sodium 141 mmol/L (137-145); Total Protein 5.5 g/dL (6.3-8.2)
[2018-02-25 07:21] VITALS: BP 127/55; PULSE 53; RESP 19; TEMP 36.8; O2SAT 98
[2018-02-25 07:40] VITALS: O2SAT 98
--- NOTE | 2018-02-25 09:19 | CM.DANOTE ---
DCP: Case received, EMR reviewed and met with patient. Introduced self and role. DCP template completed with information currently available. Patient is an 82 year old male who admitted yesterday afternoon to the care of the hospitalist team. PCP: Dr. Espino. Payer: confirmed: Medicare/[facility]. Patient carries diagnosis of dehydration. Came in with symptoms of syncope, weakness. Had been at an air show eating with son, when he became nauseas and weak. Patient has support of , but currently is living at [facility], for his stated he is getting physical and occupational therapy there, and they have stairs in the home which is difficult for him to navigate. He also has history of gout, which has also affected his mobility. is hoping that patient will only have to be at [facility] for a couple of months. P: To discharge back to [facility]. stated that they will be able to transport. Melanie Cabrales RN/[employer]
[2018-02-25] MEDS: CLOPIDOGREL 75 MG TABLET PO (09:25)
[2018-02-25] MEDS: METOPROLOL ER 25 MG TABLET PO (09:25)
[2018-02-25] MEDS: CHOLECALCIFEROL (VITAMIN D3) 5,000 UNIT TABLET 5000 UNIT PO (09:26)
[2018-02-25] MEDS: COLCHICINE 0.6 MG TABLET PO (09:26)
[2018-02-25] MEDS: TAMSULOSIN 0.4 MG CAPSULE PO (09:26)
[2018-02-25] MEDS: ENOXAPARIN 40 MG/0.4 ML SYRINGE SUBCUT (09:26)
[2018-02-25] MEDS: PANTOPRAZOLE 40 MG TABLET PO (09:26)
[2018-02-25] MEDS: SERTRALINE 50 MG TABLET 100 MG PO (09:27)
[2018-02-25] MEDS: ATORVASTATIN 20 MG TABLET PO (09:27)
[2018-02-25] MEDS: SODIUM CHLORIDE 0.45% 1,000 ML 100 ML IV (09:40)
--- NOTE | 2018-02-25 10:30 | PM.DS.1 ---
History of Present Illness Date Patient Seen: 02/25/18 Time Patient Seen: 10:30 Chief complaint: PASSED OUT/ HARD TIME COMUNICATING AT TIMES Narrative: Patient is an 82-year-old male patient of Dr. Espino well known to me who presents with syncopal episode. Parent Madelyn patient was overall feeling well. Had been up and ambulating and feels as if he had been drinking enough fluids. He was having lunch with his son feeling fine when he had an episode where he slumped to the side and was semi and nonresponsive. Was nonfocal. Slowly came back to his usual self. He does not have any palpitations chest pain abdominal pain headaches visual symptoms or other changes. By the time he got to the emergency room 1 hr later he was completely back to his normal self. No other significant change. Patient has been feeling well. Has recently been discharged from the hospital secondary to his gout. Does have a history of coronary artery disease but feels as if things have been stable. Has a history of hypertension but apparently that has been well controlled and really has no significant other change or complaint Patient has not had any cough fevers chills abdominal pain change in his bowel movements change in his urine. He has had no skin changes. And otherwise has been doing well. Sometimes he does notice some balance issues he is not sure if it is related to his gout. His gout has been better controlled. Past medical history Hypertension Gout Coronary artery disease Discharge Providers Date of admission: 02/24/18 16:41 Primary care physician: Richard Espino MD Consults: 02/24/18 17:50 Consult to Dietitian, Adult Routine Comment: Reason For Exam: assessed at high risk 02/24/18 17:51 Consult to Hospital Clinic Assistant Routine Comment: from [facility]/assess d/c needs Discharge provider: Clint Kohli MD Summary Discharge Diagnosis: Syncopal episode Renal failure acute on chronic Dehydration Elevated lipase Hypertension Anemia Depression Gout Hospital Course: Syncopal episode. Patient was admitted. [place] well. Blood pressure was mildly decreased and fluids were given. Tele remained stable. Had no episodes of syncope or other changes. Was feeling well on day of discharge. Suspect this was a combination of low blood pressure and dehydration. No definitive other finding. Imaging was normal. Patient will be discharged to home with follow-up with Dr. Espino this week. Dehydration. Mild. Rehydrated. Looks good today. Feeling better. Will have push fluids. Elevated lipase. Etiology is unclear. Mildly more elevated today. Still patient is asymptomatic. Would like to go home. I think we can do this as an outpatient. Will repeat labs on Monday when he sees Dr. Espino. If he has more pain vomiting or other changes to call me immediately and we will re-evaluate. He understands. Questions answered. Hypertension. I think we will discontinue Norvasc may have been part of the problem was his blood pressure was low. We will continue his beta gabby but hold his Norvasc and follow from there. Anemia. Awaiting labs from this morning. No evidence of bleeding. Patient has a history of this in the past. We will see how it goes. Depending on repeat labs today should be safe to go home and follow up as an outpatient. Depression. Stable. Gout. Really symptomatic leave the most important thing he has. He seems to be doing okay at this time. Will follow. No intervention at this time. Patient overall is much improved. Feeling better. Appetite is better. I suspected combination of his blood pressure and mild dehydration at this point will discharge and follow up.Assessment/Plan Narrative: Status at Discharge Cognitive/behavioral status at discharge: Awake alert and stable Functional status at discharge: uses cane/walker Overall status at discharge: patient is back to baseline Time Spent with Patient Greater than 30 minutes Exam Vital Signs (past 8 hours): - 02/25/18 04:00 02/25/18 07:21 Temperature 97.3 F L 98.2 F Pulse Rate 90 53 L Respiratory Rate 16 19 Blood Pressure 141/78 H 127/55 H Pulse Oximetry 98 98 Oxygen Delivery Method Room Air Narrative Exam Narrative: Alert elderly male in no acute distress Conjunctivae are pink. Mucous membranes moist. Neck is supple without adenopathy. Lungs are clear. Heart regular rate and rhythm. No murmurs clicks rubs or gallops. Abdomen is soft positive bowel sounds completely nontender. No pedis be no megaly no masses. Extremities without cyanosis clubbing edema. Neurologic exam nonfocal unremarkable. Psychologically appropriate much more alert today. Objective Labs Result Diagrams: 02/24/18 12:45 02/25/18 05:15 Labs: Laboratory Results - last 24 hr 02/24/18 02/24/18 02/24/18 12:45 12:45 12:45 WBC 6.4 RBC 3.19 L Hgb 9.6 L Hct 28.0 L MCV 87.8 MCH 30.1 MCHC 34.4 RDW 19.4 H Plt Count 139 L Neut % (Auto) 67.6 Lymph % (Auto) 22.0 L [place] % (Auto) 9.3 Eos % (Auto) 0.9 L Baso % (Auto) 0.2 Neut # (Auto) 4300 PT 11.9 INR 1.1 APTT 25 L Sodium 141 Potassium 4.4 Chloride 107 Carbon Dioxide 23 BUN 28 H Creatinine 1.80 H Estimated GFR 36.4 L BUN/Creatinine Ratio 15.6 Glucose 132 H Calcium 9.1 Total Bilirubin 0.5 AST 47 ALT 72 Alkaline Phosphatase 77 Total Creatine Kinase 33 L Troponin I 0.023 Total Protein 6.3 Albumin 3.3 L Globulin 3.0 Albumin/Globulin Ratio 1.1 Lipase 585 H 02/25/18 02/25/18 05:15 05:15 WBC RBC Hgb Hct MCV MCH MCHC RDW Plt Count Neut % (Auto) Lymph % (Auto) [place] % (Auto) Eos % (Auto) Baso % (Auto) Neut # (Auto) PT INR APTT Sodium 141 Potassium 4.2 Chloride 110 H Carbon Dioxide 23 BUN 27 H Creatinine 1.60 H Estimated GFR 41.7 L BUN/Creatinine Ratio 16.9 Glucose 86 Calcium 8.8 Total Bilirubin 0.3 AST 39 ALT 59 Alkaline Phosphatase 75 Total Creatine Kinase Troponin I Total Protein 5.5 L Albumin 2.8 L Globulin 2.7 Albumin/Globulin Ratio 1.0 Lipase 727 H Discharge Plan Discharge Plan Patient Disposition: Home Discharge comment: call me with cbc from this am Provider Discharge Instructions Diet: Diet as Tolerated Diet comment: Push fluids Activity: as tolerated Skin/Wound/Dressing Care Report to your healthcare provider any signs of infection, such as:: chills, fever, night sweats and increased pain Discharge Data Primary Care Provider: Richard Espino Attending Provider: Clint Kohli Admit Date/Time: 02/24/18 16:41 Quality VTE Deep Vein Thrombosis/Pulmonary Embolism Present on Admission: No
[2018-02-25 10:37] LABS: Add Manual Diff / Slide Review NO; Basophils Percent Auto 0.6 % (0-2); Eosinophils Percent Auto 2.1 % (2-4); Hematocrit 26.7 % (41-53); Hemoglobin 8.9 g/dL (13.5-17.5); Lymphocytes Percent Auto 29.2 % (25-40); Mean Corpuscular HGB Conc 33.5 % (30-36); Mean Corpuscular Hemoglobin 29.5 PG (26-34); Mean Corpuscular Volume 87.9 fL (80-100); Monocytes Percent Auto 11.3 % (3-14); Neutrophils Absolute Auto 2900 /uL (3000-5900); Neutrophils Percent Auto 56.8 % (50-75); Platelet Count 130 X10^3/uL (150-400); Red Blood Cell Count 3.03 X10^6/uL (4.5-5.9); White Blood Cell Count 5.1 X10^3/uL (4.5-11.0)
[2018-02-25 11:00] VITALS: BP 118/53; PULSE 53; RESP 16; O2SAT 100
--- NOTE | 2018-02-25 13:40 | CM.DPC ---
DCP Cont: Patient being discharged to [facility] today. [facility], spoke to Ariane who spoke to [employer]. Asked if they needed any type of report. Stated that they just need discharge paperwork. Updated nurse, Leah. to sweet pickle maker today. P: Discharged home, to [facility], to transport. Melanie Cabrales RN/Social Organization Professor
--- NOTE | 2018-02-25 13:44 | PC.NURSE ---
Discharge: Patient feels ready to d/c home. Has been up in room w/walker and denies dizziness or problems. 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 Dr. Steele was made aware. Spouse here and reviewed d/c instructions with her and pt. Questions answered, requested a copy of his CT scans w/pt approval and these were given. Cbc results called to Dr. Steele prior to d/c home per his request. Patient denies any problems. Cont w/poc.
== END 2018-02-25 13:10 | disposition home or self-care (01) ==
LOC: ED 16:34 → AC 02-25 10:29
PROVIDERS: Admitting Provider Family Medicine; Emergency Provider Emergency Medicine; PCP Family Medicine; Visit Provider Family Medicine
DX: R42 Dizziness and giddiness (principal); N18.3 Chronic kidney disease, stage 3 (moderate); I12.9 Hypertensive chronic kidney disease with stage 1 through stage 4 chronic kidney disease, or unspecified chronic kidney disease; D64.9 Anemia, unspecified; I25.10 Atherosclerotic heart disease of native coronary artery without angina pectoris; M1A.9XX1 Chronic gout, unspecified, with tophus (tophi); M10.9 Gout, unspecified; G89.29 Other chronic pain; E78.5 Hyperlipidemia, unspecified; M35.3 Polymyalgia rheumatica; F32.9 Major depressive disorder, single episode, unspecified; Z95.1 Presence of aortocoronary bypass graft; E86.0 Dehydration
CPT/HCPCS: 36415; 36591; 51798; 70450; 71045; 71275; 74174; 80053; 82550; 82553; 83690; 84484; 85025; 85610; 85730; 93005; 93010; 99285; G0378; J1650; J7050; Q9967

== ENCOUNTER → 2019-02-06 16:16 | Outpatient (CLI) | payer MEDICARE, OTHER, SELFPAY ==
[2018-02-24 17:38] VITALS: BMI 23.6
--- NOTE | 2019-02-06 | DI.RAD.S_ITS ---
PROCEDURE: XR CHEST 2V INDICATIONS: RIB PAIN POST FALL TECHNIQUE: 2 views of the chest were acquired. COMPARISON: [facility], , XR CHEST 1V, 02/24/2018, 13:10. FINDINGS: Surgical changes and devices: Sternotomy wires and CABG clips. Screw fixation of the right humeral head Lungs and pleura: Low lung volumes with scattered subsegmental atelectasis/scarring. No pleural effusions or pneumothorax. Mediastinum: Mediastinal contours are normal. Heart size is normal. Bones and chest wall: No suspicious bony abnormalities. Soft tissues appear unremarkable. IMPRESSION: No acute disease Dictated by: Romero Erickson M.D. on 02/06/2019 at 17:20 Approved by: Romero Erickson M.D. on 02/06/2019 at 17:21
== END ==
PROVIDERS: PCP Family Medicine; Visit Provider Family Medicine
DX: R07.81 Pleurodynia (principal); W19.XXXD Unspecified fall, subsequent encounter
CPT/HCPCS: 71046

== ENCOUNTER → 2019-07-12 17:29 | Outpatient (CLI) | payer MEDICARE, OTHER, SELFPAY ==
[2018-02-24 17:38] VITALS: BMI 23.6
[2019-07-12 18:18] LABS: Hematocrit 31.8 % (41-53); Hemoglobin 10.5 g/dL (13.5-17.5); Mean Corpuscular HGB Conc 33.1 % (30-36); Mean Corpuscular Hemoglobin 31.3 PG (26-34); Mean Corpuscular Volume 94.6 fL (80-100); Platelet Count 155 X10^3/uL (150-400); Red Blood Cell Count 3.37 X10^6/uL (4.5-5.9); Red Cell Distribution Width 16.1 % (11.6-14.8); White Blood Cell Count 11.1 X10^3/uL (4.5-11.0)
[2019-07-12 18:22] LABS: Add Manual Diff / Slide Review YES
[2019-07-12 18:39] LABS: Alanine Aminotransferase 18 IU/L (<50); Albumin 3.4 g/dL (3.5-5.0); Albumin Globulin Ratio 1.3 (1.0-2.8); Alkaline Phosphatase 65 U/L (38-126); Aspartate Aminotransferase 22 IU/L (17-59); BUN Creatinine Ratio 19.2 (6-22); Bilirubin Total 0.5 mg/dL (0.2-1.3); Blood Urea Nitrogen 48 mg/dL (9-20); C-Reactive Protein Quant 2.3 mg/dL (<1.0); Calcium 9.8 mg/dL (8.4-10.2); Carbon Dioxide 20 mmol/L (22-32); Chloride 113 mmol/L (98-107); Estimated Glomerular Filt Rate 24.8 mL/min (>60); Globulin 2.7 g/dL (1.7-4.1); Glucose 77 mg/dL (80-110); HEMOLYSIS < 15 (0-50); Potassium 5.2 mmol/L (3.4-5.1); Sodium 142 mmol/L (137-145); Total Protein 6.1 g/dL (6.3-8.2); Uric Acid 7.5 mg/dL (3.5-8.5)
[2019-07-12 18:42] LABS: Anisocytosis 1+; Neutrophils Absolute Manual 7992 /uL (3000-5900); Total Cells Counted 100
[2019-07-12 18:43] LABS: Poikilocytosis 1+
[2019-07-12 18:44] LABS: Erythrocyte Sedimentation Rate 66 MM/HR (0-15)
== END ==
PROVIDERS: PCP Family Medicine; Visit Provider Family Medicine
DX: M35.3 Polymyalgia rheumatica (principal); M10.9 Gout, unspecified; I10 Essential (primary) hypertension; I25.10 Atherosclerotic heart disease of native coronary artery without angina pectoris
CPT/HCPCS: 36415; 80053; 84550; 85025; 85651; 86140

== ENCOUNTER 2019-10-18 20:42 | Inpatient (IN) | payer MEDICARE, OTHER, SELFPAY ==
[2018-02-24 17:38] VITALS: BMI 23.6
[2019-10-18] VITALS (10 sets, daily range): BP systolic 77–89; BP diastolic 44–53; PULSE 81–91; RESP 23–42; TEMP 36.8–37.1; O2SAT 92–98; BMI 26.7
--- NOTE | 2019-10-18 20:59 | ED_ITS ---
HPI - SOB/Dyspnea General Chief Complaint: Altered Mental Status Stated Complaint: confusion Time Seen by Provider: 10/18/19 20:46 Source: patient, family and EMS Mode of arrival: EMS Limitations: no limitations History of Present Illness HPI Narrative: This an 83-year-old male who comes out with complaint of shortn ess of breath, confusion and decreased urine output with darker urine. Patient does have a Schilling catheter in place there is urine present but is a little bit dark. Patient has not been feeling well. He is able to answer some questions but states that he does feel tired. Patient states he has felt warm intermittently, he does feel short of breath. He denies any chest pain or pressure. He denies any abdominal pain. He denies any nausea and or vomiting. Denies any issues with bowel movements. He does note that his urine output has been decreased. EMS states that he answered questions appropriately for them but his told him that he has been a little bit confused. Patient according to the has also noticed that he has had a decreased amount of urine output. He does have a history of coronary artery disease, hypertension and gout and history of polymyalgia rheumatica. Patient has a history of cardiac stent. He also states that he has a history of CABG. Related Data Home Medications Medication Instructions Recorded Confirmed atorvastatin 40 mg PO DAILY 12/12/17 10/18/19 sertraline 50 mg PO DAILY 12/12/17 10/18/19 metoprolol succinate 12.5 mg PO QAM 12/14/17 10/18/19 amlodipine 10 mg PO DAILY PRN 10/18/19 10/18/19 colchicine 0.6 mg PO DAILY 10/18/19 10/18/19 febuxostat 40 mg PO DAILY 10/18/19 10/18/19 fesoterodine [Toviaz] 4 mg PO DAILY 10/18/19 10/18/19 finasteride 5 mg PO DAILY 10/18/19 10/18/19 hydralazine 10 mg PO Q4HR PRN 10/18/19 10/18/19 lisinopril 5 mg PO DAILY 10/18/19 10/18/19 prednisone 20 mg PO DAILY 10/18/19 10/18/19 Allergies Allergy/AdvReac Type Severity Reaction Status Date / Time No Known Drug Allergies Allergy Verified 10/18/19 20:57 Review of Systems Review of Systems ROS Unobtainable: All systems reviewed & are unremarkable except as noted in HPI and below Patient History Medical History Anemia (Acute) Chronic pain (Acute) Chronic renal failure, stage 3 (moderate) (Acute) Coronary artery disease (Acute) Depression (Acute) Gout (Acute) Gouty tophi (Acute) Hyperlipidemia (Acute) Polymyalgia rheumatica (Acute) Systolic murmur (Acute) Surgical History Stented coronary artery (Acute) Social History household members: spouse Smoking Status: Never smoker alcohol intake: current Smoking Status: Never smoker alcohol intake frequency: a few times a month Substance Use Type: does not use Exam Narrative Exam Narrative: GENERAL: Alert and oriented, patient answers majority of questions well but will trial off during some questions, well-nourished elderly male, mild to moderate distress. HEENT: Head normocephalic, atraumatic, EOMI, pupils reactive, face symmetric, moist mucous membranes NECK: Supple, full range of motion CARDIOVASCULAR: Regular rate and rhythm without murmurs, rubs or gallops. No JVD. No swelling of bilateral lower extremities. Patient has a healed midline incision on the anterior chest. RESPIRATORY: Breath sounds equal bilaterally, no wheezes rales or rhonchi. Positive for tachypnea, no accessory muscle use. ABDOMEN: Soft, nontender. Normoactive bowel sounds all 4 quadrants. No guarding or rebound, rigidity, no mass : No CVA tenderness EXTREMITIES: Normal range of motion, no clubbing or edema. Neurovascularly intact NEUROLOGICAL: Cranial nerves II through XII grossly intact. Moving all extremities SKIN: Warm, dry, no petechiae, no rashes or lesions. Initial Vital Signs Initial Vital Signs: Vital Signs Pulse Rate 91 H 10/18/19 20:53 Respiratory Rate 34 H 10/18/19 20:53 Blood Pressure 82/50 L 10/18/19 20:53 Pulse Oximetry 95 10/18/19 20:53 Course Orders Ordered: ED Orders 10/18/19 20:52 C-Reactive Protein Quant Stat Complete Blood Count AUTO DIFF Stat Comprehensive Metabolic Panel Stat Ferritin Stat Lactate Dehydrogenase Stat Magnesium Stat NT-proBNP (BNP-Adult 18+) Stat Pathologist Review (for CBC) Stat Procalcitonin Stat Prothrombin Time INR Stat Troponin & CK Cardiac Panel Stat 10/18/19 20:56 Consult to Respiratory Therapy Evaluate & Treat EKG-12 Lead Stat 10/18/19 20:57 XR chest 1V Stat 10/18/19 20:58 Blood Culture Stat Lactate (Lactic Acid) Stat 10/18/19 22:35 Urinalysis and Microscopic Stat Urine Culture Stat Discontinued Medications Aspirin (Aspirin Chew) 324 mg PO NOW ONE Stop: 10/18/19 22:03 Last Admin: 10/18/19 22:08 Dose: 324 mg Documented by: MADDISON Furosemide (Lasix) 80 mg IV NOW ONE Stop: 10/18/19 21:48 Last Admin: 10/18/19 21:59 Dose: 80 mg Documented by: MADDISON Hydrocortisone (Solu-Cortef) 100 mg IV NOW ONE Stop: 10/18/19 22:14 Last Admin: 10/18/19 22:17 Dose: 100 mg Documented by: MADDISON Sodium Chloride (Normal Saline 0.9%) 1,000 mls @ 1,000 mls/hr IV BOLUS ONE Stop: 10/18/19 22:46 Last Infusion: 10/18/19 23:00 Dose: 0 mls/hr Documented by: JUAN PABLO Admin: 10/18/19 21:59 Dose: 1,000 mls/hr Documented by: MADDISON Levofloxacin (Levaquin) 750 mg in 150 mls @ 100 mls/hr IV NOW ONE Stop: 10/18/19 23:18 Last Infusion: 10/18/19 23:40 Dose: 0 mls/hr Documented by: RGFAREfrem Admin: 10/18/19 22:00 Dose: 100 mls/hr Documented by: MADDISON Vital Signs Vital signs: Vital Signs - 8 hr 10/18/19 20:53 10/18/19 20:57 10/18/19 21:00 Temperature 98.3 F 98.8 F Pulse Rate 91 H 90 88 Respiratory Rate 34 H 42 H 26 H Blood Pressure 83/51 L Blood Pressure [Left Arm] 82/50 L 82/50 L Pulse Oximetry 95 92 95 10/18/19 21:10 10/18/19 21:20 10/18/19 21:30 Temperature Pulse Rate 82 85 82 Respiratory Rate 28 H 30 H 24 Blood Pressure Blood Pressure [Left Arm] 83/51 L 77/47 L 80/45 L Pulse Oximetry 95 96 95 10/18/19 21:40 10/18/19 22:01 10/18/19 22:27 Temperature Pulse Rate 81 84 86 Respiratory Rate 23 27 H 28 H Blood Pressure Blood Pressure [Left Arm] 77/45 L 79/44 L 89/53 L Pulse Oximetry 98 94 10/18/19 22:34 Temperature Pulse Rate 81 Respiratory Rate 27 H Blood Pressure Blood Pressure [Left Arm] 89/53 L Pulse Oximetry 94 MDM - SOB/Dyspnea Lab Data Attestation: I reviewed the patient's lab results. Result diagrams: 10/18/19 20:52 10/18/19 20:52 Labs: Lab Results 10/18/19 10/18/19 10/18/19 Range/Units 20:52 20:52 20:52 WBC 14.3 H (4.5-11.0) X10^3/uL RBC 3.43 L (4.5-5.9) X10^6/uL Hgb 10.6 L (13.5-17.5) g/dL Hct 31.0 L (41-53) % MCV 90.2 (80-100) fL MCH 30.9 (26-34) PG MCHC 34.2 (30-36) % RDW 15.8 H (11.6-14.8) % Plt Count 72 L (150-400) X10^3/uL Neut % (Auto) Not Reportable Lymph % (Auto) Not Reportable [place] % (Auto) Not Reportable Eos % (Auto) Not Reportable Baso % (Auto) Not Reportable Lymph # (Auto) Not Reportable [place] # (Auto) Not Reportable Baso # (Auto) Not Reportable Total Counted 100 Seg Neutrophils % 47.0 (38-70) % Band Neutrophils % 29.0 H (3-7) % Lymphocytes % (Manual) 2.0 L (25-45) % Monocytes % (Manual) 3.0 (2-11) % Metamyelocytes % 13.0 H (-0) % Myelocytes % 6.0 H (-0) % Neutrophils # (Manual) 84686 H (6398-2691) /uL RBC Morphology Normal morphology PT 15.4 H (10.1-12.7) SECONDS INR 1.3 (0.9-1.3) Sodium (137-145) mmol/L Potassium (3.4-5.1) mmol/L Chloride (98-107) mmol/L Carbon Dioxide (22-32) mmol/L BUN (9-20) mg/dL Creatinine (0.66-1.25) mg/dL Estimated GFR (>60) mL/min BUN/Creatinine Ratio (6-22) Glucose (80-110) mg/dL Lactate (0.7-2.1) mmol/L Calcium (8.4-10.2) mg/dL Magnesium 1.5 L (1.6-2.3) mg/dL Ferritin 305 (18-464) ng/mL Total Bilirubin (0.2-1.3) mg/dL AST (17-59) IU/L ALT (<50) IU/L Alkaline Phosphatase (38-126) U/L Lactate Dehydrogenase 555 (313-618) U/L Total Creatine Kinase 590 H (55-170) U/L CK-MB (CK-2) 17.60 H (<2.37) ng/mL CK-MB (CK-2) Rel Index 3.0 (1.5-5.0) % Troponin I 2.920 H* (0.01-0.034) ng/mL C-Reactive Protein 21.5 H (<1.0) mg/dL NT-Pro-B Natriuret Pep 77739 H (<450) pg/mL Total Protein (6.3-8.2) g/dL Albumin (3.5-5.0) g/dL Globulin (1.7-4.1) g/dL Albumin/Globulin Ratio (1.0-2.8) Procalcitonin (<0.5) ng/mL Urine Color Urine Appearance Urine pH (4.5-8.0) Ur Specific [place] (1.000-1.035) Urine Protein (Negative) Urine Glucose (UA) (Negative) g/dL Urine Ketones (NEGATIVE) Urine Occult Blood (Negative) Urine Nitrate (Negative) Urine Bilirubin (NEGATIVE) Urine Urobilinogen (0.2) E.U./dL Ur Leukocyte Esterase (NEGATIVE) Urine RBC (0-5/HPF) Urine WBC (0-5/HPF) Urine Bacteria (None) Ur Culture Indicated? Micro UA Comment 10/18/19 10/18/19 10/18/19 Range/Units 20:52 20:52 20:58 WBC (4.5-11.0) X10^3/uL RBC (4.5-5.9) X10^6/uL Hgb (13.5-17.5) g/dL Hct (41-53) % MCV (80-100) fL MCH (26-34) PG MCHC (30-36) % RDW (11.6-14.8) % Plt Count (150-400) X10^3/uL Neut % (Auto) Lymph % (Auto) [place] % (Auto) Eos % (Auto) Baso % (Auto) Lymph # (Auto) [place] # (Auto) Baso # (Auto) Total Counted Seg Neutrophils % (38-70) % Band Neutrophils % (3-7) % Lymphocytes % (Manual) (25-45) % Monocytes % (Manual) (2-11) % Metamyelocytes % (-0) % Myelocytes % (-0) % Neutrophils # (Manual) (4899-6729) /uL RBC Morphology PT (10.1-12.7) SECONDS INR (0.9-1.3) Sodium 134 L (137-145) mmol/L Potassium 4.8 (3.4-5.1) mmol/L Chloride 109 H (98-107) mmol/L Carbon Dioxide 12 L (22-32) mmol/L BUN 73 H (9-20) mg/dL Creatinine 4.18 H (0.66-1.25) mg/dL Estimated GFR 13.7 L (>60) mL/min BUN/Creatinine Ratio 17.5 (6-22) Glucose 96 (80-110) mg/dL Lactate 3.1 H (0.7-2.1) mmol/L Calcium 8.5 (8.4-10.2) mg/dL Magnesium (1.6-2.3) mg/dL Ferritin (18-464) ng/mL Total Bilirubin 0.7 (0.2-1.3) mg/dL AST 50 (17-59) IU/L ALT 19 (<50) IU/L Alkaline Phosphatase 94 (38-126) U/L Lactate Dehydrogenase (313-618) U/L Total Creatine Kinase (55-170) U/L CK-MB (CK-2) (<2.37) ng/mL CK-MB (CK-2) Rel Index (1.5-5.0) % Troponin I (0.01-0.034) ng/mL C-Reactive Protein (<1.0) mg/dL NT-Pro-B Natriuret Pep (<450) pg/mL Total Protein 6.3 (6.3-8.2) g/dL Albumin 3.2 L (3.5-5.0) g/dL Globulin 3.1 (1.7-4.1) g/dL Albumin/Globulin Ratio 1.0 (1.0-2.8) Procalcitonin 561.80 H (<0.5) ng/mL Urine Color Urine Appearance Urine pH (4.5-8.0) Ur Specific [place] (1.000-1.035) Urine Protein (Negative) Urine Glucose (UA) (Negative) g/dL Urine Ketones (NEGATIVE) Urine Occult Blood (Negative) Urine Nitrate (Negative) Urine Bilirubin (NEGATIVE) Urine Urobilinogen (0.2) E.U./dL Ur Leukocyte Esterase (NEGATIVE) Urine RBC (0-5/HPF) Urine WBC (0-5/HPF) Urine Bacteria (None) Ur Culture Indicated? Micro UA Comment 10/18/19 Range/Units 22:35 WBC (4.5-11.0) X10^3/uL RBC (4.5-5.9) X10^6/uL Hgb (13.5-17.5) g/dL Hct (41-53) % MCV (80-100) fL MCH (26-34) PG MCHC (30-36) % RDW (11.6-14.8) % Plt Count (150-400) X10^3/uL Neut % (Auto) Lymph % (Auto) [place] % (Auto) Eos % (Auto) Baso % (Auto) Lymph # (Auto) [place] # (Auto) Baso # (Auto) Total Counted Seg Neutrophils % (38-70) % Band Neutrophils % (3-7) % Lymphocytes % (Manual) (25-45) % Monocytes % (Manual) (2-11) % Metamyelocytes % (-0) % Myelocytes % (-0) % Neutrophils # (Manual) (0981-4577) /uL RBC Morphology PT (10.1-12.7) SECONDS INR (0.9-1.3) Sodium (137-145) mmol/L Potassium (3.4-5.1) mmol/L Chloride (98-107) mmol/L Carbon Dioxide (22-32) mmol/L BUN (9-20) mg/dL Creatinine (0.66-1.25) mg/dL Estimated GFR (>60) mL/min BUN/Creatinine Ratio (6-22) Glucose (80-110) mg/dL Lactate (0.7-2.1) mmol/L Calcium (8.4-10.2) mg/dL Magnesium (1.6-2.3) mg/dL Ferritin (18-464) ng/mL Total Bilirubin (0.2-1.3) mg/dL AST (17-59) IU/L ALT (<50) IU/L Alkaline Phosphatase (38-126) U/L Lactate Dehydrogenase (313-618) U/L Total Creatine Kinase (55-170) U/L CK-MB (CK-2) (<2.37) ng/mL CK-MB (CK-2) Rel Index (1.5-5.0) % Troponin I (0.01-0.034) ng/mL C-Reactive Protein (<1.0) mg/dL NT-Pro-B Natriuret Pep (<450) pg/mL Total Protein (6.3-8.2) g/dL Albumin (3.5-5.0) g/dL Globulin (1.7-4.1) g/dL Albumin/Globulin Ratio (1.0-2.8) Procalcitonin (<0.5) ng/mL Urine Color Yellow Urine Appearance Clear Urine pH 5.0 (4.5-8.0) Ur Specific [place] 1.010 (1.000-1.035) Urine Protein 1+ H (Negative) Urine Glucose (UA) Negative (Negative) g/dL Urine Ketones Negative (NEGATIVE) Urine Occult Blood 3+ H (Negative) Urine Nitrate Negative (Negative) Urine Bilirubin Negative (NEGATIVE) Urine Urobilinogen 0.2 (0.2) E.U./dL Ur Leukocyte Esterase 3+ H (NEGATIVE) Urine RBC 1-5/hpf (0-5/HPF) Urine WBC 10-30/hpf H (0-5/HPF) Urine Bacteria Many (>30) H (None) Ur Culture Indicated? Culture not indicate Micro UA Comment * Imaging Data Chest x-ray: Radiologist's Impression: [address] [address] XRay Report Signed Patient: Papi Nick MMR#: [id number] : 7Acct:[id number] Age/Sex: 83 / MDate of Service: 10/18/19 Loc: ED Accession Number: [id number] Procedure: XR chest 1V Ordering Provider: Bella Valentine D.O. PROCEDURE: XR CHEST 1V INDICATIONS: sob, weakness TECHNIQUE: One view of the chest was acquired. COMPARISON: [facility], CR, XR CHEST 2V, 02/06/2019, 16:46. [facility], CR, XR CHEST 1V, 02/24/2018, 13:10. FINDINGS: Surgical changes and devices: Sternotomy wires, presumed prior CABG. Lungs and pleura: Lungs are abnormal with a mild pulmonary edema pattern. No pleural effusions or pneumothorax. Mediastinum: Mediastinal contours appear normal. Heart size is at the upper limits of normal. Bones and chest wall: No suspicious bony lesions. Overlying soft tissues appear unremarkable. IMPRESSION: Prior CABG, mild pulmonary edema pattern, heart size at the upper limits of normal. No focal pneumonia found. Dictated by: Eran Delatorre M.D. on 10/18/2019 at 21:31 Approved by: Eran Delatorre M.D. on 10/18/2019 at 21:32 ECG Data Attestation: I personally reviewed and interpreted this ECG as follows: Prior ECG tracings: available for review Interpretation: Sinus rhythm right bundle branch block rate 88 P are 166 QRS of 145 and QTC of 416. No new ST elevation/depression appreciated. Patient has prior EKG from 02/24/2018 which appears similar with right bundle-branch. MDM Narrative Medical decision making narrative: Patient in the 90s to 80s systolic. Pulse is in the 80s but patient is on beta-gabby. Respirations are in the 20s. Patient was placed on O2 his lowest in the room was about 90% room air. Patient does feel little short of breath but feels improved with O2. He does appear tired but nontoxic. Patient did have his suprapubic catheter changed out yesterday but he has had output and is having output here in the department as well. Patient's chest x-ray shows a mild pulmonary edema pattern, heart size is upper limits of normal with no focal pneumonia noted. Patient does have a leukocytosis, platelets are 72 with a hemoglobin of 10, his a bandemia of 29 with Lipo said something to and may kneel neutrophils are 10,000. Patient's lactate 3.1 with a sodium of 134, CO2 of 12 and a BUN of 73 with a creatinine of 4.18 and a GFR of 13, patient's last recorded creatinine was 2.5 in July of 2019 and before that in the 1.6 to 1.5 range in 2017. Patient's total CK is 590 with a CK-MB of 17.6. C-reactive protein [place] 21 [place] [address]. Patient's troponin is positive at 2.9 and procalcitonin is elevated. Patient appears to be in acute renal failure possibly he may have infection in top of this. I suspect his elevation in BNP and pulmonary edema secondary to his renal failure and decreased urine output which his states that she noted he did not seem to feel well and did vomit once yesterday and was not looking well on the way to his appointment for his urologist. After discussion he is a DNR/DNI he is not quite comfort measures but they do not wish for dialysis, they are unsure about BiPAP but do not with for interventions such as an ABG or central line which are not desired. They are okay with some aggressive medical attention but do not wish to increase patient's discomfort this is an discussion with the patient as well as his . Spoke with Dr. Kohli, discussed patient appears to be in acute on chronic renal failure with pulmonary edema and signs of fluid overload. He does have an eleva gina troponin and BNP which I suspect may be more related to his renal dysfunction causing fluid overload and demand ischemia although potentially patient could be having an MN with his cardiac history. Patient also appears to possibly have sepsis with his elevated white count and bandemia although he does have elevated meta myelocytes and had some changes on a prior blood draw in July that suggest he may have a blood dyscrasia. Patient most likely source would be urine with his chronic indwelling Schilling catheter and change out yesterday. Patient has had a very small urine out but plan to send for analysis and culture. We did discussed 's and patient's goals of DNR/DNI they are unsure about BiPAP but at this time do not wish for central line or painful or discomforting measures. Because of this we will hold on blood cultures and additional lab draws. did bring patient's paperwork with her and presented in the department to myself. We also discussed started patient on Levaquin based on renal dosing and will given aspirin but hold any Lovenox or additional anticoagulant at this time. Less likely is covid-19 but test was sent and will be pending for several days. Discharge Plan Departure Patient Disposition: Admitted As Inpatient Clinical Impression: Non-ST elevation MN (NSTEMI) Acute on chronic kidney failure Qualifiers: Acute renal failure type: unspecified Pulmonary edema Qualifiers: Chronicity: acute Qualified Code(s): J81.0 - Acute pulmonary edema Sepsis Qualifiers: Sepsis type: sepsis due to unspecified organism Sepsis acute organ dysfunction status: with acute organ dysfunction Severe sepsis acute organ dysfunction type: acute renal failure Admit Date/Time: 10/18/19 22:45 Admit Provider: Clint Kohli
[2019-10-18 21:08] LABS: INR 1.3 (0.9-1.3); Prothrombin Time 15.4 SECONDS (10.1-12.7)
--- NOTE | 2019-10-18 21:09 | PC.NURSE ---
New sterile urinary bag placed to existing suprapubic catheter
[2019-10-18 21:14] LABS: Hemoglobin 10.6 g/dL (13.5-17.5); Mean Corpuscular HGB Conc 34.2 % (30-36); Mean Corpuscular Hemoglobin 30.9 PG (26-34); Mean Corpuscular Volume 90.2 fL (80-100); Platelet Count 72 X10^3/uL (150-400); Red Blood Cell Count 3.43 X10^6/uL (4.5-5.9); Red Cell Distribution Width 15.8 % (11.6-14.8); White Blood Cell Count 14.3 X10^3/uL (4.5-11.0)
[2019-10-18 21:17] LABS: Lactate (Lactic Acid) 3.1 mmol/L (0.7-2.1)
[2019-10-18 21:18] LABS: Alanine Aminotransferase 19 IU/L (<50); Albumin 3.2 g/dL (3.5-5.0); Alkaline Phosphatase 94 U/L (38-126); Aspartate Aminotransferase 50 IU/L (17-59); BUN Creatinine Ratio 17.5 (6-22); Bilirubin Total 0.7 mg/dL (0.2-1.3); Blood Urea Nitrogen 73 mg/dL (9-20); Calcium 8.5 mg/dL (8.4-10.2); Carbon Dioxide 12 mmol/L (22-32); Chloride 109 mmol/L (98-107); Estimated Glomerular Filt Rate 13.7 mL/min (>60); Globulin 3.1 g/dL (1.7-4.1); Glucose 96 mg/dL (80-110); HEMOLYSIS < 15 (0-50); Potassium 4.8 mmol/L (3.4-5.1); Sodium 134 mmol/L (137-145); Total Protein 6.3 g/dL (6.3-8.2)
[2019-10-18 21:19] LABS: Creatine Kinase 590 U/L (55-170); Magnesium 1.5 mg/dL (1.6-2.3)
[2019-10-18 21:20] LABS: Add Manual Diff / Slide Review YES
[2019-10-18 21:30] LABS: NT-proBNP (BNP-Adult 18+) 26600 pg/mL (<450)
[2019-10-18 21:31] LABS: Lactate Dehydrogenase 555 U/L (313-618)
[2019-10-18 21:34] LABS: Neutrophils Absolute Manual 10868 /uL (3000-5900); RBC Morphology Normal Morphology; Total Cells Counted 100
[2019-10-18 21:42] LABS: C-Reactive Protein Quant 21.5 mg/dL (<1.0)
[2019-10-18 21:53] LABS: Ferritin 305 ng/mL (18-464)
[2019-10-18] MEDS: FUROSEMIDE 100 MG/10 ML VIAL 80 MG IV (21:59)
[2019-10-18] MEDS: SODIUM CHLORIDE 0.9% 1,000 ML 1000 ML IV (21:59)
[2019-10-18] MEDS: levoFLOXacin 750 MG/150 ML PIGGYBACK 100 MG IV (22:00)
[2019-10-18] MEDS: ASPIRIN 81 MG CHEW TAB 324 MG PO (22:08)
[2019-10-18] MEDS: HYDROCORTISONE 100 MG/2 ML VIAL IV (22:17)
[2019-10-18 22:48] LABS: Appearance Urine UA CLEAR; Bilirubin Urine UA NEGATIVE (NEGATIVE); Color Urine UA YELLOW; Glucose Urine UA NEGATIVE (Negative); Ketones Urine UA NEGATIVE (NEGATIVE); Leukocyte Esterase Urine UA 3+ (NEGATIVE); Nitrite Urine UA NEGATIVE (Negative); Occult Blood Urine UA 3+ (Negative); Protein Urine UA 1+ (Negative); Urobilinogen Urine UA 0.2 E.U./dL (0.2)
[2019-10-18 23:00] LABS: RBC Urine 1-5/HPF (0-5/HPF); WBC Urine 10-30/HPF (0-5/HPF)
[2019-10-18 23:01] LABS: Bacteria Urine Many (>30)
[2019-10-18 23:07] LABS: Reflexed Lactate in 2 Hours Y
--- NOTE | 2019-10-18 23:42 | PC.NURSE ---
Pt Twyla Nick leaving Hospital for evening and can be reached any time of day for updates or questions at [phone].
[2019-10-19] VITALS (26 sets, daily range): BP systolic 52–160; BP diastolic 25–102; PULSE 71–131; RESP 18–24; TEMP 36.4–36.8; O2SAT 92–100
--- NOTE | 2019-10-19 04:44 | PC.NURSE ---
Addendum entered by Melany Lo R.N. 10/19/19 05:46: Dr. Steele called at 0525 for change in vital signs and results of the STAT EKG (see results in chart). Vitals signs at 0517 BP 74/44, heart rate 110, 96% at 2 liters of oxygen. Vitals at 0522 69/46, heart rate 105, 97% at 2 liters of oxygen. Stat BNP ordered and a 500mL of (normal saline .9%) bolus x1. Stated he was coming to the hospital. Original Note: Called Dr. Steele at [address] elevation changes on the telemetry reading and a patient condition update. The patient has dyspnea and is tachypneic ranging from 22-25 breaths per minute, blood pressure is 138/64, heart rate ranging from 118-125 at rest, saturating 95% on 2 Liters of oxygen. Stat EKG ordered, Stat Troponins ordered with every 8 hours x3 after. Nitro bid paste 1 to be applied.
[2019-10-19] MEDS: SODIUM CHLORIDE 0.9% 500 ML 1000 ML IV ×3 (05:45→09:05)
[2019-10-19 05:49] LABS: NT-proBNP (BNP-Adult 18+) 30400 pg/mL (<450)
[2019-10-19 06:33] LABS: BUN Creatinine Ratio 17.4 (6-22); Blood Urea Nitrogen 74 mg/dL (9-20); Calcium 7.8 mg/dL (8.4-10.2); Chloride 113 mmol/L (98-107); Estimated Glomerular Filt Rate 13.4 mL/min (>60); Glucose 57 mg/dL (80-110); HEMOLYSIS < 15 (0-50); Potassium 4.5 mmol/L (3.4-5.1); Sodium 137 mmol/L (137-145)
[2019-10-19 06:44] LABS: Carbon Dioxide 9 mmol/L (22-32)
--- NOTE | 2019-10-19 07:20 | P.HP_ITS ---
History of Present Illness History of Present Illness Date Patient Seen: 10/19/19 Time Patient Seen: 06:00 Date of Onset of Symptoms: 10/18/19 Chief complaint: confusion Narrative: Patient is a an 83-year-old well known by our practice patient of Dr. Espino on cross covering for who presents with 24 hours of increased confusion and weakness. Was requested to come in for hypotension History primarily from patient unable to give coherent history or complaints. Apparently he was in this usual state health until yesterday when he began just saying he was tired. Really had no significant new change. Maybe had a slight cough. Was n ot complaining of chest pain. Was not complaining of abdominal pain. Did have 1 episode of vomiting yesterday. Had no fevers or chills. Apparently he has had decreased urine output. Does have a suprapubic catheter which was placed during his stroke back in June. Patient had progressively increased weakness, and felt maybe he was warm. He has not had any diarrhea. Otherwise has been his usual self. states he otherwise has not had a lot of other changes. Patient has a history of coronary artery disease with previous [place] x3. Parent Madelyn not significant. Has had no evidence of significant ongoing ischemia that she could identify. Patient has had progressive downhill course since his stroke in June. Quality of life continues to decrease. There is dementia progresses and who really has limited quality of life. Patient back in June had stated his wishes of DNR and no intubation. At that time he felt that he did not want a lot of serious interventions but was not ready for comfort care and hospice. feels as if things of progress. His speech is been difficult since his stroke. He does ambulate some but not a lot. Is confused most of the time. H as no other significant change. She feels is if he does not want a lot of intervention. Patient has not been out of the house. 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 Patient History Medical History Anemia (Acute) Chronic pain (Acute) Chronic renal failure, stage 3 (moderate) (Acute) Coronary artery disease (Acute) Depression (Acute) Gout (Acute) Gouty tophi (Acute) Hyperlipidemia (Acute) Polymyalgia rheumatica (Acute) Systolic murmur (Acute) Surgical History Stented coronary artery (Acute) Family & Social History Social History: household members spouse Prior Living Arrangements House Safety & Behavioral: Feels Safe in Current Yes Environment Suicidal Ideation Description None Suicide Plan Description No Plan Tobacco & Substance use: Smoking Status Never smoker alcohol intake current alcohol intake frequency a few times a month Substance Use Type does not use Meds Home Medications and Allergies Home Medications Medication Instructions Recorded Confirmed Type atorvastatin 40 mg PO DAILY 12/12/17 10/18/19 History sertraline 50 mg PO DAILY 12/12/17 10/18/19 History metoprolol succinate 12.5 mg PO QAM 12/14/17 10/18/19 History amlodipine 10 mg PO DAILY PRN 10/18/19 10/18/19 History colchicine 0.6 mg PO DAILY 10/18/19 10/18/19 History febuxostat 40 mg PO DAILY 10/18/19 10/18/19 History fesoterodine [Toviaz] 4 mg PO DAILY 10/18/19 10/18/19 History finasteride 5 mg PO DAILY 10/18/19 10/18/19 History hydralazine 10 mg PO Q4HR PRN 10/18/19 10/18/19 History lisinopril 5 mg PO DAILY 10/18/19 10/18/19 History prednisone 20 mg PO DAILY 10/18/19 10/18/19 History Allergies Allergy/AdvReac Type Severity Reaction Status Date / Time No Known Drug Allergies Allergy Verified 10/18/19 20:57 Review of Systems Review of Systems Narrative: All reviewed through ROS: Yes All systems reviewed with the patient and are negative except as otherwise documented Exam Vital Signs (past 8 hours): - 10/19/19 00:53 10/19/19 02:25 10/19/19 04:34 Temperature 98.3 F Pulse Rate 97 H 115 H 131 H Respiratory Rate 22 18 24 Blood Pressure 108/67 138/64 145/102 H Pulse Oximetry 97 98 92 10/19/19 05:12 10/19/19 05:17 10/19/19 05:19 Temperature Pulse Rate 113 H 110 H 110 H Respiratory Rate Blood Pressure 80/51 L 77/49 L 74/36 L Pulse Oximetry 95 96 97 10/19/19 05:22 10/19/19 06:24 Temperature Pulse Rate 105 H 110 H Respiratory Rate Blood Pressure 69/46 L 74/44 L Pulse Oximetry 97 Oxygen Delivery Method Nasal Cannula Oxygen Flow Rate 2 Narrative Exam Narrative: Alert mildly agitated male confused in no acute distress. Eyes unremarkable. Mucous membranes moist. Neck supple without adenopathy. Difficult to get JVD patient somewhat agitated. Lungs actually sound pretty clear. Patient is breathing at increased rate but no retractions Heart regular rate and rhythm without murmur. Abdomen is soft positive bowel sounds nontender. Abdomen shows some mild diffuse tenderness but no rebound guarding no masses. Suprapubic catheter appears to be normal in appearance. Extremities without cyanosis clubbing edema. Neurologic exam is moving all extremities. Patient with clear expressive aphasia. Does seem to understand commands. Confused at where he is.. Does respond in a.m.. Sensation appears intact. Psychologically difficult done evaluate Objective Labs Result Diagrams: 10/18/19 20:52 10/19/19 04:55 Labs: Laboratory Results - last 24 hr 10/18/19 10/18/19 10/18/19 20:52 20:52 20:52 WBC 14.3 H RBC 3.43 L Hgb 10.6 L Hct 31.0 L MCV 90.2 MCH 30.9 MCHC 34.2 RDW 15.8 H Plt Count 72 L Neut % (Auto) Not Reportable Lymph % (Auto) Not Reportable Motley % (Auto) Not Reportable Eos % (Auto) Not Reportable Baso % (Auto) Not Reportable Lymph # (Auto) Not Reportable [place] # (Auto) Not Reportable Baso # (Auto) Not Reportable Total Counted 100 Seg Neutrophils % 47.0 Band Neutrophils % 29.0 H Lymphocytes % (Manual) 2.0 L Monocytes % (Manual) 3.0 Metamyelocytes % 13.0 H Myelocytes % 6.0 H Neutrophils # (Manual) 99130 H RBC Morphology Normal morphology PT 15.4 H INR 1.3 Sodium Potassium Chloride Carbon Dioxide BUN Creatinine Estimated GFR BUN/Creatinine Ratio Glucose Lactate Calcium Magnesium 1.5 L Ferritin 305 Total Bilirubin AST ALT Alkaline Phosphatase Lactate Dehydrogenase 555 Total Creatine Kinase 590 H CK-MB (CK-2) 17.60 H CK-MB (CK-2) Rel Index 3.0 Troponin I 2.920 H* C-Reactive Protein 21.5 H NT-Pro-B Natriuret Pep 28981 H Total Protein Albumin Globulin Albumin/Globulin Ratio Procalcitonin Urine Color Urine Appearance Urine pH Ur Specific [place] Urine Protein Urine Glucose (UA) Urine Ketones Urine Occult Blood Urine Nitrate Urine Bilirubin Urine Urobilinogen Ur Leukocyte Esterase Urine RBC Urine WBC Urine Bacteria Ur Culture Indicated? Micro UA Comment 10/18/19 10/18/19 10/18/19 20:52 20:52 20:58 WBC RBC Hgb Hct MCV MCH MCHC RDW Plt Count Neut % (Auto) Lymph % (Auto) [place] % (Auto) Eos % (Auto) Baso % (Auto) Lymph # (Auto) [place] # (Auto) Baso # (Auto) Total Counted Seg Neutrophils % Band Neutrophils % Lymphocytes % (Manual) Monocytes % (Manual) Metamyelocytes % Myelocytes % Neutrophils # (Manual) RBC Morphology PT INR Sodium 134 L Potassium 4.8 Chloride 109 H Carbon Dioxide 12 L BUN 73 H Creatinine 4.18 H Estimated GFR 13.7 L BUN/Creatinine Ratio 17.5 Glucose 96 Lactate 3.1 H Calcium 8.5 Magnesium Ferritin Total Bilirubin 0.7 AST 50 ALT 19 Alkaline Phosphatase 94 Lactate Dehydrogenase Total Creatine Kinase CK-MB (CK-2) CK-MB (CK-2) Rel Index Troponin I C-Reactive Protein NT-Pro-B Natriuret Pep Total Protein 6.3 Albumin 3.2 L Globulin 3.1 Albumin/Globulin Ratio 1.0 Procalcitonin 561.80 H Urine Color Urine Appearance Urine pH Ur Specific [place] Urine Protein Urine Glucose (UA) Urine Ketones Urine Occult Blood Urine Nitrate Urine Bilirubin Urine Urobilinogen Ur Leukocyte Esterase Urine RBC Urine WBC Urine Bacteria Ur Culture Indicated? Micro UA Comment 10/18/19 10/19/19 10/19/19 22:35 04:55 04:55 WBC RBC Hgb Hct MCV MCH MCHC RDW Plt Count Neut % (Auto) Lymph % (Auto) [place] % (Auto) Eos % (Auto) Baso % (Auto) Lymph # (Auto) [place] # (Auto) Baso # (Auto) Total Counted Seg Neutrophils % Band Neutrophils % Lymphocytes % (Manual) Monocytes % (Manual) Metamyelocytes % Myelocytes % Neutrophils # (Manual) RBC Morphology PT INR Sodium Potassium Chloride Carbon Dioxide BUN Creatinine Estimated GFR BUN/Creatinine Ratio Glucose Lactate Calcium Magnesium Ferritin Total Bilirubin AST ALT Alkaline Phosphatase Lactate Dehydrogenase Total Creatine Kinase CK-MB (CK-2) CK-MB (CK-2) Rel Index Troponin I 2.150 H* C-Reactive Protein NT-Pro-B Natriuret Pep 16252 H Total Protein Albumin Globulin Albumin/Globulin Ratio Procalcitonin Urine Color Yellow Urine Appearance Clear Urine pH 5.0 Ur Specific [place] 1.010 Urine Protein 1+ H Urine Glucose (UA) Negative Urine Ketones Negative Urine Occult Blood 3+ H Urine Nitrate Negative Urine Bilirubin Negative Urine Urobilinogen 0.2 Ur Leukocyte Esterase 3+ H Urine RBC 1-5/hpf Urine WBC 10-30/hpf H Urine Bacteria Many (>30) H Ur Culture Indicated? Culture not indicate Micro UA Comment * 10/19/19 04:55 WBC RBC Hgb Hct MCV MCH MCHC RDW Plt Count Neut % (Auto) Lymph % (Auto) [place] % (Auto) Eos % (Auto) Baso % (Auto) Lymph # (Auto) [place] # (Auto) Baso # (Auto) Total Counted Seg Neutrophils % Band Neutrophils % Lymphocytes % (Manual) Monocytes % (Manual) Metamyelocytes % Myelocytes % Neutrophils # (Manual) RBC Morphology PT INR Sodium 137 Potassium 4.5 Chloride 113 H Carbon Dioxide 9 L* BUN 74 H Creatinine 4.26 H Estimated GFR 13.4 L BUN/Creatinine Ratio 17.4 Glucose 57 L Lactate Calcium 7.8 L Magnesium Ferritin Total Bilirubin AST ALT Alkaline Phosphatase Lactate Dehydrogenase Total Creatine Kinase CK-MB (CK-2) CK-MB (CK-2) Rel Index Troponin I C-Reactive Protein NT-Pro-B Natriuret Pep Total Protein Albumin Globulin Albumin/Globulin Ratio Procalcitonin Urine Color Urine Appearance Urine pH Ur Specific [place] Urine Protein Urine Glucose (UA) Urine Ketones Urine Occult Blood Urine Nitrate Urine Bilirubin Urine Urobilinogen Ur Leukocyte Esterase Urine RBC Urine WBC Urine Bacteria Ur Culture Indicated? Micro UA Comment Assessment & Plan Assessment & Plan narrative: Acute myocardial infarction. Patient with new ST depression and elevated troponin. May be the cause of his admission. Certainly did not have that depression at the time presentation. Difficult to tell with his renal failure how much of the troponin elevation is secondary that but I am sure he has a cardiac event at this time. Probably the cause of his hypoxia an apparent pump failure. May be the cause of his renal failure also. At this point if his blood pressure continues to be low family is not interested in an aggressive care so no transferred to the unit. Will try simple treatment and see how he does. Hopefully can play some nitro. Patient has had an aspirin. Would like to get an echo and see where his function is but have to wait till he rules out for coronavirus. Will re-evaluate later today. Discussed keegan mcgregor with . Acute renal failure. Probably secondary to hypovolemia. We have been giving fluids and see how he does. Re-evaluate later this afternoon. Probably secondary to acute congestive heart failure secondary to myocardial infarction but will have to see. Could be somewhat dehydrated but difficult to tell since his hypoxia is probably coming from fluid overload. Acute hypoxic respiratory failure. Probably secondary to congestive heart failure. Hopefully we can get an echo in the next 24 hours to find out where were appt. Can not do that does coronavirus is define. Hopefully that will come back today. Otherwise will continue with Lasix now. Will have to watch closely as his pressure status. It is going to be a issue between fluid resuscitation for kidney and need for Lasix for congestive heart failure. Will watch closely. Infectious disease. Unclear whether not he has sepsis certainly has numbers consistent without an elevated white count. Interestingly his white count also has some bandemia with other changes which may be more along the lines of bone marrow dysfunction or possible leukemia changes. Certainly too early to tell. At this point will continue Cipro and follow from there. Cultures have been drawn. Will follow. Dementia. With slow progression. No real treatment. Will follow. Hypertension will hold medicine at this point not issue. Gout/polymyalgia rheumatica. Probably reason for prednisone. Do not see any active disease but will cover with Solu-Medrol while in hospital at this time. GI prophylaxis will hold any treatment at this time. Not high risk this minute may need to add it in the future. DVT prophylaxis. Will place on SCDs. Code status. DNR discussed with . Disposition. Long discussion with this morning about the critical nature. Probable cardiac myocardial infarction with home failure. Impact on kidneys and lungs. Unsure of infections status. Will have to follow that. Unlikely coronavirus. With multi organ failure high risk for mortality. We discussed this with . She does not want comfort care but does not want aggressive management. We discussed fluid hydration Lasix nitroglycerin she is comfortable with that. Certainly does not want intubation or medication vascular supply s he understands the significance of this. We will see how things go. Will keep him comfortable. Mostly agitated secondary to his dementia will see how things go. Quality VTE Deep Vein Thrombosis/Pulmonary Embolism Present on Admission: No
[2019-10-19] MEDS: FUROSEMIDE 40 MG/4 ML VIAL IV (07:26)
[2019-10-19] MEDS: MORPHINE 2 MG/ML INJ IV ×4 (07:41→13:25)
--- NOTE | 2019-10-19 08:04 | PC.NURSE ---
Addendum entered by Hellen Isidro R.N. 10/19/19 15:11: Alerted by family that pt may have passed. Auscultated and no heart beat heard and no respirations observed. Time of at 1505. MD notified at 1512. Family in room with pt and they state [facility] will be their choice. They will notify staff when they are ready to leave pt's room. Addendum entered by Hellen Isidro R.N. 10/19/19 13:33: Turned IVF down to TKO to maintain IV access for morphine and ativan. requested pt's wedding ring be removed which was done and returned to her. morphine given for elevated RR per family request. Addendum entered by Hellen Isidro R.N. 10/19/19 12:53: and children present. per pt was getting more agitated, medicated pt with morphine and ativan, pt resting comfortably after administration. Lab came up for next troponin draw, spoke with and she requested we do comfort measures only, stop abx, no lab draws. She states it would just be harder for him to draw this out longer. Called Dr Kohli, he is speaking with the on the phone. Addendum entered by Hellen Isidro R.N. 10/19/19 09:24: Applied nitro paste at 0910. BP at application was 89/55. 10 min after application BP was 55/39. Nitro paste removed. bladder scanned pt to ensure suprapubic patency and no urine on scan. Notified MD of nitro removal by phone, left message. bolus infusing. will continue to monitor. Addendum entered by Hellen Isidro R.N. 10/19/19 08:57: Pt received morphine, after about 1 hr, pt started c/o chest pain and got restless again. Received call from lab that pt had 4/4 positive BC with E. coli. No urine output 1hr after lasix given. BP now 80's/40-50's. Notified , ok to change morphine to q1hr. Order to give pt 1/2 nitro paste. Give 500 ml NS bolus and run NS at 150/hr after. Original Note: Day Shift Pt restless in bed and squirming. SOB while resting and pt states it is hard to breath. SBP was 130's for several readings, gave 40 mg of lasix per MD order. SBP down to 113 after about 5 min after lasix admin. Pt continues to be SOB, RR >60. Gave pt 2mg morphine and after about 5 min pt appears more comfortable and states it is easier to breath. His restlessness decreases and RR down to 32. confusion still remains. will continue to monitor.
[2019-10-19 08:13] LABS: Acinetobacter baumannii Not Detected (Not Detect); Enterobacter cloacae complex Not Detected (Not Detect); Enterobacteriaceae species Detected (Not Detect); Enterococcus species Not Detected (Not Detect); KPC (carbapenem-resist gene) Not Detected (Not Detect); Listeria monocytogenes Not Detected (Not Detect); Proteus species Not Detected (Not Detect); Staphylococcus species Not Detected (Not Detect); Streptococcus agalactiae (Gr B Not Detected (Not Detect); Streptococcus pneumonia Not Detected (Not Detect); Streptococcus pyogenes (Gr A) Not Detected (Not Detect); Streptococcus species Not Detected (Not Detect)
[2019-10-19 08:14] LABS: Candida albicans Not Detected (Not Detect); Candida glabrata Not Detected (Not Detect); Candida krusei Not Detected (Not Detect); Candida parapsilosis Not Detected (Not Detect); Candida tropicalis Not Detected (Not Detect); E. coli Detected (Not Detect); Haemophilus influenzae Not Detected (Not Detect); Neisseria meningitidis Not Detected (Not Detect); Pseudomonas aeruginosa Not Detected (Not Detect); Serratia marcescens Not Detected (Not Detect)
--- NOTE | 2019-10-19 08:49 | CM.DANOTE ---
Addendum entered by Melanie Cabrales R.N. 10/19/19 13:38: Patient is now on comfort measures, not expected to leave hospital. Family is at bedside, comfort meds are given. Original Note: DCP: Case received, EMR reviewed. Called patient's , Twyla. Introduced self over phone. Was able to obtain information regarding patient's baseline activity, and health. Patient is on droplet precautions, and according to , has some dementia. DCP assessment completed with information currently available. Patient is an 83 year old male who admitted yesterday evening to the care of the hospitalist team. PCP: Dr. Espino. Payer: confirmed: Medicare/[facility] [address]. Patient came to the hospital via ambulance secondary to increased confusion and weakness. Patient was also having increased shortness of breath. He is on COVID-19 rule out. Patient has history of prior CVA, and has a suprapubic catheter. He also has history of past [place]. His current diagnosis is [place], pulmonary edema, and acute renal failure. Spoke to patient's , Twyla. She mentioned, they don't want any invasive procedures done. Asked her about hospice, and stated, she thinks that it would be a good idea. She stated that she had spoken to Dr. Kohli this morning, and he stated, patient might not make it out of the hospital. stated that patient has been declining for a while. She stated that he uses a walker, but is spending more time in the wheel-chair. Stated that their daughter has been helping out as well. 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 is hoping that she can see her , but will depend upon testing. stated, they have not been in contact with anyone, and haven't left the home. Stated that they have their groceries delivered to their home. P: DCP to follow closely. Will see how he does, and can discuss hospice with provider when he comes in. Melanie Cabrales RN/School Business Manager
[2019-10-19] MEDS: NITROGLYCERIN OINT 1 INCH/GM OINT...G. 0.5 INCH TOP (09:10)
[2019-10-19] MEDS: SODIUM CHLORIDE 0.9% 1,000 ML 150 ML IV (09:40)
[2019-10-19] MEDS: LORazepam 2 MG/ML INJ 0.5 MG IV (11:47)
[2019-10-21 00:20] LABS: COVID19 Sendout NOT DETECTED
--- NOTE | 2019-10-21 13:12 | PM.DS.1 ---
History of Present Illness History of Present Illness Chief complaint: confusion Narrative: Patient is a an 83-year-old well known by our practice patient of Dr. Espino on cross covering for who presents with 24 hours of increased confusion and weakness. Was requested to come in for hypotension History primarily from patient unable to give coherent history or complaints. Apparently he was in this usual state health until yesterday when he began just saying he was tired. Really had no significant new change. Maybe had a slight cough. Was not complaining of chest pain. Was not complaining of abdominal pain. Did have 1 episode of vomiting yesterday. Had no fevers or chills. Apparently he has had decreased urine output. Does have a suprapubic catheter which was placed during his stroke back in June. Patient had progressively increased weakness, and felt maybe he was warm. He has not had any diarrhea. Otherwise has been his usual self. states he otherwise has not had a lot of other changes. Patient has a history of coronary artery disease with previous [place] x3. Parent Madelyn not significant. Has had no evidence of significant ongoing ischemia that she could identify. Patient has had progressive downhill course since his stroke in June. Quality of life continues to decrease. There is dementia progresses and who really has limited quality of life. Patient back in June had stated his wishes of DNR and no intubation. At that time he felt that he did not want a lot of serious interventions but was not ready for comfort care and hospice. feels as if things of progress. His speech is been difficult since his stroke. He does ambulate some but not a lot. Is confused most of the time. Has no other significant change. She feels is if he does not want a lot of intervention. Patient has not been out of the house. 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 Discharge Providers Provider Date of admission: 10/18/19 22:45 Discharge Date: 10/19/19 Primary care physician: Richard Espino MD Consults: 10/18/19 20:56 Consult to Respiratory Therapy Evaluate & Treat Comment: Physician Instructions: Evaluate and treat Discharge provider: Clint Kohli MD Summary Hospital Course Discharge Diagnosis: Hypotension Sepsis Myocardial infarction Acute renal failure Congestive heart failure Dementia Hospital Course: Patient was admitted. Had discussed extensively with about dire situation. Hypotension renal failure issues with fluid management. did not want aggressive management just wanted to try antibiotics and fluids. Blood cultures were 4/4 positive for E coli. Patient continued to be hypotensive despite relatively aggressive fluid management although could not be as aggressive as protocol secondary to concern over congestive heart failure with myocardial infarction. Kidneys did not seem to be improving with fluid hydration. and children were present and after seeing response decided to discuss comfort care. Discussed with issues around sepsis in his age group with multi organ failure outcomes discussed. Questions were answered. After discussions including taking into account his previous quality of life and it was elected that his desires would be for comfort care. We discontinued fluids and IV antibiotics and very shortly after patient . [place] [facility] [place]. Status at Discharge Overall status at discharge: other Exam Vital Signs (past 8 hours): Oxygen Delivery Method Nasal Cannula Oxygen Flow Rate 4 Narrative Exam Narrative: Patient was without respiratory rate or pulse Objective Labs Result Diagrams: 10/18/19 20:52 10/19/19 04:55 Labs: Laboratory Results - last 24 hr 10/18/19 21:05 COVID-19 PCR Not detected Discharge Plan Discharge Plan Patient Disposition: Discharge comment: Two more good Discharge orders & Medications Follow up/Referrals: Richard Espino MD [Primary Care Provider] - Discharge Data Primary Care Provider: Richard Espino Discharges patient from system. Discharge Date/Time: 10/19/19 16:33 Quality VTE Deep Vein Thrombosis/Pulmonary Embolism Present on Admission: No
== END 2019-10-19 16:33 | disposition expired | DRG 871 ==
LOC: ED 22:08 → AC 10-19 08:28
PROVIDERS: Admitting Provider Family Medicine; Emergency Provider Emergency Medicine; PCP Family Medicine; Referring Provider Emergency Medicine; Visit Provider Family Medicine
DX: A41.51 Sepsis due to Escherichia coli [E. coli] (principal); I21.9 Acute myocardial infarction, unspecified; J96.01 Acute respiratory failure with hypoxia; R65.21 Severe sepsis with septic shock; T83.518A Infection and inflammatory reaction due to other urinary catheter, initial encounter; N17.9 Acute kidney failure, unspecified; I13.0 Hypertensive heart and chronic kidney disease with heart failure and stage 1 through stage 4 chronic kidney disease, or unspecified chronic kidney disease; I50.9 Heart failure, unspecified; N18.3 Chronic kidney disease, stage 3 (moderate); F03.90 Unspecified dementia, unspecified severity, without behavioral disturbance, psychotic disturbance, mood disturbance, and anxiety; I69.398 Other sequelae of cerebral infarction; I69.328 Other speech and language deficits following cerebral infarction; R53.1 Weakness; M10.9 Gout, unspecified; N40.0 Benign prostatic hyperplasia without lower urinary tract symptoms; E78.5 Hyperlipidemia, unspecified; M35.3 Polymyalgia rheumatica; Z66 Do not resuscitate; Z95.1 Presence of aortocoronary bypass graft
CPT/HCPCS: 36415; 71045; 80048; 80053; 81001; 82550; 82553; 82728; 83605; 83615; 83735; 83880; 84145; 84484; 85025; 85610; 86140; 87040; 87077; 87086; 87150; 87186; 87205; 87635; 93005; 94762; 99285; J1720; J1940; J1956; J2060; J2270